=== PATIENT | female | born 1950 | race Caucasian/White ===

== ENCOUNTER 2019-10-08 11:57 | Day surgery (SDC) | payer MEDICARE ==
--- NOTE | 2019-10-05 05:55 | EKG ---
Test Date: 2019-10-04 Test Time: 17:15:57 Dispatcher Ship Pilot: ROYAL MEASUREMENT RESULTS: Intervals: Rate: 64 PA: 130 QRSD: 94 QT: 416 QTc: 429 Wagoner: P: 19 PA: 130 QRS: -38 T: 56 INTERPRETIVE STATEMENTS: Sinus rhythm with occasional premature ventricular complexes Left axis deviation Abnormal ECG No previous ECG available for comparison Electronically Signed On 10-05-19 05:54:48 PHARMACY CUSTOMER CARE SPECIALIST by Tom Lopez
--- OUTSIDE RECORDS SUMMARY | 2019-10-08 12:00 | XMS REPORT | Summary of Care ---
:1950 Author Organization [facility] Address [address] [place] [address] Care Team Providers Name Role Phone Ethan Hernandez Primary Care Provider Reason for Referral MRI/CAT Scan (Routine) Status Reason Specialty Diagnoses / Referred By Referred To Procedures Contact Contact New Request Diagnostic Diagnoses Chronic obstructive pulmonary disease, unspecified COPD type Solitary lung nodule Olga Bose, Radiology Procedures CT THORAX WO CONTRAST DO [address] [place] [phone] (Routine) Status Reason Specialty Diagnoses / Referred By Referred To Procedures Contact Contact New Request Pulmonary Function Diagnoses Chronic obstructive pulmonary disease, unspecified COPD type Olga Bose Technologist Procedures CONSULT/REFERRAL PULMONARY REHAB DO [address] [place] [phone] (Routine) Status Reason Specialty Diagnoses / Referred By Referred To Procedures Contact Contact New Request Pulmonary Function Diagnoses Chronic obstructive pulmonary disease, unspecified COPD type Olga Bose Technologist Procedures SIX MINUTE WALK Preferred Location: [facility] DO [address] [place] [phone] (Routine) Status Reason Specialty Diagnoses / Referred By Referred To Procedures Contact Contact New Request Pulmonary Function Diagnoses Chronic obstructive pulmonary disease, unspecified COPD type Bose, Shiwan, Technologist Procedures DIAGNOSTIC PROCEDURE Preferred Location: [facility] DO [address] [place] [phone] Reason for Visit Reason Comments Follow-up Results CT Scan Cough Encounter Details Date Type Department Care Team Description 09/23/2019 Office Visit [facility] Olga Bose DO Chronic obstructive pulmonary disease, unspecified COPD type (Primary Dx); Pulmonary Clinic [address] [place] [address] Solitary lung nodule [address] [place] [address] , [address] [phone] Allergies Active Allergy Reactions Severity Noted Date Comments Sulfa (Sulfonamide Antibiotics) Other - See comments 10/09/2017 Migraines Bupropion Hcl Anxiety 10/09/2017 documented as of this encounter (statuses as of 09/23/2019) Medications Medication Sig Dispensed Refills Start Date End Date Status albuterol 1.25 0 09/16/2017 Active mg/3 mL nebulizer solutionIndicatio ns: Kidney stones albuterol 90 Inhale 2 Puffs 0 Active mcg/actuation every 6 (six) inhaler hours as needed for Wheezing or Shortness of Breath. fluticasone-umecl INL 1 PUFF PO QD 0 04/06/2019 Active idin-vilanter (TRELEGY ELLIPTA) 100-62.5-25 mcg DsDv codeine-guaifenes Take 5 mL by 0 07/20/2019 09/23/2019 Discontinued in 10-100 mg/5 mL mouth. solution amoxicillin-clavu Take 1 tablet by 0 07/20/2019 09/23/2019 Discontinued lanate 875-125 mg mouth. per tablet documented as of this encounter (statuses as of 09/23/2019) Active Problems Problem Noted Date Obesity (BMI 30-39.9) 10/28/2017 Kidney stone on left side 10/20/2017 Overview: Added automatically from request for surgery [id number] documented as of this encounter (statuses as of 09/23/2019) Social History Tobacco Use Types Packs/Day Years Used Date Former Smoker Cigarettes 2 30 Quit: 2013 Smokeless Tobacco: Never Used Sex Assigned at Date Recorded Not on file Job Start Date Occupation Industry Not on file Not on file Not on file Travel History Travel Start Travel End No recent travel history available. documented as of this encounter Last Filed Vital Signs Vital Sign Reading Time Taken Comments Blood Pressure 150/89 09/23/2019 10:08 AM [employer] Pulse 69 09/23/2019 10:05 AM [employer] Temperature - - Respiratory Rate 18 09/23/2019 10:05 AM [employer] Oxygen Saturation 91% 09/23/2019 10:05 AM [employer] Inhaled Oxygen Concentration - - Weight 104.3 kg (230 lb) 09/23/2019 10:05 AM [employer] TE[employer] Height 167.6 cm (5' 6") 09/23/2019 10:05 AM [employer] TE[employer] Body Mass Index 37.12 09/23/2019 10:05 AM [employer] documented in this encounter Progress Notes Olga Bose, DO - 09/23/2019 10:20 AM CST [facility] Interventional Pulmonology [facility] Chief Complaint: Follow up for COPD History of Present Illness: Nina Alvarado is a 69 year old female here for follow up. Does have cough and phlegm production. Does have some shortness of breath especially with anxiety not as much with walking or going up two flights of stairs. Patient does note improvement of symptoms from Trelegy as well as Albuterol. Other issue: lung nodule, seen on CT scan. Not sure if she had prior CT scans although there is some suggestion nodule has been present in the past. Past Medical History: has no past medical history on file.. Reviewed no pertinent history Past Surgical History: has a past surgical history that includes [address]4445 - [place] CYSTO/URETERO W/LITHOTRIPSY &INDWELL STENT INSRT (10/28/2017) and ureteroscopic stone manipulation (Left, 10/28/2017). Family History: family history includes Lung Cancer in her mother and sister. Social History: reports that she quit smoking about 6 years ago. Her smoking use included cigarettes. She has a 60.00 pack-year smoking history. She has never used smokeless tobacco. Review of Systems: Review of Systems Constitutional: Negative. HENT: Negative. Eyes: Negative. Respiratory: Positive for cough and shortness of breath. Cardiovascular: Negative. Gastrointestinal: Negative. Genitourinary: Negative. Musculoskeletal: Negative. Skin: Negative. Neurological: Negative. Psychiatric/Behavioral: Negative. Endocrine: Endocrine negative Objective: BP (!) 150/89 | Pulse 69 | Resp 18 | Ht 5' 6" (1.676 m) | Wt 230 lb (104.3 kg) | SpO2 91% | BMI 37.12 kg/m Physical Exam Constitutional: She is oriented to person, place, and time. She appears well- developed and well-nourished. HENT: Head: Normocephalic and atraumatic. Eyes: Conjunctivae and EOM are normal. Neck: Normal range of motion. Neck supple. Cardiovascular: Normal rate and regular rhythm. Pulmonary/Chest: Effort normal. She has rhonchi in the right lower field and the left lower field. Abdominal: Soft. Bowel sounds are normal. Musculoskeletal: Normal range of motion. Neurological: She is alert and oriented to person, place, and time. Skin: Skin is warm and dry. Psychiatric: She has a normal mood and affect. Her behavior is normal. Judgment and thought content normal. Labs/Studies: CT thorax 9 mm left lung base pulmonary nodule, 3 cm opacity triangular left cardiophrenic angle, most likely atelectasis Assessment: ICD-10-CM ICD-9-CM 1. Chronic obstructive pulmonary disease, unspecified COPD type J44.9 496 2. Solitary lung nodule R91.1 793.11 Plan: 1. Will obtain PFT and six minute walk 2. Assuming PFTs qualify will refer to pulmonary rehab 3. Continue with Trelegy and Albuterol as well as nebulizers 4. Will get repeat CT scan to ensure stability of lung nodule > if patient can find previous imaging to document stability can defer repeat CT scan 4. Follow up 3 months documented in this encounter Plan of Treatment Date Type Specialty Care Team Description 12/23/2019 Office Visit Pulmonary Disease Olga Bose DO [address] [place] [phone] Name Type Priority Associated Diagnoses Order Schedule DIAGNOSTIC PROCEDURE PULMONARY FUNCTION Routine Chronic obstructive Ordered : Preferred Location: LAB pulmonary disease, 09/23/2019 [facility] unspecified COPD type SIX MINUTE WALK PULMONARY FUNCTION Routine Chronic obstructive Ordered: Preferred Location: LAB pulmonary disease, 09/23/2019 [facility] unspecified COPD type CT THORAX WO IMAGING Routine Chronic obstructive Expected: CONTRAST pulmonary disease, 09/23/2019, unspecified COPD Expires: type 09/23/2020 Solitary lung nodule Health Maintenance Due Date Last Done Comments HEPATITIS C (HCV) SCREEN 1950 DTaP,Tdap,and Td Vaccines (1 - 1963 Tdap) Breast Cancer Screening 1992 (MAMMOGRAM) COLONOSCOPY 2002 Zoster Recombinant Vaccine 2002 (SHINGRIX) (1 of 2) LUNG CANCER SCREEN: Recommended 2007 for age 55-80 with 30 + pack year history Medicare Wellness Visit 2017 Osteoporosis Screening 2017 PNEUMOCOCCAL VACCINES 65+ (1 of 2 2017 - PCV13) INFLUENZA VACCINE (#1) 2020 Postponed from 04/04/2019 (Refused) documented as of this encounter Implants Implanted Type Area Construction Producer Device Shelf Model / Identifier Expiration Serial / Date Lot Stent Ureteral 4.8fr Betsy 26cml [employer] [place] [employer] Ref#[id number] STENT Left: [place] 03/26/2019 [id number] / Implanted: Qty: 1 on 10/28/2017 by Lopez García MD at [facility] [employer] 0 / [id number] documented as of this encounter Results Not on filedocumented in this encounter Visit Diagnoses Diagnosis Chronic obstructive pulmonary disease, unspecified COPD type - Primary Solitary lung nodule Solitary pulmonary nodule documented in this encounter Insurance Payer Benefit Plan / Subscriber ID Effective Phone Address Type Group Dates [place] AARP MEDICARE [id number] 2017-Prese Medicare Adv HEALTHCARE - COMPLETE nt O MANAGED MEDICARE [id number] (Home) [place] [id number] documented as of this encounter
--- OUTSIDE RECORDS SUMMARY | 2019-10-08 12:00 | XMS REPORT | Summary of Care ---
:1950 Author Organization [facility] Address [address] [place] [address] Care Team Providers Name Role Phone Ethan Hernandez Primary Care Provider Reason for Referral MRI/CAT Scan (Routine) Status Reason Specialty Diagnoses / Referred By Referred To Procedures Contact Contact New Request Diagnostic Diagnoses Chronic obstructive pulmonary disease, unspecified COPD type Solitary lung nodule Olga Bose, Radiology Procedures CT THORAX WO CONTRAST DO [address] [place] [phone] (Routine) Status Reason Specialty Diagnoses / Referred By Referred To Procedures Contact Contact New Request Pulmonary Function Diagnoses Chronic obstructive pulmonary disease, unspecified COPD type Olga Bose Technologist Procedures CONSULT/REFERRAL PULMONARY REHAB DO [address] [place] [phone] (Routine) Status Reason Specialty Diagnoses / Referred By Referred To Procedures Contact Contact New Request Pulmonary Function Diagnoses Chronic obstructive pulmonary disease, unspecified COPD type Olga Bose Technologist Procedures SIX MINUTE WALK Preferred Location: [facility] DO [address] [place] [phone] (Routine) Status Reason Specialty Diagnoses / Referred By Referred To Procedures Contact Contact New Request Pulmonary Function Diagnoses Chronic obstructive pulmonary disease, unspecified COPD type Bose, Shiwan, Technologist Procedures DIAGNOSTIC PROCEDURE Preferred Location: [facility] DO [address] [place] [phone] Reason for Visit Reason Comments Follow-up Results CT Scan Cough Encounter Details Date Type Department Care Team Description 09/23/2019 Office Visit [facility] Olga Bose DO Chronic obstructive pulmonary disease, unspecified COPD type (Primary Dx); Pulmonary Clinic [address] [place] [address] Solitary lung nodule [address] [place] [address] , [address] [phone] Allergies Active Allergy Reactions Severity Noted Date [...] Comments Blood Pressure 150/89 09/23/2019 10:08 AM BOOKKEEPING TEACHER Pulse 69 09/23/2019 10:05 AM BOOKKEEPING TEACHER Temperature - - Respiratory Rate 18 09/23/2019 10:05 AM BOOKKEEPING TEACHER Oxygen Saturation 91% 09/23/2019 10:05 AM BOOKKEEPING TEACHER Inhaled Oxygen Concentration - - Weight 104.3 kg (230 lb) 09/23/2019 10:05 AM BOOKKEEPING TEACHER Height 167.6 cm (5' 6") 09/23/2019 10:05 AM BOOKKEEPING TEACHER Body Mass Index 37.12 09/23/2019 10:05 AM BOOKKEEPING TEACHER documented in this encounter Progress Notes Olga Bose, DO - 09/23/2019 10:20 AM CST [facility] Interventional Pulmonology Clinic Chief Complaint: Follow up [...] has a past surgical history that includes [address]47 - [place] CYSTO/URETERO W/LITHOTRIPSY &INDWELL STENT INSRT (10/28/2017) and [...] Office Visit Pulmonary Disease Olga Bose DO [address] [place] [phone] Name Type Priority Associated Diagnoses Order Schedule [...] of this encounter Implants Implanted Type Area Potato Inspector Device Shelf Model / Identifier Expiration Serial / Date Lot Stent Ureteral 4.8fr Betsy 26cml [employer] [place] [employer] Ref#[id number] STENT Left: [place] 03/26/2019 [id number] / Implanted: Qty: 1 on 10/28/2017 by Lopez García MD at [facility] [employer] 0 / [id number] documented as of this encounter Results Not on filedocumented in this encounter Visit Diagnoses Diagnosis Chronic obstructive pulmonary disease, unspecified COPD type - Primary Solitary lung nodule Solitary pulmonary nodule documented in this encounter Insurance Payer Benefit Plan / Subscriber ID Effective Phone Address Type Group Dates [place] AARP MEDICARE [id number] 2017-Prese Medicare Adv HEALTHCARE - COMPLETE nt O MANAGED MEDICARE [id number] (Home) [place] [id number] documented as of this encounter
--- OUTSIDE RECORDS SUMMARY | 2019-10-08 12:00 | XMS REPORT ---
:1950 Author Organization [facility] Address [address] [place] [address] Dr. Ndiaye [address] [place] [address] Care Team Providers Name Role Phone Unavailable Unavailable Unavailable Problems This patient has no known problems. Allergies, Adverse Reactions, Alerts This patient has no known allergies or adverse reactions. Medications This patient has no known medications.
--- OUTSIDE RECORDS SUMMARY | 2019-10-08 12:00 | XMS REPORT | Summary of Care ---
:1950 Author Organization [facility] Address [address] [place] [address] Care Team Providers Name Role Phone Ethan Hernandez Primary Care Provider Reason for Referral MRI/CAT Scan (Routine) Status Reason Specialty Diagnoses / Referred By Referred To Procedures Contact Contact Closed Diagnostic Diagnoses Chronic obstructive pulmonary disease, unspecified COPD type Solitary lung nodule Chronic obstructive pulmonary disease, unspecified COPD type Olga Bose DO Radiology Procedures CT LUNG NODULE CT THORAX WO CONTRAST CHG CT SCAN,THORAX,W/O CONTRAST CT THORAX WO CONTRAST [address] [place] [phone] Reason for Visit MRI/CAT Scan (Routine) Status Reason Specialty Diagnoses / Referred By Referred To Procedures Contact Contact Closed Diagnostic Diagnoses Chronic obstructive pulmonary disease, unspecified COPD type Solitary lung nodule Chronic obstructive pulmonary disease, unspecified COPD type Olga Bose DO Radiology Procedures CT LUNG NODULE CT THORAX WO CONTRAST CHG CT SCAN,THORAX,W/O CONTRAST CT THORAX WO CONTRAST [address] [place] [phone] Encounter Details Date Type Department Care Team Description 10/06/2019 Hospital Encounter [facility] Olga Bose DO Arrived [facility] [address] [place] [phone] Allergies Active Allergy Reactions Severity Noted Date Comments Sulfa (Sulfonamide Antibiotics) Other - See comments 10/09/2017 Migraines Bupropion Hcl Anxiety 10/09/2017 documented as of this encounter (statuses as of 10/07/2019) Medications Medication Sig Dispensed Refills Start Date End Date Status albuterol 1.25 mg/3 0 09/16/2017 Active mL nebulizer solutionIndications: Kidney stones albuterol 90 Inhale 2 Puffs 0 Active mcg/actuation inhaler every 6 (six) hours as needed for Wheezing or Shortness of Breath. fluticasone-umeclidin INL 1 PUFF PO QD 0 04/06/2019 Active -vilanter (TRELEGY ELLIPTA) 100-62.5-25 mcg DsDv documented as of this encounter (statuses as of 10/07/2019) Active Problems Problem Noted Date Obesity (BMI 30-39.9) 10/28/2017 Kidney stone on left side 10/20/2017 Overview: Added automatically from request for surgery [id number] documented as of this encounter (statuses as of 10/07/2019) Social History Tobacco Use Types Packs/Day Years Used Date Former Smoker Cigarettes 2 30 Quit: 2013 Smokeless Tobacco: Never Used Sex Assigned at Date Recorded Not on file Job Start Date Occupation Industry Not on file Not on file Not on file Travel History Travel Start Travel End No recent travel history available. documented as of this encounter Last Filed Vital Signs Not on filedocumented in this encounter Plan of Treatment Date Type Specialty Care Team Description 12/23/2019 Office Visit Pulmonary Disease Olga Bose DO [address] [place] [phone] Health Maintenance Due Date Last Done Comments HEPATITIS C (HCV) SCREEN 1950 DTaP,Tdap,and Td Vaccines (1 - 1963 Tdap) Breast Cancer Screening 1992 (MAMMOGRAM) COLONOSCOPY 2002 Zoster Recombinant Vaccine 2002 (SHINGRIX) (1 of 2) Medicare Wellness Visit 2017 Osteoporosis Screening 2017 PNEUMOCOCCAL VACCINES 65+ (1 of 2 2017 - PCV13) INFLUENZA VACCINE (#1) 2020 Postponed from 04/04/2019 (Refused) LUNG CANCER SCREEN: Recommended 10/05/2020 10/06/2019 for age 55-80 with 30 + pack year history documented as of this encounter Implants Implanted Type Area Textile Machine Mechanic Device Shelf Model / Identifier Expiration Serial / Date Lot Stent Ureteral 4.8fr Betsy 26cml [employer] [place] [employer] Ref#[id number] STENT Left: [place] 03/26/2019 [id number] / Implanted: Qty: 1 on 10/28/2017 by Lopez García MD at [facility] [employer] 0 / [id number] documented as of this encounter Procedures Procedure Name Priority Date/Time Associated Diagnosis Comments CT LOW DOSE LUNG Routine 10/06/2019 1:33 PM Chronic obstructive Results for this NODULE DATA WAREHOUSING ARCHITECT pulmonary disease, procedure are in unspecified COPD the results type section. Solitary lung nodule documented in this encounter Results CT LUNG NODULE (10/06/2019 1:33 PM DATA WAREHOUSING ARCHITECT) Specimen Impressions Performed At Multiple lung nodules including calcified nodules. Lung RADS PACS/VR/DOSE Category 2-S. Recommendation: Continue with annual screening Category 2 : Negative screen - nodules with benign appearance or behavior - continue annual screening in 12 months S modifier : COPD with dilated central pulmonary arteries, suggestive of pulmonary arterial hypertension. Narrative Performed At PROCEDURE: CT CHEST NON CONTRAST ? LUNG CANCER SCREENING. PACS/VR/DOSE CLINICAL INDICATION: Lung nodule, <1cm, mod-high risk COMPARISON: None. TECHNIQUE: Low dose helical CT was acquired from lung apices to bases was obtained and reconstructed at 1 mm, without intravenous contrast. MIP and coronal & sagittal MPR images were generated and reviewed. (DFOV=44.4 cm) FINDINGS: Lower neck/thyroid: Unremarkable. Lungs: Obstructive lung disease noted with numerous panacinar type emphysematous bulla scattered throughout both lungs with the upper lobe predominate. Minimal fibrosis is seen in the right lower lung and left lingula segment. Following lung nodules are visualized: Slightly irregular shaped 8mm nodule in the posterior left lower lung (8:71) with probable faint calcification in it. 2. Irregular shaped 5 mm pleural-based nodule in lateral left lower lung (8:60). 4 mm nodule in left lower lung (8:58) 2 mm nodule in the right lower lung (8:16). 2 mm nodule right lower lung (8:45) 2 mm calcified nodule in anterior right lung) 8:42). Irregular shaped 5 mm nodule in posterior right upper lung (8:33). 2 mm nodule lateral right upper lung (8:16). 3 mm nodule in right middle lobe (8:67) 6 mm nodule anterior right upper lobe (8:47) 2 mm nodule in lateral right lower lung (8:47) Questionable 3 mm nodule versus vessel bifurcation (8:59). Central airway: Unremarkable. Pleura: No pleural effusion, thickening or pneumothorax. Thoracic aorta and great vessels: Bilateral superior vena cava noted. Normal in diameter. Mild atherosclerotic disease affects the visualized aorta. Pulmonary arteries: Dilated central pulmonary arteries. Main pulmonary artery 3.6 cm. Heart and pericardium: No detectable coronary arterial calcification. Unremarkable cardiac morphology and pericardium. Lymph nodes: No enlarged thoracic lymph nodes. Mediastinum: Unremarkable. Thoracic spine and chest wall: No aggressive bone lesions or compression deformity in the thoracic vertebral bodies. Midthoracic dextroscoliosis. Degenerative disc disease with disc osteophyte complex encroaching into the spinal canal at T9-T10 level. Other Lines/Tubes/Devices/Hardware: None Visualized upper abdomen: Unremarkable. Procedure Note [facility], Radiant Results Inft User - 10/06/2019 1:48 PM DATA WAREHOUSING ARCHITECT PROCEDURE: CT CHEST NON CONTRAST ? LUNG CANCER SCREENING. CLINICAL INDICATION: Lung nodule, <1cm, mod-high risk COMPARISON: None. TECHNIQUE: Low dose helical CT was acquired from lung apices to bases was obtained and reconstructed at 1 mm, without intravenous contrast. MIP and coronal & sagittal MPR images were generated and reviewed. (DFOV=44.4 cm) FINDINGS: Lower neck/thyroid: Unremarkable. Lungs: Obstructive lung disease noted with numerous panacinar type emphysematous bulla scattered throughout both lungs with the upper lobe predominate. Minimal fibrosis is seen in the right lower lung and left lingula segment. Following lung nodules are visualized: Slightly irregular shaped 8mm nodule in the posterior left lower lung (8:71) with probable faint calcification in it. 2. Irregular shaped 5 mm pleural-based nodule in lateral left lower lung (8:60). 4 mm nodule in left lower lung (8:58) 2 mm nodule in the right lower lung (8:16). 2 mm nodule right lower lung (8:45) 2 mm calcified nodule in anterior right lung) 8:42). Irregular shaped 5 mm nodule in posterior right upper lung (8:33). 2 mm nodule lateral right upper lung (8:16). 3 mm nodule in right middle lobe (8:67) 6 mm nodule anterior right upper lobe (8:47) 2 mm nodule in lateral right lower lung (8:47) Questionable 3 mm nodule versus vessel bifurcation (8:59). Central airway: Unremarkable. Pleura: No pleural effusion, thickening or pneumothorax. Thoracic aorta and great vessels: Bilateral superior vena cava noted. Normal in diameter. Mild atherosclerotic disease affects the visualized aorta. Pulmonary arteries: Dilated central pulmonary arteries. Main pulmonary artery 3.6 cm. Heart and pericardium: No detectable coronary arterial calcification. Unremarkable cardiac morphology and pericardium. Lymph nodes: No enlarged thoracic lymph nodes. Mediastinum: Unremarkable. Thoracic spine and chest wall: No aggressive bone lesions or compression deformity in the thoracic vertebral bodies. Midthoracic dextroscoliosis. Degenerative disc disease with disc osteophyte complex encroaching into the spinal canal at T9-T10 level. Other Lines/Tubes/Devices/Hardware: None Visualized upper abdomen: Unremarkable. IMPRESSION Multiple lung nodules including calcified nodules. Lung RADS Category 2-S. Recommendation: Continue with annual screening Category 2 : Negative screen - nodules with benign appearance or behavior - continue annual screening in 12 months S modifier : COPD with dilated central pulmonary arteries, suggestive of pulmonary arterial hypertension. Performing Organization Address City/State/Zipcode Phone Number PACS/VR/DOSE documented in this encounter Visit Diagnoses Diagnosis Chronic obstructive pulmonary disease, unspecified COPD type Solitary lung nodule Solitary pulmonary nodule documented in this encounter Insurance Payer Benefit Plan / Subscriber ID Effective Phone Address Type Group Dates [place] [id number] [facility] HE[facility] - MEDICARE HMO MANAGED MEDICARE ADVANTAGE documented as of this encounter
[2019-10-08] MEDS ORDERED: Ringers Lactate 1,000 ML IV ONE (12:32)
[2019-10-08] MEDS ORDERED: LIDOCAINE 1% W/EPI 1:100,000 MDV 20 ML VIAL ONE ×2 (13:26→13:34)
[2019-10-08] MEDS ORDERED: LIDOCAINE 2% MPF 5 ML VIAL ONE (13:35)
[2019-10-08] MEDS ORDERED: propofoL 200 MG/20 ML VIAL IV ONE (13:35)
[2019-10-08] MEDS ORDERED: FENTANYL CITR 100 MCG/2 ML ONE (13:35)
[2019-10-08] MEDS ORDERED: MIDAZOLAM HCL 2 MG/2 ML INJ ONE (13:36)
[2019-10-08] MEDS ORDERED: ONDANSETRON 4 MG/2 ML VIAL ONE (13:36)
[2019-10-08 16:24] VITALS: BP 152/67; TEMP 99.2; O2SAT 96
--- NOTE | 2019-10-08 17:44 | P.BOP ---
Preoperative diagnosis: BCC nose Postoperative diagnosis: same Primary procedure: WLE nose 1.2 cm with FS, layered intermediate closure Protective Signal Operator: NONE,NONE Estimated blood loss: <5ml Specimen: nose BCC, suture 12 oclock, margins negative on FS Anesthesia: General Complications: None Drain(s): Nasogastric Fluids & blood products: see anesthesia record Transferred to: Recovery Room Condition: Good
--- NOTE | 2019-10-09 02:06 | OP ---
Date of Procedure: 10/08/2019 Surgeon: Barbra Mendes MD Preoperative Diagnosis: Basal cell carcinoma left nasal ala. Postoperative Diagnosis: Basal cell carcinoma left nasal ala. Procedure: Excision of skin cancer of the nose with closure by a layered intermediate repair. Indication For Procedure: Nina Alvarado presented with a biopsy confirmed basal cell carcinoma. At the site of the biopsy, she had persistent crusting and a small area suspicious for gross residual di sease. The risks, benefits, and alternatives to procedure were discussed with the patient who agreed to proceed. Description Of Procedure: The patient was brought to the operating room. She was placed under gener al anesthesia via LMA. The area of the left nose, cheek, and upper lip are injected with 1% lidocain e with epinephrine. The area of her biopsy was closely inspected and excision was made of the site i ncluding the base of the nasal ala extending slightly into the alar crease on to the medial cheek and upper portion of the lip. The skin was incised using the needlepoint electrocautery. Full-thicknes s skin was removed and the specimen was marked with a suture at 12 o'clock, corresponding with the grimm periormost aspect of the lesion. The specimen was sent to Pathology for frozen section analysis to c onfirm negative margins. These margins were confirmed as negative and plan for closure was made. Th e defect was approximately 1 x 1.2 cm. The surrounding skin of the cheek was carefully undermined us ing the Bovie. The skin was then advanced over the defect and held in place using a 4-0 Vicryl sutur e. The skin was then closed using a 5-0 nylon with interrupted sutures. Triple antibiotic ointment was applied to the incision and the patient was returned to care of Anesthesia for awakening, extubat ion in the operating room, which proceeded without difficulty. The patient will be discharged home today and follow up with Dr. Mendes in about 10 days for removal of her sutures. SHIRLEY/CRUZITO Voice ID: [id number] Report ID: [id number]
== END 2019-10-08 16:10 | disposition home or self-care (01) ==
LOC: OR 11:57
PROVIDERS: ATTEND Otolaryngology
PROC: 0HB1XZZ Excision of Face Skin, External Approach (ICD-10-PCS; principal; 2019-10-08 13:30)
DX: C44.311 Basal cell carcinoma of skin of nose (principal); J44.9 Chronic obstructive pulmonary disease, unspecified; Z88.2 Allergy status to sulfonamides; Z88.8 Allergy status to other drugs, medicaments and biological substances; E66.01 Morbid (severe) obesity due to excess calories; Z68.37 Body mass index [BMI] 37.0-37.9, adult; Z80.9 Family history of malignant neoplasm, unspecified
CPT/HCPCS: 93005; 88331; 88332; 88305; 12051; 11642; J2704; J2250; J3010; J7120; J2405

== ENCOUNTER 2023-06-03 10:15 | Day surgery (SDC) | payer MEDICARE ==
[2023-05-19 11:24] LABS: Absolute Lymphocytes (CBC) 1.3 K/uL (0.7-4.9); Hematocrit 45.4 % (36.0-45.0); MCV 90.2 fL (80-100); MPV 8.6 fL (7.6-11.3); Platelets 180 thou/uL (152-406); RBC Red Blood Cell Count 5.03 M/uL (3.86-4.86)
[2023-05-19 11:39] LABS: Potassium 3.8 mEq/L (3.5-5.1)
[2023-05-19 11:40] LABS: Protime INR 1.28
--- NOTE | 2023-05-19 13:23 | RAD REPORT ---
EXAM DESCRIPTION: RAD - Chest Pa And Lat (2 Views) - 05/19/2023 11:37 am CLINICAL HISTORY: Pre op pending ESWL. Hypertension COMPARISON: No comparisons TECHNIQUE: PA and lateral views of the chest were obtained. FINDINGS: Patchy left basilar airspace opacities, possibly pertaining to the left lingula. Heart siz e is normal and central vasculature is within normal limits. No pleural effusion or pneumothorax seen . No acute bony finding noted. IMPRESSION: Patchy left basilar airspace opacities, may reflect atelectasis or residual/ early pneum onia. .
[2023-06-03] MEDS ORDERED: Ringers Lactate 1,000 ML IV ONE (10:32)
[2023-06-03] MEDS ORDERED: CEFAZOLIN SODIUM 2 GM/VIAL ONE (14:31)
--- NOTE | 2023-06-03 15:15 | RAD REPORT ---
EXAM DESCRIPTION: RAD - Abdomen 1 View (KUB) - 06/03/2023 2:37 pm CLINICAL HISTORY: PREOP. Hypertension COMPARISON: No comparisons TECHNIQUE: Single AP view of the abdomen. FINDINGS: Nonobstructive bowel gas pattern. No air-fluid levels, free air, or pneumatosis. Left flan k radiopaque calcifications largest measure 1.4 cm. Few pelvic phleboliths. No significant bony abnormality. IMPRESSION: Left flank calcifications suggestive of renal calculi.
[2023-06-03] MEDS ORDERED: FENTANYL CITR 100 MCG/2 ML ONE (15:37)
[2023-06-03] MEDS ORDERED: propofoL 200 MG/20 ML VIAL IV ONE (15:37)
[2023-06-03] MEDS ORDERED: MIDAZOLAM HCL 2 MG/2 ML INJ ONE (15:38)
[2023-06-03] MEDS ORDERED: LIDOCAINE 2% MPF 5 ML VIAL ONE (15:40)
[2023-06-03] MEDS ORDERED: ONDANSETRON 4 MG/2 ML VIAL ONE (15:40)
[2023-06-03] MEDS ORDERED: dexAMETHasone 4 MG/ML VIAL ONE (16:03)
[2023-06-03] MEDS ORDERED: CODEINE 30MG/APAP 300MG TAB PO PRN (17:06)
[2023-06-03 18:01] VITALS: BP 107/89; TEMP 97.2; O2SAT 93
[2023-06-03] MEDS ORDERED: CODEINE 30MG/APAP 300MG TAB ONE (18:08)
--- NOTE | 2023-06-03 21:10 | OP ---
Surgeon: RODRI BREWER Preoperative Diagnoses: 1.Gross hematuria. 2.Chronic anticoagulation with Eliquis relative to history of atrial fibrillation. 3.Status post unremarkable cystoscopy, 04/02/2023. 4.Status post CT urography, 02/13/2023, revealing a 1.1 cm midpole left renal calculus without evide nce of renal mass or filling defect. Postoperative Diagnoses: 1.Gross hematuria. 2.Chronic anticoagulation with Eliquis relative to history of atrial fibrillation. 3.Status post unremarkable cystoscopy, 04/02/2023. 4.Status post CT urography, 02/13/2023, revealing a 1.1 cm midpole left renal calculus without evide nce of renal mass or filling defect. Principal Procedure: Left extracorporeal shock wave lithotripsy/ESWL. Indication For Procedure: Ms. Alvarado presented [facility] with gross hematuria in the set ting of a history of smoking. She underwent CT urography in February that was unremarkable except for th e presence of a 1.1 cm left interpolar renal calculus. She underwent cystoscopy on 04/02/2023, which revealed a markedly trabeculated detrusor with wide-mouth right lateral wall diverticulum, but no si gns of urothelial malignancy. She was thus counseled on the potential that the stone burden in the s etting of the Eliquis was contributing to her gross hematuria and recommended for management of the s tone. KUB was obtained preoperatively and did verify the visibility of the stone, which was measured at around 10 to 14 mm. Procedure In Detail: The patient was consented in the preoperative holding area before being transfe rred to the operative suite where general anesthesia was induced. She was given Ancef 2 g IV antimic robial prophylaxis and pneumo boots were provided for DVT prophylaxis. She was placed supine on the procedure table with a water bath beneath her flank. Shockwave lithotripsy targeting was then perfor med in the anteroposterior as well as the dorsal ventral and left-right positions to center on the ce ntral portion of the stone burden, which was somewhat oblong and in at least 2 pieces. Shockwave lit hotripsy was then begun, slowly increasing the power, delivered to the stone over the course of about 500 shocks and with 2 minutes pause between 250 and 300 shocks given. After about 1200 shocks had b een delivered, the stone burden had broken up significantly, and the pieces of the stone had distribu shirin themselves within the upper pole and lower pole calices of the kidney. So, each of those fragmen ts were then independently targeted over the course of another 1200 shocks for a total of around 2500 shocks delivered before we reassessed and found mostly dust remnants within the mid and lower pole c alices as well as the upper pole calyx with density remaining in each of those locations. As a resul t, we targeted the midpole densities again and shocked for the remaining 500 shocks in order to ensur e complete fragmentation of the stone burden. A total of 3000 shocks were delivered, and the shock w ave lithotripsy was concluded. She was then awakened from general anesthesia, transferred to a [facility], and then transferred to the recovery room in good condition. Complications: None. Discharge Disposition: Follow up will be required to ensure resolution of the gross hematuria follow ing treatment of the stones. She will strain her urine for any stone fragments and bring them with h er to the office for chemical analysis. Subsequent episodes of gross hematuria will require definiti ve surgical re-evaluation. If she is a recurrent stone former, metabolic profile assessment will be required in 1 to 2 months. KUB should be obtained prior to followup in about 2 to 3 months after the metabolic profile assessment has been completed if necessary. NINOSKA/CRUZITO Voice ID: [id number] Report ID: [id number]
== END 2023-06-03 18:20 | disposition home or self-care (01) ==
LOC: OR 10:15
PROVIDERS: ATTEND Urology
PROC: 0TF4XZZ Fragmentation in Left Kidney Pelvis, External Approach (ICD-10-PCS; principal; 2023-06-03 11:45)
DX: N20.0 Calculus of kidney (principal); R31.0 Gross hematuria; I48.11 Longstanding persistent atrial fibrillation; N39.8 Other specified disorders of urinary system; J44.9 Chronic obstructive pulmonary disease, unspecified; Z79.01 Long term (current) use of anticoagulants; Z87.891 Personal history of nicotine dependence; Z88.2 Allergy status to sulfonamides; Z88.8 Allergy status to other drugs, medicaments and biological substances; I10 Essential (primary) hypertension; E66.9 Obesity, unspecified; Z68.35 Body mass index [BMI] 35.0-35.9, adult; G47.33 Obstructive sleep apnea (adult) (pediatric)
CPT/HCPCS: 87088; 85025; 87086; 80048; 36415; 85610; 85730; 74018; 71046; 50590; J2704; J1100; J2001; J2250; J3010; J2405; J7120

== ENCOUNTER 2023-12-07 20:32 | Inpatient (IN) | payer MEDICARE ==
--- OUTSIDE RECORDS SUMMARY | 2023-12-07 20:37 | XMS REPORT | Continuity of Care Document ---
Author Name Unknown Address [address] [facility] [address] [place] [address] [facility] Address [address] [facility] [address] [place] [address] Care Team Providers Care Associate Professor Of Anthropology Name Role Phone EMILY HERNANDEZ Primary Care Physician Unavailab EMILY Pierce Attending Clinician Unavailable Aixa Sánchez Attending Clinician [phone] Dave Lemon Attending Clinician UnavailObi Herrera Attending Clinician Unavailable Christina Capone Attending Clinician Demetra Woodall Attending Clinician [phone] Lyle Schaefer Attending Clinician Unavailable Gonzalo_Ean Attending Clinician Unavailable GAYLORD_S Attending Clinician Unavailable Efrain Hogeu DO Attending Clinician EFRAIN HOGUE Attending Clinician Unavailable EFRAIN HOGUE Attending Clinician Unavailable Doctor Unassigned, [place] Attending Clinician U navailable Dave Lemon Admitting Clinician UnavailObi Herrera Admitting Clinician Unavailable Physician, No Primary or Family Admitting Clinic higinio Unavailable Lyle Schaefer Admitting Clinician Unavailable Gonzalo_Ean Admitting Clinician Unavailable GAYLORD_S Admitting Clinician Unavailable EFRAIN HOGUE Admitting Clinician Unavailable Payers Payer Name Policy Type Policy Number Effective Date Expirati on Date Source [employer] (MEDICARE REPLACEMENT HMO) [id number] 2020 00:00:00 Problems Condition Name Condition Details Condition Category Status Onset Date Resolution Date Last Treatment Date Treating Clinician Comments Source Obesity (BMI 30-39.9) Obesity (BMI 30-39.9) Disease Active 3- 00:00: 00 [facility] Nephrolith iasis Left nephrolith iasis Problem [facility] [id number] Chronic anticoagul ation Problem [facility] [id number] Gross hematuria Problem [facility] [id number] Voiding dysfunctio n Problem [facility] [id number] Recurrent nephrolith iasis Problem [facility] [id number] Lower urinary tract symptoms (LUTS) Problem [facility] [id number] OAB (overactiv e bladder) Problem [facility] Allergies, Adverse Reactions, Alerts Allergy Name Allergy Type Status Severity Reaction(s) Onset Date Inactive Date Treating Clinician Comments Source Sulfa (Sulfona mide Antibiot ics) DA Active [place] MIGRAINES 2022-08-19 00:00: 00 [facility] bupropio n DA Active [place] ANXIETY 2022-08 219 00:00: 00 [facility] bupropio n DA Active MO ANXIETY 8-11 00:00: 00 [facility] Sulfa (Sulfona mide Antibiot ics) DA Active MO MIGRAINES 3-15 00:00: 00 [facility] Sulfa (Sulfona mide Antibiot ics) DA Active MO MIGRAINES 3-14 00:00: 00 [facility] Sulfa (Sulfona mide Antibiot ics) Propensi ty to adverse reaction s Active Other - See comments 3- 00:00: 00 [facility] Bupropio n Hcl Propensi ty to adverse reaction s Active Anxiety 3-08 00:00: 00 [facility] SULFA (SULFONA MIDE ANTIBIOT ICS) Drug Class Active Other-Cmnt 10-09 00:00: 00 [facility] BUPROPIO N HCL DRUG INGREDI Active Anxiety 10-09 00:00: 00 [facility] [address] Drug allergy Active Unknown [facility] Substanc e with sulfonam diana structur e and antibact erial mechanis m of action (substan ce) Substanc e with sulfonam diana structur e and antibact erial mechanis m of action (substan ce) Active Unknown [facility] Social History Social Habit Start Date Stop Date Quantity Comments Source History of Tobacco Use [facility] Sex Assigned At [facility] Cigarettes smoked current (pack per day) - Reported 2019-09-23 00:00:00 2019-09-23 00:00:00 [facility] Tobacco use and exposure 2019-09-23 00:00:00 2019-09-23 00:00:00 Never used [facility] Cigarette pack-years 2019-09-23 00:00:00 2019-09-23 00:00:00 [facility] Smoking Status Start Date Stop Date Source Former Smoker 2023-09-10 00:00:00 2023-09-10 00:00:00 [facility] Medications Ordered Medication Name Filled Medication Name Start Date Stop Date Current Medication? Ordering Clinician Indication Dosage Frequency Signature (SIG) Comments Components Source Solifenacin Succinate 5 MG Solifenacin Succinate 5 MG 2- 00:00: 00 No 1{table t} QD Solifenaci n Succinate 5 MG Solifenacin Succinate 5 MG Solifenacin Succinate 5 MG 2- 00:00: 00 No 1{table t} QD Solifenaci n Succinate 5 MG Solifenacin Succinate 5 MG Solifenacin Succinate 5 MG 2- 00:00: 00 No 1{table t} QD Solifenaci n Succinate 5 MG doxycycline monohydrate 100 mg tablet 904 00:00: 00 Yes 100mg Take 1 tablet by mouth 2 (two) times daily. [facility] predniSONE 10 mg tablet 04-07 00:00: 00 04-13 04:59 :00 No 40mg Take 4 tablets by mouth daily for 5 days. [facility] albuterol 90 mcg/actuati on inhaler 2018-08 22:12: 26 Yes 2{puff} Inhale 2 Puffs every 6 (six) hours as needed for Wheezing or Shortness of Breath. [facility] codeine-gua ifenesin 10-100 mg/5 mL solution 2018-08 00:00: 00 09-23 00:00 :00 No 5mL Take 5 mL by mouth. [facility] amoxicillin -clavulanat e 875-125 mg per tablet 2018-08 00:00: 00 09-23 00:00 :00 No 1{tbl} Take 1 tablet by mouth. [facility] fluticasone -umeclidin- vilanter (TRELEGY ELLIPTA) 100-62.5-25 mcg DsDv 04-06 00:00: 00 Yes INL 1 PUFF PO QD [facility] albuterol 1.25 mg/3 mL nebulizer solution 09-16 00:00: 00 Yes [id number] [facility] Magnesium 400 MG Magnesium 400 MG No Magnesium 400 MG Losartan Potassium 50 MG Losartan Potassium 50 MG No 1{table t} QD Losartan Potassium 50 MG Carvedilol 3.125 MG Carvedilol 3.125 MG No 1{table t_with_ food} BID Carvedilol 3.125 MG Vitamin C Vitamin C No Vitamin C predniSONE 10 MG predniSONE 10 MG No 1{table t} QD predniSONE 10 MG Zinc 50 MG Zinc 50 MG No 1{ table t} QD Zinc 50 MG Flecainide Acetate 50 MG Flecainide Acetate 50 MG No Flecainide Acetate 50 MG Breztri Aerosphere 160-9-4.8 MCG/ACT Breztri Aerosphere 160-9-4.8 MCG/ACT No 2{puffs } BID Breztri Aerosphere 160-9-4.8 MCG/ACT Vitamin D3 50 MCG (1999 UT) Vitamin D3 50 MCG (1999) No 1{table t} QD Vitamin D3 50 MCG (1999) Levalbutero l Tartrate 45 MCG/ACT Levalbutero l Tartrate 45 MCG/ACT No 1{puff_ as_need ed} QID Levalbuter ol Tartrate 45 MCG/ACT Eliquis 5 MG Eliquis 5 MG No 1{table t} BID Eliquis 5 MG Calcium 600 MG Calcium 600 MG No 1{table t_with_ meals} BID Calcium 600 MG Losartan Potassium 50 MG Losartan Potassium 50 MG No 1{table t} QD Losartan Potassium 50 MG Eliquis 5 MG Eliquis 5 MG No 1{table t} BID Eliquis 5 MG Zinc 50 MG Zinc 50 MG No 1{ table t} QD Zinc 50 MG Potassium Gluconate 595 MG Potassium Gluconate 595 MG No 1{capsu le_with _food} QD Potassium Gluconate 595 MG Breztri Aerosphere 160-9-4.8 MCG/ACT Breztri Aerosphere 160-9-4.8 MCG/ACT No 2{puffs } BID Breztri Aerosphere 160-9-4.8 MCG/ACT Magnesium 400 MG Magnesium 400 MG No Magnesium 400 MG Vitamin D3 50 MCG (1999) Vitamin D3 50 MCG (1999) No 1{table t} QD Vitamin D3 50 MCG (1999) predniSONE 10 MG predniSONE 10 MG No 1{table t} QD predniSONE 10 MG Calcium 600 MG Calcium 600 MG No 1{table t_with_ meals} BID Calcium 600 MG Flecainide Acetate 50 MG Flecainide Acetate 50 MG No Flecainide Acetate 50 MG Levalbutero l Tartrate 45 MCG/ACT Levalbutero l Tartrate 45 MCG/ACT No 1{puff_ as_need ed} QID Levalbuter ol Tartrate 45 MCG/ACT Carvedilol 3.125 MG Carvedilol 3.125 MG No 1{table t_with_ food} BID Carvedilol 3.125 MG Losartan Potassium 50 MG Losartan Potassium 50 MG No 1{table t} QD Losartan Potassium 50 MG Eliquis 5 MG Eliquis 5 MG No 1{table t} BID Eliquis 5 MG Zinc 50 MG Zinc 50 MG No 1{ table t} QD Zinc 50 MG Potassium Gluconate 595 MG Potassium Gluconate 595 MG No 1{capsu le_with _food} QD Potassium Gluconate 595 MG Breztri Aerosphere 160-9-4.8 MCG/ACT Breztri Aerosphere 160-9-4.8 MCG/ACT No 2{puffs } BID Breztri Aerosphere 160-9-4.8 MCG/ACT Magnesium 400 MG Magnesium 400 MG No Magnesium 400 MG Vitamin D3 50 MCG (1999) Vitamin D3 50 MCG (1999) No 1{table t} QD Vitamin D3 50 MCG (1999) predniSONE 10 MG predniSONE 10 MG No 1{table t} QD predniSONE 10 MG Calcium 600 MG Calcium 600 MG No 1{table t_with_ meals} BID Calcium 600 MG Flecainide Acetate 50 MG Flecainide Acetate 50 MG No Flecainide Acetate 50 MG Levalbutero l Tartrate 45 MCG/ACT Levalbutero l Tartrate 45 MCG/ACT No 1{puff_ as_need ed} QID Levalbuter ol Tartrate 45 MCG/ACT Carvedilol 3.125 MG Carvedilol 3.125 MG No 1{table t_with_ food} BID Carvedilol 3.125 MG Magnesium 400 MG Magnesium 400 MG No Magnesium 400 MG Losartan Potassium 50 MG Losartan Potassium 50 MG No 1{table t} QD Losartan Potassium 50 MG Carvedilol 3.125 MG Carvedilol 3.125 MG No 1{table t_with_ food} BID Carvedilol 3.125 MG Vitamin C Vitamin C No Vitamin C predniSONE 10 MG predniSONE 10 MG No 1{table t} QD predniSONE 10 MG Zinc 50 MG Zinc 50 MG No 1{ table t} QD Zinc 50 MG Flecainide Acetate 50 MG Flecainide Acetate 50 MG No Flecainide Acetate 50 MG Breztri Aerosphere 160-9-4.8 MCG/ACT Breztri Aerosphere 160-9-4.8 MCG/ACT No 2{puffs } BID Breztri Aerosphere 160-9-4.8 MCG/ACT Vitamin D3 50 MCG (1999 UT) Vitamin D3 50 MCG (1999 UT) No 1{table t} QD Vitamin D3 50 MCG (1999) Levalbutero l Tartrate 45 MCG/ACT Levalbutero l Tartrate 45 MCG/ACT No 1{puff_ as_need ed} QID Levalbuter ol Tartrate 45 MCG/ACT Eliquis 5 MG Eliquis 5 MG No 1{table t} BID Eliquis 5 MG Calcium 600 MG Calcium 600 MG No 1{table t_with_ meals} BID Calcium 600 MG Magnesium 400 MG Magnesium 400 MG No Magnesium 400 MG Losartan Potassium 50 MG Losartan Potassium 50 MG No 1{table t} QD Losartan Potassium 50 MG Carvedilol 3.125 MG Carvedilol 3.125 MG No 1{table t_with_ food} BID Carvedilol 3.125 MG Vitamin C Vitamin C No Vitamin C predniSONE 10 MG predniSONE 10 MG No 1{table t} QD predniSONE 10 MG Zinc 50 MG Zinc 50 MG No 1{ table t} QD Zinc 50 MG Flecainide Acetate 50 MG Flecainide Acetate 50 MG No Flecainide Acetate 50 MG Breztri Aerosphere 160-9-4.8 MCG/ACT Breztri Aerosphere 160-9-4.8 MCG/ACT No 2{puffs } BID Breztri Aerosphere 160-9-4.8 MCG/ACT Vitamin D3 50 MCG (1999) Vitamin D3 50 MCG (1999) No 1{table t} QD Vitamin D3 50 MCG (1999) Levalbutero l Tartrate 45 MCG/ACT Levalbutero l Tartrate 45 MCG/ACT No 1{puff_ as_need ed} QID Levalbuter ol Tartrate 45 MCG/ACT Eliquis 5 MG Eliquis 5 MG No 1{table t} BID Eliquis 5 MG Calcium 600 MG Calcium 600 MG No 1{table t_with_ meals} BID Calcium 600 MG Vital Signs Vital Name Observation Time Observation Value Comments S ource respiratory rate 2023-09-10 14:15:00 18 /min [facility] blood pressure systolic 2023-09-10 14:15:00 118 mm[Hg] [facility] blood pressure diastolic 2023-09-10 14:15:00 66 mm[Hg] [facility] height 2023-09-10 14:15:00 67 [in_i] Commo n [facility] weight 2023-09-10 14:15:00 225 [lb_av] Comm on [facility] temperature 2023-09-10 14:15:00 97.9 [degF] Com mon [facility] bmi 2023-09-10 14:15:00 35.24 kg/m2 Comm on [facility] oximetry 2023-09-10 14:15:00 99 % Commo n [facility] height 2023-06-11 14:15:00 67 [in_i] Commo n [facility] weight 2023-06-11 14:15:00 227.4 [lb_av] Co mmon [facility] temperature 2023-06-11 14:15:00 98.6 [degF] Com [facility] bmi 2023-06-11 14:15:00 35.61 kg/m2 Comm on [facility] oximetry 2023-06-11 14:15:00 99 % Commo n [facility] respiratory rate 2023-06-11 14:15:00 18 /min [facility] blood pressure systolic 2023-06-11 14:15:00 140 mm[Hg] [facility] blood pressure diastolic 2023-06-11 14:15:00 69 mm[Hg] [facility] Systolic blood pressure 2019-09-23 16:08:00 150 mm[Hg] [facility] Diastolic blood pressure 2019-09-23 16:08:00 89 mm[Hg] [facility] Heart rate 2019-09-23 16:05:00 69 /min [facility] 2019-09-23 16:05:00 18 /min [facility] Body height 2019-09-23 16:05:00 167.6 cm [facility] Body weight 2019-09-23 16:05:00 104.327 kg [facility] BMI 2019-09-23 16:05:00 37.12 kg/m2 [facility] Oxygen saturation in Arterial blood by Pulse oximetry 2019-09-23 16:05:00 91 /min [facility] Procedures Procedure Date / Time Performed Performing Clinicia n Source PVR 2023-06-11 00:00:00 [facility] S pirit [facility] [id number] 2022-10-16 00:00:00 PEPGR [facility] CT LOW DOSE LUNG NODULE 2019-10-06 19:33:40 Efrain Hogue [facility] EXTERNAL PROVIDER - ADC CARDIOLOGY 2019-09-23 06:01:00 Doctor Unassigned, [place] [facility] Encounters Start Date/Time End Date/Time Encounter Type Admission Type Attending Clinicians Care Facility Care Department Encounter ID Source 2023-06-11 13:45:00 Outpatient EMILY HERNANDEZ STLMLC STLMLC [id number] [facility] 2023-09-17 00:00:00 2023-09-17 00:00:00 (TEL) STLMLC STLMLC [id number] [facility] 2023-09-10 00:00:00 2023-09-10 00:00:00 OFFICE VISIT ESTAB PT LEVEL 4 STLMLC STLMLC [id number] [facility] 2023-07-25 17:00:00 2023-07-25 17:30:00 D2Me Revisit: Gap Closure & Clinical Check-in Aixa Sánchez 2.16.840. [id number] 2.16.840.1. [id number] [facility] 2023-07-22 04:49:00 2023-07-23 10:47:00 Inpatient AUDRA Lemon Dave HCAWU INTE.02 [id number] [facility] 2023-07-14 16:57:00 2023-07-16 15:22:00 Inpatient Obi Faith HCAWU INTE.02 [id number] [facility] 2023-07-14 00:00:00 2023-07-14 00:00:00 (TEL) STLMLC STLMLC [id number] [facility] 2023-06-11 00:00:00 2023-06-11 00:00:00 OFFICE VISIT ESTAB PT LEVEL 3 STLMLC STLMLC [id number] [facility] 2023-03-20 16:30:00 2023-03-20 17:30:00 CAV Christina Capone 2.16.840. [id number] 2.16.840.1. [id number] [facility] 2023-03-18 13:00:00 2023-03-18 13:00:00 Inpatient Dave Her HCAWU SURG [id number] [facility] 2023-03-18 08:00:00 2023-03-18 08:00:00 Outpatient Dave Her HCACL LABO [id number] [facility] 2022-12-20 20:30:00 2022-12-20 21:00:00 Care Scar Woodall 2.16.840. [id number] 2.16.840.1. [id number] [facility] 2022-10-15 15:40:00 2022-10-16 18:08:00 Inpatient Lyle Cárdenas HCAWU TELE [id number] [facility] 2022-07-23 22:30:00 2022-07-23 23:00:00 CAV Revisit: Gap Closure & Clinical Check-in Aixa Sánchez 2.16.840. [id number] 2.16.840.1. [id number] [facility] 2022-07-22 00:00:00 2022-07-22 00:00:00 Outpatient Gonzalo_V DMG [facility] [id number] [facility] 2022-07-22 00:00:00 2022-07-22 00:00:00 Outpatient Williams_V DMG [facility] [id number] [facility] 2022-04-09 14:30:00 2022-04-09 15:30:00 CAV Aixa Sánchez 2.16.840. [id number] 2.16.840.1. [id number] [facility] 2022-03-25 00:00:00 2022-03-25 00:00:00 Outpatient Williams_V DMG DM 0822 [facility] 2022-02-15 03:53:00 2022-02-15 03:53:00 Outpatient GAYLORD_S DMG DMG [id number] [facility] 2021-09-11 17:00:00 2021-09-11 18:00:00 CAV Christina Capone 2.16.840. [id number] 2.16.840.1. [id number] [facility] 2021-09-07 05:27:00 2021-09-07 05:27:00 Outpatient GAYLORD_S DMG DM [id number] [facility] 2021-06-05 12:00:00 2021-06-05 12:00:00 Outpatient GAYLORD_S DMG DMG [id number] [facility] 2021-01-29 10:48:00 2021-01-29 10:48:00 Outpatient GAYLORD_S DMG DMG [id number] [facility] 2020-05-15 01:36:00 2020-05-15 01:36:00 Outpatient Young_J MMG G [id number] [facility] 2020-04-05 00:00:00 2020-04-05 00:00:00 [facility] 1.2.840.114 [id number] 4.2.7.2.686 [id number] [facility] 2019-12-17 13:00:00 2019-12-17 13:00:00 Outpatient R EFRAIN HOGUE [facility] [id number] [facility] 2019-12-17 07:54:46 2019-12-17 08:14:46 Telemedici ne Visit Efrain Hogue [facility] 1.2.840.114 350.1.13.10 4.2.7.2.686 [id number] [facility] 2019-12-10 00:00:00 2019-12-10 00:00:00 Telephone Lidya [facility] 1.2.840.114 350.1.13.10 4.2.7.2.686 [id number] [facility] 2019-10-06 12:48:47 2019-10-06 23:59:00 Outpatient R EFRAIN HOGUE [facility] [id number] [facility] 2019-10-06 12:48:00 2019-10-06 23:59:00 Hospital Encounter fErain Hogue [facility] 1.2.840.114 350.1.13.10 4.2.7.2.686 [id number] [facility] 2019-09-23 09:55:14 2019-09-23 10:48:49 Office Visit Efrain Hogue [facility] 1.2.840.114 350.1.13.10 4.2.7.2.686 [id number] [facility] 2019-09-23 00:00:00 2019-09-23 00:00:00 Orders Only Doctor Unassigned, [place] [facility] 1.2.840.114 350.1.13.10 4.2.7.2.686 [id number] [facility] Results Test Description Test Time Test Comments Results Result Co mments Source CBC W/AUTO [id number] 05:07:00* Test Item Value Reference Range Interpretation Comme nts WHITE BLOOD CELL (test code = WBC) 5.2 K/MM3 3.8-9.8 N RED BLOOD CELL (test code = RBC) 4.23 M/MM3 3.58-4.97 N HEMOGLOBIN (test code = HGB) 12.8 G/DL 11.2-14.9 N HEMATOCRIT (test code = HCT) 41.1 % 33.2-43.5 N MEAN CELL VOLUME (test code = MCV) 97 fL 80.7-99.1 N MEAN CELL HGB (test code = MCH) 30.3 pg 27.0-34.1 N MEAN CELL HGB CONCETRATION (test code = MCHC) 31.1 % 32.2-35.7 L RED CELL DISTRIBUTION WIDTH (test code = RDW) 13.2 % 12.1-15.2 N PLATELET COUNT (test code = PLT) 114 K/MM3 129-368 L MEAN PLATELET VOLUME (test c ode = MPV) 12.4 fl 7.4-10.4 H NEUTROPHIL % (test code = NT%) 79.8 % 43-75 H IMMATURE GRANULOCYTE % (test code = IG%) 0.6 % 0.0-2.0 N LYMPHOCYTE % (test code = LY%) 9.5 % 14-44 L MONOCYTE % (test code = MO%) 6.5 % 4-13 N EOSINOPHIL % (test code = EO%) 2.1 % 0-6 N BASOPHIL % (test code = BA%) 1.5 % 0-2 N NUCLEATED RBC % (test code = NRBC%) 0.0 % 0-1.0 N NEUTROPHIL # (test code = NT#) 4.18 K/mm3 2.0-7.6 N IMMATURE GRANULOCYTE # (test code = IG#) 0.03 x10 3/uL 0-0.03 N LYMPHOCYTE # (test code = LY#) 0.50 K/mm3 1.0-3.8 L MONOCYTE # (test code = MO#) 0.34 K/mm3 0.1-0.8 N EOSINOPHIL # (test code = EO#) 0.11 K/mm3 0.0-0.2 N BASOPHIL # (test code = BA#) 0.08 K/mm3 0.0-0.2 N NUCLEATED RBC # (test code = NRBC#) 0.00 K/mm3 0.0-0.1 N - XR CHEST [id number] 11:42:00 [facility] 1950 Sex: F Patient Name: DERRICK LOOMIS Unit No: [id number] EXAMS: CPT CODE: [id number] XR CHEST 1V [id number] EXAM: Portable chest one view. Location code:h114 HISTORY: A flutter COMPARISON: 07/14/2023 COMMENT: . The lungs and pleural spaces are clear. Lungs are normally expanded. The aorta, pulmonary vasculature and mediastinum are within normal limits. The cardiac silhouette is enlarged.. Visualized skeletal structures are unremarkable. IMPRESSION: No active disease in the chest. Cardiomegaly at 1142 Reported and signed by: Jayme Dwyer M.D. CC: Obi Cardoza MD; Dave Lemon Technologist: DAVIN ORTIZ RT Transcrpt Date/Tm/Trnsp: 07/22/2023 (1142) [email or web address] Orig Print D/T: S: 07/22/2023 (1145) [facility] NAME: DERRICK LOOMIS [id number] PHYS: [place] [address] : 1950 AGE: 72 SEX: F : Z.[id number] A PHONE #: [phone] EXAM DATE: 07/22/2023 STATUS: ADM IN FAX #: [phone] RADIOLOGY NO: PAGE 1 Signed ReportPROTHROMBIN [id number] 09:03:00* Test Item Value Reference Range Interpretation Comme nts PROTHROMBIN TIME PATIENT (test code = PTP) 22.2 SECONDS 10.1-12.6 H INTERNATIONAL NORMAL RATIO (test code = INR) 2.0 0.86-1.14 H The INR is to be used only for monitoring oral anticoagulanttherap y. INDICATION INR VALUE -------1. Prophylaxis, deep venous thrombosis, including high risk surgery. 2.0 - 3.0 2. Prophylaxis, deep venous thrombosis, hip surgery, treatment for deep venous thrombosis or pulmonary prevention of systemic embolism in patients with valvular heart disease, atrial fibrillation, tissue heart valve, or acute myocardial infarction. 2.0 - 3.0 3. Mechanical prosthesis heart valves, recurrent systemic embolism. 3.0 - 4.5 PTT [id number] 09:03:00* Test Item Value Reference Range Interpretation Comme nts PTT ACTIVATED (test code = APTT) 39.7 SECONDS 27.2-37.9 H BASIC METABOLIC [id number] 07:24:00* Test Item Value Reference Range Interpretation Comme nts SODIUM (test code = NA) 142 MMOL/L 137-145 N POTASSIUM (test code = K) 4.3 MMOL/L 3.5-5.1 N CHLORIDE (test code = CL) 107 MMOL/L 98-107 N CARBON DIOXIDE (test code = CO2) 23 MMOL/L 22-30 N GLUCOSE (test code = GLU) 118 MG/DL 74-106 H BLOOD UREA NITROGEN (test code = BUN) 25 MG/DL 7-17 H GLOMERULAR FILTRATION RATE (test code = GFR) > 60 The Glomerular Filtration Rate is a calculated parameterbased on serum Creatinine, patient age and sex. GFR valuesless than 60 mL/min/1.73 square meters are indicative ofChronic Kidney Disease. Values less than 15 mL/min/1.73square meters indicate Kidney failure. The calculation forGFR is based on the CKD-EPI (2020) calculation. This formulais race indifferent and is the recommended formula for GFRby the National Kidney Foundation for Adults.The GFR will not calculate if the sex is unknown or if thepatient's age is <18 years. CREATININE (test code = CREAT) 0.90 MG/DL 0.52-1.04 N CALCIUM (test code = CA) 9.5 MG/DL 8.4-10.2 N [id number] 07:24:00* Test Item Value Reference Range Interpretation Comme nts MAGNESIUM (test code = MAG) 2.2 MG/DL 1.6-2.3 N CBC W/AUTO [id number] 07:05:00* Test Item Value Reference Range Interpretation Comme nts WHITE BLOOD CELL (test code = WBC) 9.5 K/MM3 3.8-9.8 N RED BLOOD CELL (test code = RBC) 4.84 M/MM3 3.58-4.97 N HEMOGLOBIN (test code = HGB) 14.8 G/DL 11.2-14.9 N HEMATOCRIT (test code = HCT) 44.7 % 33.2-43.5 H MEAN CELL VOLUME (test code = MCV) 92 fL 80.7-99.1 N MEAN CELL HGB (test code = MCH) 30.6 pg 27.0-34.1 N MEAN CELL HGB CONCETRATION (test code = MCHC) 33.1 % 32.2-35.7 N RED CELL DISTRIBUTION WIDTH (test code = RDW) 12.9 % 12.1-15.2 N PLATELET COUNT (test code = PLT) 205 K/MM3 129-368 N MEAN PLATELET VOLUME (test c ode = MPV) 11.1 fl 7.4-10.4 H NEUTROPHIL % (test code = NT%) 70.7 % 43-75 N IMMATURE GRANULOCYTE % (test code = IG%) 0.4 % 0.0-2.0 N LYMPHOCYTE % (test code = LY%) 19.5 % 14-44 N MONOCYTE % (test code = MO%) 7.9 % 4-13 N EOSINOPHIL % (test code = EO%) 1.1 % 0-6 N BASOPHIL % (test code = BA%) 0.4 % 0-2 N NUCLEATED RBC % (test code = NRBC%) 0.0 % 0-1.0 N NEUTROPHIL # (test code = NT#) 6.72 K/mm3 2.0-7.6 N IMMATURE GRANULOCYTE # (test code = IG#) 0.04 x10 3/uL 0-0.03 H LYMPHOCYTE # (test code = LY#) 1.85 K/mm3 1.0-3.8 N MONOCYTE # (test code = MO#) 0.75 K/mm3 0.1-0.8 N EOSINOPHIL # (test code = EO#) 0.10 K/mm3 0.0-0.2 N BASOPHIL # (test code = BA#) 0.04 K/mm3 0.0-0.2 N NUCLEATED RBC # (test code = NRBC#) 0.00 K/mm3 0.0-0.1 N CBC W/AUTO [id number] 06:21:00* Test Item Value Reference Range Interpretation Comme nts WHITE BLOOD CELL (test code = WBC) 9.1 K/MM3 3.8-9.8 N RED BLOOD CELL (test code = RBC) 4.98 M/MM3 3.58-4.97 H HEMOGLOBIN (test code = HGB) 15.1 G/DL 11.2-14.9 H HEMATOCRIT (test code = HCT) 47.3 % 33.2-43.5 H MEAN CELL VOLUME (test code = MCV) 95 fL 80.7-99.1 N MEAN CELL HGB (test code = MCH) 30.3 pg 27.0-34.1 N MEAN CELL HGB CONCETRATION (test code = MCHC) 31.9 % 32.2-35.7 L RED CELL DISTRIBUTION WIDTH (test code = RDW) 12.9 % 12.1-15.2 N PLATELET COUNT (test code = PLT) 188 K/MM3 129-368 N MEAN PLATELET VOLUME (test c ode = MPV) 12.0 fl 7.4-10.4 H NEUTROPHIL % (test code = NT%) 59.2 % 43-75 N IMMATURE GRANULOCYTE % (test code = IG%) 0.6 % 0.0-2.0 N LYMPHOCYTE % (test code = LY%) 27.7 % 14-44 N MONOCYTE % (test code = MO%) 10.5 % 4-13 N EOSINOPHIL % (test code = EO%) 1.4 % 0-6 N BASOPHIL % (test code = BA%) 0.6 % 0-2 N NUCLEATED RBC % (test code = NRBC%) 0.0 % 0-1.0 N NEUTROPHIL # (test code = NT#) 5.39 K/mm3 2.0-7.6 N IMMATURE GRANULOCYTE # (test code = IG#) 0.05 x10 3/uL 0-0.03 H LYMPHOCYTE # (test code = LY#) 2.52 K/mm3 1.0-3.8 N MONOCYTE # (test code = MO#) 0.95 K/mm3 0.1-0.8 H EOSINOPHIL # (test code = EO#) 0.13 K/mm3 0.0-0.2 N BASOPHIL # (test code = BA#) 0.05 K/mm3 0.0-0.2 N NUCLEATED RBC # (test code = NRBC#) 0.00 K/mm3 0.0-0.1 N BASIC METABOLIC [id number] 03:17:00* Test Item Value Reference Range Interpretation Comme nts SODIUM (test code = NA) 142 MMOL/L 137-145 N POTASSIUM (test code = K) 4.1 MMOL/L 3.5-5.1 N CHLORIDE (test code = CL) 105 MMOL/L 98-107 N CARBON DIOXIDE (test code = CO2) 30 MMOL/L 22-30 ANION GAP (test code = GAP) 11 MMOL/L 14-24 L GLUCOSE (test code = GLU) 110 MG/DL 74-106 H BLOOD UREA NITROGEN (test code = BUN) 22 MG/DL 7-17 H GLOMERULAR FILTRATION RATE (test code = GFR) > 60 The Glomerular Filtration Rate is a calculated parameterbased on serum Creatinine, patient age and sex. GFR valuesless than 60 mL/min/1.73 square meters are indicative ofChronic Kidney Disease. Values less than 15 mL/min/1.73square meters indicate Kidney failure. The calculation forGFR is based on the CKD-EPI (202) calculation. This formulais race indifferent and is the recommended formula for GFRby the National Kidney Foundation for Adults.The GFR will not calculate if the sex is unknown or if thepatient's age is <18 years. CREATININE (test code = CREAT) 0.80 MG/DL 0.52-1.04 N CALCIUM (test code = CA) 8.9 MG/DL 8.4-10.2 N CBC W/AUTO [id number] 03:02:00* Test Item Value Reference Range Interpretation Comme nts WHITE BLOOD CELL (test code = WBC) 11.0 K/MM3 3.8-9.8 H RED BLOOD CELL (test code = RBC) 4.92 M/MM3 3.58-4.97 N HEMOGLOBIN (test code = HGB) 14.8 G/DL 11.2-14.9 N HEMATOCRIT (test code = HCT) 46.8 % 33.2-43.5 H MEAN CELL VOLUME (test code = MCV) 95 fL 80.7-99.1 N MEAN CELL HGB (test code = MCH) 30.1 pg 27.0-34.1 N MEAN CELL HGB CONCETRATION (test code = MCHC) 31.6 % 32.2-35.7 L RED CELL DISTRIBUTION WIDTH (test code = RDW) 13.0 % 12.1-15.2 N PLATELET COUNT (test code = PLT) 187 K/MM3 129-368 N MEAN PLATELET VOLUME (test c ode = MPV) 11.1 fl 7.4-10.4 H NEUTROPHIL % (test code = NT%) 68.1 % 43-75 N IMMATURE GRANULOCYTE % (test code = IG%) 0.5 % 0.0-2.0 N LYMPHOCYTE % (test code = LY%) 21.5 % 14-44 N MONOCYTE % (test code = MO%) 8.6 % 4-13 N EOSINOPHIL % (test code = EO%) 0.8 % 0-6 N BASOPHIL % (test code = BA%) 0.5 % 0-2 N NUCLEATED RBC % (test code = NRBC%) 0.0 % 0-1.0 N NEUTROPHIL # (test code = NT#) 7.52 K/mm3 2.0-7.6 N IMMATURE GRANULOCYTE # (test code = IG#) 0.06 x10 3/uL 0-0.03 H LYMPHOCYTE # (test code = LY#) 2.37 K/mm3 1.0-3.8 N MONOCYTE # (test code = MO#) 0.95 K/mm3 0.1-0.8 H EOSINOPHIL # (test code = EO#) 0.09 K/mm3 0.0-0.2 N BASOPHIL # (test code = BA#) 0.05 K/mm3 0.0-0.2 N NUCLEATED RBC # (test code = NRBC#) 0.00 K/mm3 0.0-0.1 N BASIC METABOLIC [id number] 16:12:00* Test Item Value Reference Range Interpretation Comme nts SODIUM (test code = NA) 137 MMOL/L 137-145 N POTASSIUM (test code = K) 4.8 MMOL/L 3.5-5.1 N CHLORIDE (test code = CL) 106 MMOL/L 98-107 N CARBON DIOXIDE (test code = CO2) 26 MMOL/L 22-30 N ANION GAP (test code = GAP) 10 MMOL/L 14-24 L GLUCOSE (test code = GLU) 132 MG/DL 74-106 H BLOOD UREA NITROGEN (test code = BUN) 19 MG/DL 7-17 H GLOMERULAR FILTRATION RATE (test code = GFR) > 60 The Glomerular Filtration Rate is a calculated parameterbased on serum Creatinine, patient age and sex. GFR valuesless than 60 mL/min/1.73 square meters are indicative ofChronic Kidney Disease. Values less than 15 mL/min/1.73square meters indicate Kidney failure. The calculation forGFR is based on the CKD-EPI (2020) calculation. This formulais race indifferent and is the recommended formula for GFRby the National Kidney Foundation for Adults.The GFR will not calculate if the sex is unknown or if thepatient's age is <18 years. CREATININE (test code = CREAT) 0.80 MG/DL 0.52-1.04 N CALCIUM (test code = CA) 9.2 MG/DL 8.4-10.2 N HEPATIC FUNCTION [id number] 16:12:00* Test Item Value Reference Range Interpretation Comme nts TOTAL PROTEIN (test code = PROT) 7.6 G/DL 6.3-8.2 N Ortho Clinical D iagnostic has made us aware of newinformation regarding the potential interference ofEltrombopag (a bone marrow stimulant used to treatthrombocytonmenia and aplastic anemia) with specific assayson the Fifteen Reasonss 5600 of which Total Protein is one of thoseassays performed in our lab.Interference testing performed at Ortho determined thatEltrombopag does interfere with Vitros Total Protein asfollowsEltrombopag Interference for Vitros Product Total Protein: Eltrombopag Max Observed Avg. BiasConcentration Concentration Concentration 2.5 mg/dl 6.0 g/dl +0.41 +0.34 3.5 mg/dl 6.0 g/dl +0.50 +0.45 5 mg/dl 6.0 g/dl +0.73 +0.65 2.5 mg/dl 8.0 g/dl +0.44 +0.41 3.5 mg/dl 8.0 g/dl +0.55 +0.52 5 mg/dl 8.0 g/dl +0.86 +0.77 ALBUMIN (test code = ALB) 4.2 G/DL 3.5-5.0 N BILIRUBIN TOTAL (test code = BILT) 0.7 MG/DL 0.2-1.3 N Eltrombopag Inte rference for Vitros Product TBil, BuBc: Assay Eltrombopag Analyte/ Max Observed Avg. Bias Concentration Concentration Concentration TBil 7mg/dl TBil/ 1.2mg/dl +0.23mg.dl +0.20mg/dlBuBc 3.5mg/dl Bu/0.8mg/dl +0.25mg/dl +0.24mg/dlBuBc 7 mg/dl Bu/14.2mg/dl +0.38mg/dl +0.25mg/dlBuBc 5mg/dl Bc/0mg/dl +0.25mg/dl +0.15mg/dlBuBc 3.5mg/dl Bc/2.8mg/dl +0.25mg/dl +0.23mg/dl BILIRUBIN DIRECT (test code = BILD) 0.0 MG/DL 0.0-0.3 N Eltrombopag Inte rference for Vitros Product TBil, BuBc: Assay Eltrombopag Analyte/ Max Observed Avg. Bias Concentration Concentration Concentration TBil 7mg/dl TBil/ 1.2mg/dl +0.23mg.dl +0.20mg/dlBuBc 3.5mg/dl Bu/0.8mg/dl +0.25mg/dl +0.24mg/dlBuBc 7 mg/dl Bu/14.2mg/dl +0.38mg/dl +0.25mg/dlBuBc 5mg/dl Bc/0mg/dl +0.25mg/dl +0.15mg/dlBuBc 3.5mg/dl Bc/2.8mg/dl +0.25mg/dl +0.23mg/dl SGOT/AST (test code = AST) 46 UNITS/L 14-36 H SGPT/ALT (test code = ALT) 48 UNITS/L 0-34 H ALKALINE PHOSPHATASE (test code = ALKP) 83 UNITS/L 38-126 N [id number] 16:12:00* Test Item Value Reference Range Interpretation Comme nts LIPASE (test code = LIP) 52 UNITS/L 23-300 N [id number] 16:12:00* Test Item Value Reference Range Interpretation Comme nts MAGNESIUM (test code = MAG) 2.1 MG/DL 1.6-2.3 N NT PRO-BRAIN NATRIURETIC [id number] 16:12:00* Test Item Value Reference Range Interpretation Comme nts NT PRO-BRAIN NATRIURETIC PEPTI (test code = PROBNP) 1140.0 pg/mL INTERPRETATION O F RESULTS Results of this test should be used in accordance with the appropriate clinical guidelines and in conjunction with clinical presentation and other diagnostic tests. Clinical guidelines recommend using natriuretic peptides in both Emergency Department (ED) and outpatient settings for diagnosis or exclusion of heart failure (HF). The performance of the VITROS NT-proBNP II test was evaluated separately in each of these settings using published age-independent and age-dependent cutoffs. EMERGENCY DEPARTMENT SETTINGS/INPATIENT: For patients presenting to the ED settings with acute or worsening dyspnea and clinical suspicion of HF, the VITROS NT-proBNP II test results should be interpreted as indicated in the table below. NT-pro BNP II Test Age Group Interpretation of Results Results (pg/mL) <300 All Negative: Heart Failure Unlikely -->=300 to <450 22-<50 [place]: Result >=300 to <900 50-<75 Indeterminate >=300 to <1800 >=75 - Consider other causes of NT-proBNP elevation ---------------->=450 22-<50 >=900 50-<75 Positive: Heart Failure likely >=1800 >=75 OUTPAT IENT SETTINGS: In the outpatient settings, the optimal use of natriuretic peptides is to exclude HF. Therefore, a lower rule-out cutoff which increases sensitivity and negative predictive value is needed, as patients can present with limited, less acute HF symptoms. For ambulatory patients presenting to outpatient facilities with clinical suspicion of HF not previously diagnosed and at least one sign, symptom or risk factor for HF, the VITROSNT-proBNP II test results should be interpreted as indicatedin the table below. NT-pro BNP II Test Age Group Interpretation of Results Results (pg/mL) <125 All Negative: Heart Failure Unlikely ---------------->=125 All Consider Heart Failure as well as other causes* of NT-proBNP elevation. [id number] 16:12:00* Test Item Value Reference Range Interpretation Comme [facility] TROPONIN-I (test code = TROPI) < 0.012 NG/ML 0.012-0.033 L PROTHROMBIN [id number] 15:49:00* Test Item Value Reference Range Interpretation Comme [facility] PROTHROMBIN TIME PATIENT (test code = PTP) 14.7 SECONDS 10.1-12.6 H INTERNATIONAL NORMAL RATIO (test code = INR) 1.3 0.86-1.14 H The INR is to be used only for monitoring oral anticoagulanttherap y. INDICATION INR VALUE -------1. Prophylaxis, deep venous thrombosis, including high risk surgery. 2.0 - 3.0 2. Prophylaxis, deep venous thrombosis, hip surgery, treatment for deep venous thrombosis or pulmonary prevention of systemic embolism in patients with valvular heart disease, atrial fibrillation, tissue heart valve, or acute myocardial infarction. 2.0 - 3.0 3. Mechanical prosthesis heart valves, recurrent systemic embolism. 3.0 - 4.5 PTT [id number] 15:49:00* Test Item Value Reference Range Interpretation [facility] P[facility] ACTIVATED (test code = APTT) 33.2 SECONDS 27.2-37.9 N - XR CHEST [id number] 15:38:00 [facility] 1950 Sex: F Patient Name: DERRICK LOOMIS Unit No: [id number] EXAMS: CPT CODE: [id number] XR CHEST 1V 87939 EXAMINATION: - XR CHEST 1V. LOCATION: B2. HISTORY: Chest Pain. COMPARISON: Radiograph dated 03/14/2023. TECHNIQUE: Single AP view of the chest was obtained. FINDINGS: The heart is normal in size. Linear bibasilar opacities are noted. No acute osseous abnormality is identified. IMPRESSION: Mild bibasilar atelectasis . at 1538 Reported and signed by: Shell Botello MD CC: [facility] Roland Technologist: Celio Leon RT Transcrpt Date/Tm/Trnsp: 07/14/2023 (1538) [id number] Orig Print D/T: S: 07/14/2023 (0894) [facility] NAME: DERRICK LOOMIS [id number] [address] PHYS: John Snowden [employer] [place] [address] : 1950 AGE: 72 SEX: F [facility] #: [phone] EXAM DATE: 07/14/2023 STATUS: REG ER FAX #: [phone] RADIOLOGY NO: PAGE 1 Signed ReportC W/O [id number] 15:36:00* Test Item Value Reference Range Interpretation Comme nts WHITE BLOOD CELL (test code = WBC) 12.7 K/MM3 3.8-9.8 H RED BLOOD CELL (test code = RBC) 5.26 M/MM3 3.58-4.97 H HEMOGLOBIN (test code = HGB) 16.0 G/DL 11.2-14.9 H HEMATOCRIT (test code = HCT) 49.0 % 33.2-43.5 H MEAN CELL VOLUME (test code = MCV) 93 fL 80.7-99.1 N MEAN CELL HGB (test code = MCH) 30.4 pg 27.0-34.1 N MEAN CELL HGB CONCETRATION (test code = MCHC) 32.7 % 32.2-35.7 N RED CELL DISTRIBUTION WIDTH (test code = RDW) 13.0 % 12.1-15.2 N PLATELET COUNT (test code = PLT) 231 K/MM3 129-368 N NEUTROPHIL # (test code = NT#) 10.76 K/mm3 2.0-7.6 H IMMATURE GRANULOCYTE # (test code = IG#) 0.08 x10 3/uL 0-0.03 H LYMPHOCYTE # (test code = LY#) 1.12 K/mm3 1.0-3.8 N MONOCYTE # (test code = MO#) 0.61 K/mm3 0.1-0.8 N EOSINOPHIL # (test code = EO#) 0.04 K/mm3 0.0-0.2 N BASOPHIL # (test code = BA#) 0.06 K/mm3 0.0-0.2 N NUCLEATED RBC # (test code = NRBC#) 0.00 K/mm3 0.0-0.1 N BASIC METABOLIC [id number] 14:13:00* Test Item Value Reference Range Interpretation Comme nts SODIUM (test code = NA) 144 mEq/L 134-147 N POTASSIUM (test code = K) 4.6 mEq/L 3.4-5.0 N CHLORIDE (test code = CL) 108 mEq/L 100-108 N CARBON DIOXIDE (test code = CO2) 32 mEq/l 21-33 N ANION GAP (test code = GAP) 9 0-20 N GLUCOSE (test code = GLU) 101 mg/dL 70-110 N BLOOD UREA NITROGEN (test code = BUN) 13 mg/dL 7-18 N GLOMERULAR FILTRATION RATE (test code = GFR) 79.2 70-80 N The Glomerular Filtration Rate is a calculated parameterbased on serum Creatinine, patient age and sex. GFR valuesless than 60 mL/min/1.73 square meters are indicative ofChronic Kidney Disease. Values less than 15 mL/min/1.73square meters indicate Kidney failure. The calculation forGFR is based on the CKD-EPI (2020) calculation. This formulais race indifferent and is the recommended formula for GFRby the National Kidney Foundation for Adults.The GFR will not calculate if the sex is unknown or if thepatient's age is <18 years. CREATININE (test code = CREAT) 0.8 mg/dL 0.6-1.3 N CALCIUM (test code = CA) 8.8 mg/dL 8.0-10.5 N PROTHROMBIN [id number] 14:07:00* Test Item Value Reference Range Interpretation Comme nts PROTHROMBIN TIME PATIENT (test code = PTP) 14.5 SECONDS 9.3-12.9 H INTERNATIONAL NORMAL RATIO (test code = INR) 1.3 0.8-1.2 H TARGET INR BY INDICATION Indication INR1. Prophylaxis of venous thrombosis 2.0 - 3.0 (orthopedic surgery), Prophylaxis of venous thrombosis (other than high-risk surgery), Treatment of Deep Vein Thrombosis/Pulmonary Embolism, Prevention of systemic embolism - Tissue heart valves, Acute Myocardial Infarction (to prevent systemic embolism), Valvular heart disease, Atrial Fibrillation, Bileaflet mechanical valve in aortic position.2. Mechanical prosthetic valves (high risk), 2.5 - 3.5 Presence of Lupus Anticoagulant or Antiphospholipid Antibodies, Prevention of systemic embolism - Acute Myocardial Infarction (to prevent recurrent infarct). CBC W/AUTO [id number] 13:57:00* Test Item Value Reference Range Interpretation Comme nts WHITE BLOOD CELL (test code = WBC) 13.4 x10 3/uL 4.5-11.0 H RED BLOOD CELL (test code = RBC) 5.15 x10 6/uL 3.54-5.02 H HEMOGLOBIN (test code = HGB) 15.4 g/dL 11.0-15.0 H HEMATOCRIT (test code = HCT) 49.0 % 33.0-45.0 H MEAN CELL VOLUME (test code = MCV) 95.1 fL 81.0-99.0 N MEAN CELL HGB (test code = MCH) 29.9 pg 27.0-33.0 N MEAN CELL HGB CONCETRATION (test code = MCHC) 31.4 g/dL 33.0-37.0 L RED CELL DISTRIBUTION WIDTH CV (test code = RDW) 12.7 % 11.5-14.5 N RED CELL DISTRIBUTION WIDTH SD (test code = RDW-SD) 44.3 fL 37.0-54.0 N PLATELET COUNT (test code = PLT) 228 x10 3/uL 150-400 N MEAN PLATELET VOLUME (test code = MPV) 11.3 fL 7.0-9.0 H NEUTROPHIL % (test code = NT%) 82.6 % 56.0-77.0 H IMMATURE GRANULOCYTE % (test code = IG%) 0.7 % 0.0-2.0 N LYMPHOCYTE % (test code = LY%) 10.1 % 14.0-32.0 L MONOCYTE % (test code = MO%) 6.0 % 4.8-9.0 N EOSINOPHIL % (test code = EO%) 0.2 % 0.3-3.7 L BASOPHIL % (test code = BA%) 0.4 % 0.0-2.0 N NUCLEATED RBC % (test code = NRBC%) 0.0 % 0-0 N NEUTROPHIL # (test code = NT#) 11.07 x10 3/uL 2.0-7.6 H IMMATURE GRANULOCYTE # (test code = IG#) 0.09 x10 3/uL 0.00-0.03 H LYMPHOCYTE # (test code = LY#) 1.35 x10 3/uL 1.0-3.8 N MONOCYTE # (test code = MO#) 0.80 x10 3/uL 0.1-0.8 N EOSINOPHIL # (test code = EO#) 0.03 x10 3/uL 0.0-0.2 N BASOPHIL # (test code = BA#) 0.06 x10 3/uL 0.0-0.2 N NUCLEATED RBC # (test code = NRBC#) 0.00 x10 3/uL 0.0-0.1 N MANUAL DIFF REQUIRED (test code = MDIFF) NO - XR CHEST 2 [id number] 00:00:00 [facility] : 1950 Sex: F FAX: Emily Bradley III [phone] [place]: St: PRE FAX: Dave Monroe MD [phone] ----- Name: DERRICK LOOMIS : 1950 Age/S: 72/F [address] [place] [address] Unit #: [id number] Loc: [place] [address] Phys: Dave Lemon MD Acct: [id number] Dis Date: Status: PRE SDC PHONE #: [phone] Exam Date: 03/14/2023 1311 FAX #: [phone] Reason: PREOP EXAMS: CPT CODE: [id number] XR CHEST 2 V 14095 PROCEDURE INFORMATION: Exam: XR Chest Exam date and time: 03/14/2023 1:10 PM Age: 72 years old Clinical indication: Pre-operative exam; Cardiovascular screening and respiratory screening exam; Additional info: Preop TECHNIQUE: Imaging protocol: Radiologic exam of the chest. Views: 2 views. PA and Lateral COMPARISON: CR XR CHEST 1V 10/15/2022 5:11 PM FINDINGS: Lungs: There is emphysematous change in the upper lobes with minimal bibasilar subsegmental atelectasis. Pleural spaces: Unremarkable. No pleural effusion. No pneumothorax. Heart/Mediastinum: The heart size is normal. The pulmonary vasculature is normal. The mediastinal contour is normal. The trachea is midline. Bones/joints: No acute abnormality seen. IMPRESSION: Pulmonary emphysema with bibasilar subsegmental atelectasis. at 9931 Reported and signed by: Iron Cuevas M.D. CC: Emily Hernandez III, MD; Dave Lemon MD Technologist: RT Carola(R) Trnscrd Date/Time/By: 03/14/2023 (2544) : By: SayO Orig Print D/T: S: 03/14/2023 (6837) PAGE 1 Signed [id number] 06:54:00* Test Item Value Reference Range Interpretation Comme nts PHOSPHOROUS (test code = PHOS) 3.8 MG/DL 2.5-4.5 N THYROID STIMULATING [id number] 06:54:00* Test Item Value Reference Range Interpretation Comme nts THYROID STIMULATING HORMONE (test code = TSH) 2.970 MIU/L 0.465-4.68 N Please be aware that bias results for TSH may occur forpatient who are taking Biotin supplements. - XR CHEST [id number] 17:30:00 [facility] : 1950 Sex: F Patient Name: DERRICK LOOMIS Unit No: [id number] EXAMS: CPT CODE: [id number] XR CHEST 1V 55620 EXAM: CHEST ONE VIEW INDICATION: Chest pain, shortness of breath LOCATION: B2 COMPARISON: None available TECHNIQUE: AP view of the chest FINDINGS: The heart size is enlarged. There are diffuse congestive changes bilaterally. No pneumothorax or pleural effusion is identified. The osseous structures are normal. IMPRESSION: Cardiomegaly with diffuse congestive changes bilaterally. at 1730 Reported and signed by: Ava Ferraro MD CC: Adithya Ruiz DO Technologist: Kaitlin Yuan RT(R) Transcrpt Date/Tm/Trnsp: 10/15/2022 (1730) 16 Orig PrintD/T: S: 10/15/2022 (6252) [facility] NAME: DERRICK LOOMIS [address] [address] PHYS: Adithya Vila DO [address] [address] : 1950 AGE: 72 SEX: F LOC: [facility] PHONE #: [phone] EXAM DATE: 10/15/2022 STATUS: ADM IN FAX #: [phone] RADIOLOGY NO: PAGE 1 Signed Report COMPREHENSIVE METABOLIC [id number] 17:09:00* Test Item Value Reference Range Interpretation Comme nts SODIUM (test code = NA) 142 MMOL/L 137-145 N POTASSIUM (test code = K) 4.3 MMOL/L 3.5-5.1 N CHLORIDE (test code = CL) 109 MMOL/L 98-107 H CARBON DIOXIDE (test code = CO2) 28 MMOL/L 22-30 N GLUCOSE (test code = GLU) 92 MG/DL 74-106 N BLOOD UREA NITROGEN (test code = BUN) 20 MG/DL 7-17 H GLOMERULAR FILTRATION RATE (test code = GFR) > 60 The Glomerular Filtration Rate is a calculated parameterbased on serum Creatinine, patient age and sex. GFR valuesless than 60 mL/min/1.73 square meters are indicative ofChronic Kidney Disease. Values less than 15 mL/min/1.73square meters indicate Kidney failure. The calculation forGFR is based on the CKD-EPI (2020) calculation. This formulais race indifferent and is the recommended formula for GFRby the National Kidney Foundation for Adults.The GFR will not calculate if the sex is unknown or if thepatient's age is <18 years. CREATININE (test code = CREAT) 0.90 MG/DL 0.52-1.04 N TOTAL PROTEIN (test code = PROT) 7.4 G/DL 6.3-8.2 N Dialoggy Clinical D Formisimo has made us aware of newinformation regarding the potential interference ofEltrombopag (a bone marrow stimulant used to treatthrombocytonmenia and aplastic anemia) with specific assayson the Vitros 5600 of which Total Protein is one of thoseassays performed in our lab.Interference testing performed at Ortho determined thatEltrombopag does interfere with Vitros Total Protein asfollowsEltrombopag Interference for Vitros Product Total Protein: Eltrombopag Max Observed Avg. BiasConcentration Concentration Concentration 2.5 mg/dl 6.0 g/dl +0.41 +0.34 3.5 mg/dl 6.0 g/dl +0.50 +0.45 5 mg/dl 6.0 g/dl +0.73 +0.65 2.5 mg/dl 8.0 g/dl +0.44 +0.41 3.5 mg/dl 8.0 g/dl +0.55 +0.52 5 mg/dl 8.0 g/dl +0.86 +0.77 ALBUMIN (test code = ALB) 4.1 G/DL 3.5-5.0 N CALCIUM (test code = CA) 9.3 MG/DL 8.4-10.2 N BILIRUBIN TOTAL (test code = BILT) 0.8 MG/DL 0.2-1.3 N Eltrombopag Inte rference for Vitros Product TBil, BuBc: Assay Eltrombopag Analyte/ Max Observed Avg. Bias Concentration Concentration Concentration TBil 7mg/dl TBil/ 1.2mg/dl +0.23mg.dl +0.20mg/dlBuBc 3.5mg/dl Bu/0.8mg/dl +0.25mg/dl +0.24mg/dlBuBc 7 mg/dl Bu/14.2mg/dl +0.38mg/dl +0.25mg/dlBuBc 5mg/dl Bc/0mg/dl +0.25mg/dl +0.15mg/dlBuBc 3.5mg/dl Bc/2.8mg/dl +0.25mg/dl +0.23mg/dl SGOT/AST (test code = AST) 28 UNITS/L 14-36 N SGPT/ALT (test code = ALT) 32 UNITS/L 0-34 N ALKALINE PHOSPHATASE (test code = ALKP) 87 UNITS/L 38-126 N [id number] 17:09:00* Test Item Value Reference Range Interpretation Comme nts MAGNESIUM (test code = MAG) 2.1 MG/DL 1.6-2.3 N [id number] 17:09:00* Test Item Value Reference Range Interpretation Comme nts TROPONIN-I (test code = TROPI) 0.013 NG/ML 0.012-0.033 N UA [id number] 16:51:00* Test Item Value Reference Range Interpretation Comme nts UA RBC (test code = RBCU) 5-10 RBC/HPF 0-3 A UA WBC (test code = XWBCU) 0-3 WBC/HPF 0-5 UA EPITHELIAL CELLS (test co de = EPIU) FEW EPI/HPF FEW UA BACTERIA (test code = XBACU) RARE NONE SOURCE OF URINE: STRAIGHT CATHETERURINALYSIS [id number] 16:51:00* Test Item Value Reference Range Interpretation Comme nts UA COLOR (test code = COLU) YELLOW YELLOW UA APPEARANCE (test code = APPU) CLEAR CLEAR UA GLUCOSE DIPSTICK (test code = DGLUU) NORMAL MG/DL NORMAL UA BILIRUBIN DIPSTICK (test code = BILU) NEGATIVE MG/DL NEGATIVE UA KETONE DIPSTICK (test code = KETU) NEGATIVE MG/DL NEGATIVE UA SPECIFIC GRAVITY (test code = SGU) 1.015 1.003-1.030 N UA BLOOD DIPSTICK (test code = TATIANA) 25 Saw/mm3 NEGATIVE A UA PH DIPSTICK (test code = AGNES) 6.0 5.0-9.0 N UA PROTEIN DIPSTICK (test code = PROU) NEGATIVE MG/DL NEGATIVE UA UROBILINIOGEN DIPSTICK (test code = URO) NORMAL MG/DL NORMAL UA NITRITE DIPSTICK (test code = TAI) NEGATIVE NEGATIVE UA LEUKOCYTE ESTERASE DIPSTICK (test code = LEUU) NEGATIVE /mm3 NEGATIVE UA CULTURE NEEDED? (test code = UACULT) NO, WBC>10 & EPI>25 Criteria Culture Chk SOURCE OF URINE: STRAIGHT CATHETERCBC W/AUTO [id number] 16:28:00* Test Item Value Reference Range Interpretation Comme nts WHITE BLOOD CELL (test code = WBC) 11.6 K/MM3 3.8-9.8 H RED BLOOD CELL (test code = RBC) 5.25 M/MM3 3.58-4.97 H HEMOGLOBIN (test code = HGB) 15.8 G/DL 11.2-14.9 H HEMATOCRIT (test code = HCT) 47.6 % 33.2-43.5 H MEAN CELL VOLUME (test code = MCV) 91 fL 80.7-99.1 N MEAN CELL HGB (test code = MCH) 30.1 pg 27.0-34.1 N MEAN CELL HGB CONCETRATION (test code = MCHC) 33.2 % 32.2-35.7 N RED CELL DISTRIBUTION WIDTH (test code = RDW) 13.1 % 12.1-15.2 N PLATELET COUNT (test code = PLT) 255 K/MM3 129-368 N MEAN PLATELET VOLUME (test c ode = MPV) 10.8 fl 7.4-10.4 H NEUTROPHIL % (test code = NT%) 70.6 % 43-75 N IMMATURE GRANULOCYTE % (test code = IG%) 0.6 % 0.0-2.0 N LYMPHOCYTE % (test code = LY%) 20.8 % 14-44 N MONOCYTE % (test code = MO%) 6.6 % 4-13 N EOSINOPHIL % (test code = EO%) 1.1 % 0-6 N BASOPHIL % (test code = BA%) 0.3 % 0-2 N NUCLEATED RBC % (test code = NRBC%) 0.0 % 0-1.0 N NEUTROPHIL # (test code = NT#) 8.15 K/mm3 2.0-7.6 H IMMATURE GRANULOCYTE # (test code = IG#) 0.07 x10 3/uL 0-0.03 H LYMPHOCYTE # (test code = LY#) 2.41 K/mm3 1.0-3.8 N MONOCYTE # (test code = MO#) 0.76 K/mm3 0.1-0.8 N EOSINOPHIL # (test code = EO#) 0.13 K/mm3 0.0-0.2 N BASOPHIL # (test code = BA#) 0.04 K/mm3 0.0-0.2 N NUCLEATED RBC # (test code = NRBC#) 0.00 K/mm3 0.0-[address] LUNG [id number] 19:47:10Multiple lung nodules including calcified nodules. Lung RADSCategory 2-S. Recommendation: Continue with annual screening Category 2 : Negative screen - nodules with benign appearance or behavior -cont inue annual screening in 12 months ?S modifier : COPD with dilated central pulmonary arteries, suggestive ofpulmonary arterial hypertension. PROCEDURE: CT CHEST NON CONTRAST ? LUNG CANCER SCREENING. CLINICAL INDICATION: Lung nodule, <1cm, mod-high risk COMPARISON: None. TECHNIQUE: Low dose helical CT was acquired from lung apices to bases wasobtained and reconstructed at 1 mm, without intravenous contrast. MIP andcoronal & sagittal MPR images were generated and reviewed. (DFOV = 44.4cm) FINDINGS: Lower neck/thyroid: Unremarkable. Lungs: Obstructive lung disease noted with numerous panacinar typeemphysematous bulla scattered throughout both lungs with the upper lobepredominate. Minimal fibrosis is seen in the right lower lung and leftlingula segment. Following lung nodules are visualized: Slightly irregular shaped 8mm nodule in the posterior left lower lung(8:71) with probable faint calcification in it.2. Irregular shaped 5 mm pleural-based nodule in lateral left lower lung(8:60).4 mm nodule in left lower lung (8:58)2 mm nodule in the right lower lung (8:16).2 mm nodule right lower lung (8:45)2 mm calcified nodule in anterior right lung) 8:42).Irregular shaped 5 mm nodule inposterior right upper lung (8:33).2 mm nodule lateral right upper lung (8:16).3 mm nodule in right middle lobe (8:67)6 mm nodule anterior right upper lobe (8:47)2 mm nodule in lateral right lower lung (8:47)Questionable 3 mm nodule versus vessel bifurcation (8:59). Central airway: Unremarkable. Pleura: No pleural effusion, thickening or pneumothorax. Thoracic aorta and great vessels: Bilateral superior vena cava noted.Normal in diameter. Mild atherosclerotic disease affects the visualizedaorta.Pulmonary arteries: Dilated central pulmonary arteries. Main pulmonaryartery 3.6 cm. Heart and pericardium: No detectable coronary arterial calcification.Unremarkable cardiac morphology and pericardium. Lymph nodes: No enlarged thoracic lymph nodes. Mediastinum: Unremarkable. Thoracic spine and chest wall: No aggressive bone lesions or compressiondeformity in the thoracic vertebral bodies. Midthoracic dextroscoliosis.Degenerative disc disease with disc osteophyte complex encroaching into thespinal canal at T9-T10 level. Other Lines/Tubes/Devices/Hardware: None Visualized upper abdomen: Unremar kable. [facility], Radiant Results Inft User - 10/06/2019 1:48 PM CSTPROCEDURE: CT CHEST NON CONTRAST ? LUNG CANCER SCREENING.CLINICAL INDICATION: Lung nodule, <1cm, mod-high risk COMPARISON: None.TECHNIQUE: Low dose helical CT was acquired from lung apices to bases wasob tained and reconstructed at 1 mm, without intravenous contrast. MIP andcoronal & sagittal MPR images were generated and reviewed. (DFOV = 44.4cm)FINDINGS:Lower neck/thyroid: Unremarkable.Lungs: Obstructive lung disease noted with numerous panacinar typeemphysematous bulla scattered throughout both lungs with the upper lobepredominate. Minimal fibrosis is seen in the right lower lung and leftli ngula segment.Following lung nodules are visualized:Slightly irregular shaped 8mm nodule in the posterior left lower lung(8:71) with probable faint calcification in it.2. Irregular shaped 5 mm pleural-based nodule in lateral left lower lung(8:60).4 mm nodule in left lower lung (8:58)2 mm nodule in the right lower lung (8:16).2 mm nodule right lower lung (8:45)2 mm calcified nodule in anterior right lung) 8:42).Irregular shaped 5 mm nodule in posterior right upper lung (8:33).2 mm nodule lateralright upper lung (8:16).3 mm nodule in right middle lobe (8:67)6 mm nodule anterior right upper lobe (8:47)2 mm nodule in lateral right lower lung (8:47)Questionable 3 mm nodule versus vessel bifurcation (8:59).Central airway: Unremarkable.Pleura: No pleural effusion, thickening or pneumothorax.Thoracic aorta and great vessels: Bilateral superior vena cava noted.Normal in diameter. Mild atherosclerotic disease affects the visualizedaorta.Pulmonary arteries: Dilated central pulmonary arteries. Main pulmonaryartery 3.6 cm.Heart and pericardium: No detectable coronary arterial calcification.Unremarkable cardiac morphology and pericardium.Lymph nodes: No enlarged thoracic lymph nodes.Mediastinum: Unremarkable.Thoracic spine and chest wall: No aggressive bone lesions or compressiondeformity inthe thoracic vertebral bodies. Midthoracic dextroscoliosis.Degenerative disc disease with disc osteophyte complex encroaching into thespinal canal at T9-T10 level.Other Lines/Tubes/Devices/Hardware: NoneVisualized upper abdomen: Unremarkable. IMPRESSIONMultiple lung nodules including calcified nodules. Lung RADSCategory 2-S. Recommendation: Continue with annual screeningCategory 2 : Negative screen - nodules with benign appearance or behavior -continue annual screening in 12 months S modifier : COPD with dilated central pulmonary arteries, suggestive ofpulmonary arterial hypertension.[facility] ([facility])Abdomen 1 View (KUB) Notes Date/Time Note Provider Source 2023-09-03 10:50:00 [id number] [id number]/PWhBeh 6Mx3bUOvkhxkyMV2zH8M215AYPn7004-75-70Z97:50:53405 1-[address] [address] PATIENT NAME: DERRICK LOOMIS ADMIT DATE: 07/14/23ACCOUNT NO: [id number] ROOM NO: Z.344 AGE: 73 REPORT TYPE: DISCHARGE SUMMARY REPORT SEX: F ADMITTING PHYSICIAN:Obi Rubio MD ATTENDING PHYSICIAN:Obi Rubio MD ADMISSION DATE: 07/14/2023 16:57:00DISCHARGE DATE: 07/16/2023 15:22:00 DISCHARGE DIAGNOSES:1. Atrial fibrillation with rapid ventricular response.2. Hypertension.3. Dyslipidemia.4. Coronary artery disease.5. History of kidney stones.6. Chronic obstructive pulmonary disease. INPATIENT CONSULTATIONS: Cardiology, Dave Lemon MD. INPATIENT PROCEDURES: None. DISCHARGE DISPOSITION: Home. DISCHARGE CONDITION: Stable. DISCHARGE VITAL SIGNS: Temperature 98.0, pulse of 90, respiratory rate of 18-20, blood pressure is 133/70, O2 sat 98% on room. LABORATORY DATA: Upon discharge, WBC 5.2, hemoglobin 12.8, hematocrit 41.1, platelets of 114. Sodium 139, potassium 4.7, chloride 108, bicarbonate 21, BUN of 16, creatinine 0.70, glucose of 120. DISCHARGE MEDICATIONS: Please review the medication reconciliation, which has been completed. Total time spent on this discharge is greater than 30 minutes. Dictated By: Obi Rubio MD Date Dictated: 09/03/2023 10:50:44Date Transcribed: 09/03/2023 21:55:39SA/Imtiaz #: [id number] ID: [id number] by Obi Rubio MD On 09/04/2023 12:18:48 PM PATIENT NAME: DERRICK LOOMIS at 1218 PATIENT NAME: DERRICK LOOMIS geuprjc8112-28-61J31:55:00Z.[id number] ilable for patient xpxoQYVZMDRFPTGWOE2529-57-92X94:19:31 [facility] 2023-07-24 13:02:00 [id number] 2b7bjHwauoYkiqZvAAztWnNvb4Nek 5eHR1nAeDgq27HqxNl6A9GDnhq05704-64-24W49:02:74371 1-0055 [place] [address] PATIENT NAME: DERRICK LOOMIS ADMIT DATE: 07/14/23ACCOUNT NO: [id number] ROOM NO: Z.344 AGE: 72 REPORT TYPE: 360 - QUERY RESPONSE DOCUMENT SEX: F ADMITTING PHYSICIAN:Obi Rubio MD ATTENDING PHYSICIAN:Obi Rubio MD Provider Query QUERY TEXT: Condition General 360MD Query related questions should be directed to: [phone] Please clarify cause of abnormal EKG after study (due to STEMI, unspecified, other more appropriate diagnosis) The patient's Clinical Indicators include:Acute chest pain, A Fib with RVR. see admit order"Upon arrival, patient had EKG done. EKG showed a STEMI. Patient was brouth back immediately to main ED. see ED recordAF and abnormal EKG. see cardiology PN 07/16 Options provided:-- Respond - Create new note now-- Dismiss - Not applicable / Not valid-- Dismiss - Clinically unable to determine / Unknown-- Assign to another provider QUERY RESPONSE: Provider was clinically unable to determine a response for this query Query created by: Susan Mcclendon on 07/21/2023 11:56 AM at 1302 PATIENT NAME: DERRICK LOOMIS noteZ.[id number] for patient vlcnKIEASLBLXESGAO4859-48-25N42:03:56 [facility] 2023-07-24 13:01:00 [id number] li1BllY0fiqpJ4XXgwSVddVoQ/n0P nmW18iGNPbtN3Lt5YQKkACbZwPa8913-36-14M59:01:61151 1-0073 [place] [address] PATIENT NAME: DERRICK LOOMIS ADMIT DATE: 07/14/23ACCOUNT NO: [id number] ROOM NO: Z.344 AGE: 72 REPORT TYPE: HISTORY AND PHYSICAL SEX: F ADMITTING PHYSICIAN:Obi Rubio MD ATTENDING PHYSICIAN:Obi Rubio MD ADMISSION DATE: 07/14/2023 16:57:00 CHIEF COMPLAINT: Chest pain and shortness of breath. HISTORY OF PRESENT ILLNESS: This is a 72-year-old female who presents to the hospital with complaints of shortness of breath as well as chest pain. The patient was found to be in AFib with RVR. She was on Eliquis on a daily basis. She started complaining of chest pain about 4 days ago. She was seen by her motor bus driver and then was referred to the hospital to be seen by satellite installer, Dr. Lemon. Apparently, the patient had a scheduled ablation procedure in the coming days. However, prior to that, the patient was noted to be in AFib with RVR. The patient was seen by her primary motor bus driver,Dr. Charles earlier. During my evaluation, the patient remains in AFib with RVR. She was given digoxin. She otherwise remains comfortable. She is chest pain free. ALLERGIES:1. SULFA.3. WELLBUTRIN. PAST MEDICAL HISTORY: Significant for:1. Coronary artery disease with history of a non-ST elevation myocardial infarction.2. Hypertension.3. Hyperlipidemia. PAST SURGICAL HISTORY:1. Hysterectomy.2. Right ankle surgery.3. [place] tooth removal.4. Skin cancer removal of the nose.5. Kidney stone removal. SOCIAL HISTORY: She denies any current tobacco use. Former tobacco use. Denies any alcohol or drug use. OUTPATIENT MEDICATIONS: Reviewed, please review the medication reconciliation. REVIEW OF SYSTEMS: She denies any chest pain, no chest discomfort, no nausea, no vomiting. PATIENT NAME: DERIRCK LOOMIS LABORATORY DATA: Upon admission, sodium is 142, potassium 4.1, chloride 106, bicarbonate 30, BUN of 22, creatinine 0.80, glucose of 110. WBC is 11.0, hemoglobin 14.8, hematocrit 48.8, platelets of 187 with an MCV of 96. PHYSICAL EXAMINATION:VITAL SIGNS: Upon evaluation, temperature is 98.6, pulse of 120, blood /54, O2 saturation 98% on room.GENERAL: In no apparent distress, appears comfortable.NEUROLOGIC: She is alert, awake, and oriented x3.NECK: Supple. No JVD or carotid bruits.CARDIOVASCULAR: Irregularly irregular, S1, and A2YBJEA: Diminished breath sounds with rhonchiABDOMEN: Soft, nontender, nondistended, positive bowel sounds.EXTREMITIES: No clubbing, no cyanosis, no edema. Positive peripheral pulses.SKIN: Intact ADMISSION DIAGNOSES:1. Atrial fibrillation with rapid ventricular response.2. Hypertension.3. Dyslipidemia.4. Coronary artery disease.5. History of kidney stones.6. Chronic obstructive pulmonary disease. PLAN: The patient remains stable at this time. She will continue with the current recommendations as outlined per Cardiology. The patient is to see Dr. Lemon for possible ablation procedure. She had undergone a AIXA cardioversion in October 2022. The patient will continue with her current anticoagulation. I have reconciled all of her medicines. First troponin is noted to be negative. We will continueto monitor her labs. Her metoprolol dose was increased to 50 mg b.i.d. Total time spent on this admission is in excess of 70 minutes. Dictated By: Obi Rubio MD Date Dictated: 07/24/2023 13:01:34Date Transcribed: 07/24/2023 14:42:44SA/Stephanie #: [id number] ID: [id number] by Obi Rubio MD On 07/24/2023 04:25:32 PM at 0425 PATIENT NAME: DERRICK LOOMIS and physical bfvggmtzxkc2397-37-96R59:42:00Z.[id number] VAvailable for patient wqzeCJLGSMXFYBTDOT6471-84-20M66:26:09 [facility] 2023-07-23 08:55:00 [id number] bL3YsIfG5Dq1F5l+B41lH/pL4Z/gu DYmRrk4U0XHkdvOO5FD3KVQff6K6169-88-22Q63:55:24497 0-0021 [place] [id number] PATIENT NAME: DERRICK LOOMIS ADMIT DATE: 07/22/23ACCOUNT NO: [id number] ROOM NO: Z.361 AGE: 72 REPORT TYPE: ELECTROCARDIOGRAM SEX: F ADMITTING PHYSICIAN:Dave Lemon MD ATTENDING PHYSICIAN:Dave Lemon MD Order:[id number] Reason : S/P RFA Test Date/Time Stamp:FriJul 23 2023 08:55:56Blood Pressure : / mmHGVent. Rate : 069 BPM Atrial Rate : 069 BPM P-R Int : 174 ms QRS Dur : 102 ms QT Int : 418 ms P-R-T Axes : 062 000 076 degrees QTc Int : 447 ms Normal sinus rhythmNormal ECGWhen compared with ECG of 22-JUL-2023 06:40,Sinus rhythm has replaced Atrial flutterIncomplete right bundle branch block is no longer presentConfirmed by DEV CHARLES ([id number]) on 07/23/2023 5:14:52 PM Referred By: Dave Lemon Confirmed by:DEV CHARLES at 1714 PATIENT NAME: DERRICK LOOMIS .[id number] AVAvailable for patient sbvxICXQYTCUHWXTEW5309-28-11T44:15:09 [facility] 2023-07-23 06:53:00 [id number]/Nl/X dCqEpeHS+KFXE7IZa+hWsjT+5/hYu gR33s76fcrNaLlNubhmf5rAlYth2171-09-21T53:53:00 [facility]Card[facility] Progress NoteREPORT#:[id number] REPORT STATUS: SignedREPORT INITIALIZATION DATE:07/23/23 TIME: 652 PATIENT: DERRICK LOOMIS UNIT #: [id number]#: [id number] [facility]GE: 72 SEX: F ATTEND: Dave Lemon MDADM AUTHOR: Dave Lemon MDREPT SERVICE DT/TIME: 07/23/23 0653* ALL edits or amendments must be made on the electronic/computer document * SubjectiveChief complaint:Atrial flutterPatient reports:No: chest pain, palpitations, shortness of breath. Objective GeneralVS/I O:Vital Signs: Date Time Temp Pulse Resp B/P B/P Pulse O2 O2 Flow FiO2 Mean Ox Delivery Rate 07/23 0348 97.5 07/23 0302 69 13 100 07/23 0300 62 13 100 07/23 0230 67 14 97 07/23 0200 68 14 97 07/23 0130 68 14 99 07/23 0100 68 14 99 07/23 0030 67 15 99 07/23 0013 97.7 07/23 0000 70 14 96 07/22 2330 72 15 95 07/22 2300 72 14 96 07/22 2230 74 16 97 07/22 2200 77 16 97 07/22 2130 77 18 97 07/22 2115 82 22 116/54 78 98 07/22 2100 84 35 07/22 2030 Nasal 3 cannula 07/22 2030 75 17 98 07/22 2022 97 Nasal 3 32 cannula 07/22 2000 76 21 97 07/22 1930 79 25 98 07/22 1917 97.9 07/22 1900 80 25 92 07/22 1836 76 26 98 07/22 1815 75 19 94/52 70 97 07/22 1807 76 21 97 07/22 1806 74 18 95 07/22 1330 Nasal 3 cannula PATIENT WEIGHT: Weight (lb): Weight (oz): Weight (kg): Medications:Active Meds + DC'd Last 24 HrsAscorbic Acid (ASCORBIC ACID, VIT C) 1,000 MG DAILY PO Calcium Carbonate (CALTRATE 600) 600 MG DAILY PO (CAN) Calcium Carbonate (OSCAL 500MG) 500 MG DAILY PO Losartan Potassium (COZAAR) 50 MG DAILY PO Apixaban (Eliquis) 5 MG BID PO Magnesium Oxide (MAG-OX 400) 400 MG BID PO Metoprolol Tartrate (LOPRESSOR) 50 MG Q12HR PO Atropine Sulfate (ATROPINE SULFATE) 1 MG .STK-MED ONE Z (DC) Calcium Chloride (CALCIUM CHLORIDE) 1 GM .STK-MED ONE Z (DC) Dexamethasone Sodium Phosphate (DECADRON 4MG IJ) 4 MG .STK-MED ONE Z (DC) Glycopyrrolate (ROBINUL IJ) 0.6 MG .STK-MED ONE Z (DC) Lidocaine HCl (XYLOCAINE 1%) 5 ML .STK-MED ONE Z (DC) Neostigmine Methylsulfate (NEOSTIGMINE 1:2000) 5 MG .STK-MED ONE Z (DC) Ondansetron HCl (ZOFRAN) 4 MG .STK-MED ONE Z (DC) Phenylephrine HCl (GONZALEZ-SYNEPHRINE 1PC IJ.) 10 MG .STK-MED ONE Z (DC) Rocuronium [place] (ZEMURON) 50 MG .STK-MED ONE Z (DC) Sterile Water (WATER) 10 ML .STK-MED ONE Z (DC) Cyclobenzaprine HCl (FLEXERIL) 10 MG TID PO Prednisone (DELTASONE) 10 MG DAILY PRN PO Albuterol Sulfate (ALBUTEROL SULFATE) 1.25 MG RTQ4H PRN PRN NEB Albuterol Sulfate (VENTOLIN HFA) 1 PUFF RTQ4H PRN PRN INH (CAN) Levalbuterol (XOPENEX HFA) 1 PUFF RTQ4H PRN PRN INH (CAN) Sodium Chloride (SODIUM CHLORIDE 0.9%) 1,000 ML ONCE ONE IV (DC) Heparin Sodium/Sodium Chloride (HEPARIN 1000 UNITS/NS 500ML) 1,000 ML .STK-MED ONE IV (DC) Sevoflurane (ULTANE) 0 .STK-MED ONE .ROUTE (DC) Heparin Sodium (HEPARIN SODIUM) 0 .STK-MED ONE .ROUTE (DC) Midazolam HCl (VERSED (C-IV)) 0 .STK-MED ONE .ROUTE (DC) Etomidate (AMIDATE) 0 .STK-MED ONE .ROUTE (DC) Fentanyl Citrate (SUBLIMAZE (C-II)) 0 .STK-MED ONE .ROUTE (DC) Ephedrine Sulfate (ePHEDrine sulfate) 0 .STK-MED ONE .ROUTE (DC) Propofol (DIPRIVAN) 0 .STK-MED ONE .ROUTE (DC) Physical ExamGeneral appearance: alert, awake, orientedHead/Eyes: atraumatic, normocephalicENT: moist mucosal membranesNeck: no JVDCardiovascular: CV assessment: regular rate and rhythmRespiratory: clear to auscultation, no distressLower extremity: LE assessment: no edemaMusculoskeletal: full range of motionNeuro/TEST DESIGN ENGINEER: alert, oriented X 3, CN II-XII intactSkin: dry, intactWound/incision: Location:Bilateral groin Site condition: dressing clean dryPsychiatry: normal affect, normal judgment/insight, normal mood ResultsFindings/Data:Laboratory Tests 07/23 415 Chemistry Sodium (137 - 145 MMOL/L) 139 Potassium (3.5 - 5.1 MMOL/L) 4.7 Chloride (98 - 107 MMOL/L) 108 H Carbon Dioxide (22 - 30 MMOL/L) 21 L Anion Gap (14 - 24 MMOL/L) 15 BUN (7 - 17 MG/DL) 16 Creatinine (0.52 - 1.04 MG/DL) 0.70 Glomerular Filtr Rate > 60 Glucose (74 - 106 MG/DL) 120 H Calcium (8.4 - 10.2 MG/DL) 8.8 Laboratory Tests 07/23 415 Hematology WBC (3.8 - 9.8 K/MM3) 5.2 RBC (3.58 - 4.97 M/MM3) 4.23 Hgb (11.2 - 14.9 G/DL) 12.8 Hct (33.2 - 43.5 %) 41.1 MCV (80.7 - 99.1 fL) 97 MCH (27.0 - 34.1 pg) 30.3 MCHC (32.2 - 35.7 %) 31.1 L RDW (12.1 - 15.2 %) 13.2 Plt Count (129 - 368 K/MM3) 114 L MPV (7.4 - 10.4 fl) 12.4 H Neut % (Auto) (43 - 75 %) 79.8 H Lymph % (Auto) (14 - 44 %) 9.5 L Caroline % (Auto) (4 - 13 %) 6.5 Eos % (Auto) (0 - 6 %) 2.1 Baso % (Auto) (0 - 2 %) 1.5 Neut # (Auto) (2.0 - 7.6 K/mm3) 4.18 Lymph # (Auto) (1.0 - 3.8 K/mm3) 0.50 L Caroline # (Auto) (0.1 - 0.8 K/mm3) 0.34 Eos # (Auto) (0.0 - 0.2 K/mm3) 0.11 Baso # (Auto) (0.0 - 0.2 K/mm3) 0.08 Immature Gran % (0.0 - 2.0 %) 0.6 Nucleated RBC % (0 - 1.0 %) 0.0 Nucleated RBCs # (Man) (0.0 - 0.1 K/mm3) 0.00 Radiology data:Recent Impressions:RADIOLOGY - XR CHEST 1V 07/22 1115 Report Impression - Status: SIGNED Entered: 07/22/2023 1145 IMPRESSION: No active disease in the chest. CardiomegalyImpression By: Kike Dwyer M.D. Diagnosis, Assessment PlanHospital course to date:IMP: Atrial flutter s/p RFA PLAN: d/c home f/u 2 weeks. at 0520 RPT #:[id number] OF REPORTPRProgress zwiq5785-31-69O14:53:00Z.[id number] able for patient clyoVDBETCGTZRZSBU8587-69-20S45:20:20 [facility] 2023-07-23 06:06:00 [id number] plDrBWWu+AyeDF4Uo/MGzxAgpvCL5 Zj41ZOdNMrAyisM6MeXws5Y9Gss8174-13-36K79:06:30046 0-[address] [address] PATIENT NAME: DERRICK LOOMIS ADMIT DATE: 07/22/23ACCOUNT NO: [id number] ROOM NO: Z361 AGE: 72 REPORT TYPE: CARDIAC CATHETERIZATION REPORT SEX: F ADMITTING PHYSICIAN:Dave Lemon MD ATTENDING PHYSICIAN:Dave Lemon MD PROCEDURE DATE: 07/22/2023 PROCEDURES:1. Comprehensive electrophysiology study with atrial ablation.2. Intracardiac echocardiography.3. Cardioversion. PREPROCEDURE DIAGNOSES:1. Typical atrial flutter.2. History of paroxysmal atrial fibrillation. POSTPROCEDURE DIAGNOSES:1. Typical atrial flutter2. History of paroxysmal atrial fibrillation.3. Left atrial tachycardia. MEDICAL PARASITOLOGIST:. Dave Lemon MD BAKERY ASSOCIATE: None. ANESTHESIA: General endotracheal anesthesia. PROCEDURE IN DETAILS: After informed consent was obtained explaining to the patient risks, benefits and alternatives, the patient was brought to the cardiaccatheterization lab in the fasting postabsorptive state. Following induction ofgeneral anesthesia, local anesthesia was applied over both femoral veins with 1%lidocaine. Access to the veins was obtained using modified Seldinger technique with a micropuncture kit and ultrasound guidance. A Perclose sutures placed in a preclose fashion in the right femoral vein. A Vizigo sheath was advanced overthe wire into the inferior vena cava. The dilator and wire were removed. The sheath was aspirated and flushed and connected to heparinized saline infusion. A 6-Surinamese, locking 8-Surinamese, and 25 cm 9-Surinamese sheaths were placed in left femoral vein. All sheaths were aspirated and flushed and connected to heparinized saline infusion. An intracardiac echocardiography catheter was advanced via the 9-Surinamese sheath and placed in the right atrium. Intracardiac echocardiography was performed to visualize the cavotricuspid isthmus. A 5-Surinamese Cournand catheter was advanced via the 6-Surinamese sheath and placed in the right ventricle. A decapolar catheter was advanced via the locking 8-Frenchsheath and placed in the coronary sinus. Given history of typical atrial flutter and confirmation of left atrial tachycardia, a cardioversion was performed with 360 joule biphasic synchronized shock. PATIENT NAME: DERRICK LOOMIS A STSF ThermoCool ablation catheter was then prepped and advanced via the Vizigosheath into the right atrium. It was then placed on the cavotricuspid isthmus. Multiple RF applications were made across the cavotricuspid isthmus. Bidirectional cavotricuspid isthmus block was verified with differential pacing. At the end of the procedure, all catheters were removed. The sheaths were aspirated and flushed. The left femoral venous access sheaths were removed and hemostasis achieved with Vascade devices. The Perclose suture was utilized to close the right femoral venous access site after removal of the Vizigo sheath. The patient tolerated the procedure well with no complications. CONCLUSION: Successful cavotricuspid isthmus ablation. ESTIMATED BLOOD LOSS: 10 mL BAKERY ASSOCIATE: No complications. Dictated By: Dave Lemon MD Date Dictated: 07/23/2023 06:06:43Date Transcribed: 07/23/2023 06:23:14GSP/YACJob #: [id number] ID: [id number] CC:Dev Charles MD (F)Authenticated by Dave Lemon MD On 07/28/2023 02:00:59 PM at 0200 PATIENT NAME: DERRICK LOOMIS tfcl0216-42-81G26:23:00Z.[id number] ble for patient ovwtQNRNBPZTYBPEZF1467-58-78Y61:01:50 [facility] 06:40:00 [id number] Q+rCPr2TH273/YOroz5F36zsHbtyg 7Rq4/QXSf82hacDBbn/AJ2ZC6BQ5099-67-55B80:40:08284 9-0015 [place] [address] PATIENT NAME: DERRICK LOOMIS ADMIT DATE: 07/22/23ACCOUNT NO: [id number] ROOM NO: Z.361 AGE: 72 REPORT TYPE: ELECTROCARDIOGRAM SEX: F ADMITTING PHYSICIAN:Dave Lemon MD ATTENDING PHYSICIAN:Dave Lemon MD Order:[id number] Reason : AFLUTTER Test Date/Time Stamp:FriJul 22 2023 06:40:43Blood Pressure : / mmHGVent. Rate : 071 BPM Atrial Rate : 086 BPM P-R Int : 000 ms QRS Dur : 114 ms QT Int : 382 ms P-R-T Axes : 000 044 060 degrees QTc Int : 415 ms Atrial flutterIncomplete right bundle branch blockAbnormal ECGWhen compared with ECG of 14-JUL-2023 14:34,Reconfirmed by DEV CHARLES ([id number]) on 07/22/2023 5:59:34 PM Referred By: Self Referred Confirmed by:DEV CHARLES at 1754 PATIENT NAME: DERRICK LOOMIS .[id number] AVAvailable for patient flesLLEFEAEUEAMVNG5645-94-48O41:59:57 [facility] 2023-07-16 05:59:00 [id number] ZqyXMOCePf2e6rd0D0n9oL7EVbhxN dTzkFmwFWiHcK2kRd5eBb5JxRK61686-19-18V11:59:00 [facility] Progress NoteREPORT#:[id number] REPORT STATUS: SignedREPORT INITIALIZATION DATE:07/16/23 TIME: 05 PATIENT: DERRICK LOOMIS UNIT #: [id number]#: [id number] [facility] [birth year] AGE: 72 SEX: F ATTEND: Obi Rubio MDADM AUTHOR: Dave Lemon MDREPT SERVICE DT/TIME: 07/16/23 0559* ALL edits or amendments must be made on the electronic/computer document * SubjectiveChief complaint:having chest tightness ongoing for several daysHPI: This is cardiology consultaton for a 72-year-old female with a PMH of Afib on eliquis HTN, COPD, heart valuve regurgitation s/p Atrial Flutter AIXA, cardioversion 10/16/2022 by Micaela lemon who presents to the emergency room for evaluation of having chest tightness ongoing for several days, states today she went to go see her outpatient motor bus driver, Dr. Charles, who diagnosed her with atrial fibrillation with RVR were found to have an abnormal EKG so she was senthere to the emergency room to be evaluated. Patient reports:No: chest pain, palpitations, shortness of breath. Objective GeneralVS/I O:Vital Signs: Date Time Temp Pulse Resp B/P B/P Pulse O2 O2 Flow FiO2 Mean Ox Delivery Rate 07/16 0424 97.9 07/16 0044 82 16 112/66 81 92 Room air 07/16 0006 97.8 70 16 112/66 81 92 Room air 07/15 2202 98.5 82 20 116/58 77 93 Room air 07/15 2021 125 20 118/68 84 92 Room air 07/15 1637 97.8 73 22 138/85 102 91 Room air 07/15 1358 129 17 127/76 93 91 Room air 07/15 0800 64 15 117/67 83 90 Room air PATIENT WEIGHT: Weight (lb): Weight (oz): Weight (kg): 102.273 Physical ExamGeneral appearance: alert, awake, orientedHead/Eyes: atraumatic, normocephalicNeck: no JVD, no lymphadenopathy, no masses or swellingCardiovascular: CV assessment: irregular rhythm, irregularly irregularRespiratory: decreased breath soundsAbdomen: soft, non-tender, normal bowel sounds, obeseLower extremity: LE assessment: no edemaMusculoskeletal: full range of motionNeuro/TEST DESIGN ENGINEER: alert, oriented X 3, CN II-XII intactSkin: dry, intactPsychiatry: normal affect, normal judgment/insight, normal mood Diagnosis, Assessment Plan Free Text DxA P NotesFree Text DxA P Notes:* Atrial fibrillation with RVR rate at 124 on Eliquis * Hypertension* Heart valve regurgitation* COPD (chronic obstructive pulmonary disease)a 72-year-old female with a PMH of Afib on eliquis HTN, COPD, heart valuve regurgitation s/p Atrial Flutter AIXA, cardioversion 10/16/2022 by Micaela lemon who presents to the emergency room for evaluation of having chest tightness ongoing for several days,she was on digoxin and metoprolol.she had AIXA and cardioversion correction for A flutter 0n case discussed with JACK Copeland discussed with : Amy PlanIncrease metoprolol to 50 mg Po BId at 0625 [facility] #:[id number] OF REPORTPRProgress wbzx8561-13-34X75:59:00Z.[id number] able for patient yohsUONSBOMUWZNTDO2320-26-05Q72:25:55 [facility] 2023-07-15 21:35:00 [id number] h37+vIxxgDOyNWnds5ury2RX1Vcw0 HyEzqH72CGRu8WF5BdzpBeoG/E96357-24-50T16:35:30975 [id number] [address] PATIENT NAME: DERRICK LOOMIS ADMIT DATE: 07/14/23ACCOUNT NO: [id number] ROOM NO: Z344 AGE: 72 REPORT TYPE: CONSULTATION REPORT SEX: F ADMITTING PHYSICIAN:Obi Rubio MD ATTENDING PHYSICIAN:Obi Rubio MD CONSULTATION DATE: 07/15/2023 REFERRING PHYSICIAN: Dr. Copeland. REASON FOR CONSULTATION: I was asked to evaluate this patient for atrial flutter. HISTORY OF PRESENT ILLNESS: This is a 72-year-old female with a history of prior atrial flutter, status post cardioversion on 10/16/2022. She presented tot Emergency Room with complaints of chest tightness. She was found to be in atrial flutter with rapid ventricular response. Currently, she is feeling better, but continues to have tachycardia. PAST MEDICAL HISTORY:1. Atrial flutter, status post cardioversion on 10/16/2022, now recurrent.2. COPD PAST SURGICAL HISTORY: Hysterectomy, right ankle surgery, wisdom teeth, skin cancer, kidney stone. FAMILY HISTORY: No family history of heart disease. SOCIAL HISTORY: A 2-3 drinks per month. Former smoker. ALLERGIES: SULFA, BUPROPION. HOME MEDICATIONS: ProAir, Xopenex, apixaban 5 mg twice daily, carvedilol 3.125 mg twice daily, losartan 50 mg daily, calcium carbonate, potassium gluconate, zinc, fluticasone, magnesium oxide, prednisone, ascorbic acid, cholecalciferol. REVIEW OF SYSTEMS:CONSTITUTIONAL: No complaints of fever or chills.ENMT: No complaints of headache.EYES: No complaints of blurred vision.RESPIRATORY: No shortness of breath.CARDIOVASCULAR: Palpitations.GASTROINTESTINAL: No complaints of nausea or vomiting.GENITOURINARY: No complaints of urinary frequency or dysuria.MUSCULOSKELETAL: No complaints of joint pain.SKIN: No complaints of skin rash.NEUROLOGIC: No complaints of focal weakness. PATIENT NAME: DERRICK LOOMIS PHYSICAL EXAMINATION:GENERAL: Well-nourished female in no acute distress.VITAL SIGNS: Temperature 97.8, blood pressure 118/68, pulse 125, respiratory rate 20, O2 sats 92%.ENMT: Atraumatic, normocephalic.RESPIRATORY: Normal effort. Clear to auscultation bilaterally.CARDIOVASCULAR: Tachycardic, S1 and S2. No S3 or S4.NECK: JVP is normal. There are no carotid bruits.EXTREMITIES: No edema.NEUROLOGIC: Cranial nerves II-XII are intact. No focal motor deficits noted. DIAGNOSTIC DATA: Telemetry shows atrial flutter. LABORATORY DATA: White blood cell count 11, hemoglobin 14.8, platelets 187. Sodium 142, potassium 4.1, chloride 105, CO2 30, BUN 22, creatinine 0.8, rkqexff286, calcium 8.9. INR 1.3. IMPRESSION: Atrial flutter with variable conduction. RECOMMENDATIONS:1. Increase metoprolol.2. We will discuss further treatment options with repeat cardioversion versus atrial flutter ablation. Dictated By: Dave Lemon MD Date Dictated: 07/15/2023 21:35:33Date Transcribed: 07/15/2023 21:55:36Loyda/Imtiaz #: [id number] ID: [id number] by Dave Lemon MD On 07/18/2023 09:37:32 AM at 0937 PATIENT NAME: DERRICK LOOMIS :55:00Z.[place] [id number] for patient kclkCMSPZMXNVJFPSW7304-89-27R73:38:01 [facility] 2023-07-15 15:23:00 [id number] RrV1cR5slxAcR2jXWfz/YA/8fzclC ljSvr9+G3eS/7k4T9DQm68Uw/s88792-42-83L12:23:00 [facility])Cardiology ConsultationREPORT#:[id number] REPORT STATUS: SignedREPORT INITIALIZATION DATE:07/15/23 TIME: 1522 PATIENT: DERRICK LOOMIS UNIT #: [id number]#: [id number] ROOM[facility]BED: [facility]-7DOB: [birth year] AGE: 72 SEX: F ATTEND: Obi Rubio MDADM AUTHOR: Ernesto Benitez NPREPT SERVICE DT/TIME: 07/15/231522* ALL edits or amendments must be made on the electronic/computer document * Ernesto Benitez 07/15/23 1523:History of Present Illness HPIReason for consult:A Fibillation Chief complaint:having chest tightness ongoing for several daysHPI: This is cardiology consultaton for a 72-year-old female with a PMH of Afib on eliquis HTN, COPD, heart valuve regurgitation s/p Atrial Flutter AIXA, cardioversion 10/16/2022 by Micaela lemon who presents to the emergency room for evaluation of having chest tightness ongoing for several days, states today she went to go see her outpatient motor bus driver, Dr. Charles, who diagnosed her with atrial fibrillation with RVR were found to have an abnormal EKG so she was senthere to the emergency room to be evaluated. History - Adult longitudinalAdditional medical history:COPD, unknown arrhythmia, and regurgitation of unknown valveAdditional surgical history:hysterectomy, right ankle surgey, wisdom teeth removal, skin cancer removal on nose (not melenoma), kidney stone removalFamily history:Denies: Diabetes, Heart disease, Hypertension. Additional family history:daughter - strokeAlcohol use: Alcohol use (2-3x/mo)Drug use: Denies recreational drugsSmoking status for patients 13 years old or older: Former SmokerOther social history: Retired, Good social support, [place] Hospitalergies:Coded Allergies:Sulfa (Sulfonamide Antibiotics) (Intermediate, MIGRAINES 10/16/22)bupropion (From WELLBUTRIN) (Intermediate, ANXIETY 03/14/23) Objective GeneralVS/I O:Vital Signs: Date Time Temp Pulse Resp B/P B/P Pulse O2 O2 Flow FiO2 Mean Ox Delivery Rate 07/15 0151 105 16 121/67 85 94 Room air 07/15 0011 90 16 133/70 91 89 Room air 07/14 2200 96 16 114/70 843 90 Room air 07/14 1952 123 18 104/72 82 91 Room air 07/14 1943 126 18 95/70 78 94 Room air 07/14 1915 124 17 108/68 81 89 Room air 07/14 1545 98 24 hour I O ending at 0700: 07/15 0700 07/14 1900 Intake Total Output Total Balance Patient 225 lb Weight Weight Stated/Reported Measurement Method PATIENT WEIGHT: Weight (lb): Weight (oz): Weight (kg): 102.273 Medications:Active Meds + DC'd Last 24 HrsApixaban (Eliquis) 5 MG BID PO Ascorbic Acid (ASCORBIC ACID, VIT C) 1,000 MG DAILY PO Calcium Carbonate (OSCAL 500MG) 500 MG DAILY PO Cholecalciferol (VITAMIN D) 2,000 UNIT DAILY PO (CKD) Losartan Potassium (COZAAR) 50 MG DAILY PO Albuterol Sulfate (ALBUTEROL SULFATE) 2.5 MG RTQ4H PRN PRN NEB Metoprolol Tartrate (LOPRESSOR) 25 MG Q12HR PO Digoxin (LANOXIN) 0.5 MG NOW ONE IV (DC) Physical ExamGeneral appearance: obese, alert, awake, orientedNeck: no JVD, no lymphadenopathy, no masses or swellingCardiovascular: CV assessment: irregular rhythm, irregularly irregularRespiratory: decreased breath soundsAbdomen: soft, non-tender, normal bowel sounds, obese ResultsFindings/Data:Laboratory Tests 07/15 234 Chemistry Sodium (137 - 145 MMOL/L) 142 Potassium (3.5 - 5.1 MMOL/L) 4.1 Chloride (98 - 107 MMOL/L) 105 Carbon Dioxide (22 - 30 MMOL/L) 30 Anion Gap (14 - 24 MMOL/L) 11 L BUN (7 - 17 MG/DL) 22 H Creatinine (0.52 - 1.04 MG/DL) 0.80 Glomerular Filtr Rate > 60 Glucose (74 - 106 MG/DL) 110 H Calcium (8.4 - 10.2 MG/DL) 8.9 Laboratory Tests 07/15 234 Hematology WBC (3.8 - 9.8 K/MM3) 11.0 H RBC (3.58 - 4.97 M/MM3) 4.92 Hgb (11.2 - 14.9 G/DL) 14.8 Hct (33.2 - 43.5 %) 46.8 H MCV (80.7 - 99.1 fL) 95 MCH (27.0 - 34.1 pg) 30.1 MCHC (32.2 - 35.7 %) 31.6 L RDW (12.1 - 15.2 %) 13.0 Plt Count (129 - 368 K/MM3) 187 MPV (7.4 - 10.4 fl) 11.1 H Neut % (Auto) (43 - 75 %) 68.1 Lymph % (Auto) (14 - 44 %) 21.5 Caroline % (Auto) (4 - 13 %) 8.6 Eos % (Auto) (0 - 6 %) 0.8 Baso % (Auto) (0 - 2 %) 0.5 Neut # (Auto) (2.0 - 7.6 K/mm3) 7.52 Lymph # (Auto) (1.0 - 3.8 K/mm3) 2.37 Caroline # (Auto) (0.1 - 0.8 K/mm3) 0.95 H Eos # (Auto) (0.0 - 0.2 K/mm3) 0.09 Baso # (Auto) (0.0 - 0.2 K/mm3) 0.05 Immature Gran % (0.0 - 2.0 %) 0.5 Nucleated RBC % (0 - 1.0 %) 0.0 Nucleated RBCs # (Man) (0.0 - 0.1 K/mm3) 0.00 Results: labs reviewed, EKG personally reviewed, rhythm personally rev'd, current med profile rev'dInterpretationI independently reviewed the [ ] and my interpretation is [ ] Diagnosis, Assessment PlanConsultants: cardiology Free Text DxA P NotesFree Text DxA P Notes:* Atrial fibrillation with RVR rate at 124 on Eliquis * Hypertension* Heart valve regurgitation* COPD (chronic obstructive pulmonary disease)a 72-year-old female with a PMH of Afib on eliquis HTN, COPD, heart valuve regurgitation s/p Atrial Flutter AIXA, cardioversion 10/16/2022 by Micaela lemon who presents to the emergency room for evaluation of having chest tightness ongoing for several days,she was on digoxin and metoprolol.she had AIXA and cardioversion correction for A flutter 0n case discussed with JACK Copeland discussed with Jack Lemon PlanIncrease metoprolol to 50 mg Po BId Duarte Copeland 07/15/23 1722:AttestationsAttestation needed: supervising physician Physician AttestationAgree w/findings plan:Agree with the findings and plan as documented by Ernesto benitez;* my personal evaluation is[ ]Patient is 72-year-old female with a history of A-fib on anticoagulation who nowpresents with atrial flutter with RVR Atrial flutter with RVR: Patient already on anticoagulation Patient will undergo atrial flutter ablation by Dr. Lemon tomorrow Hold Kathleen morales, continue metoprolol for now 15 minutes physician distinct time10 minutes MEDICAL SERVICE TECHNICIAN distinct time5 minutes collaborative time spent discussing the following diagnoses: Atrial flutter at 1645 at 1728 RPT #:[id number] OF REPORTULCpjufuzjaclm6224-80-31O72:23:00Z.PDOC2 [id number] for patient uedsXHEUCZAMEHZMMP5022-72-47Q75:45:47 [facility] 2023-07-14 23:59:00 [id number] KvZzur7mLq/0XZjngxwPmlizQQzdj V8XN0lFZb7gcq94imd8+GYXimVT5393-61-30M63:59:00 [facility] ([facility])DT PROGRESS NOTEREPORT#:[id number] REPORT STATUS: SignedREPORT INITIALIZATION DATE:07/14/23 TIME: 2358 PATIENT: DERRICK LOOMIS UNIT #: [id number]#: [id number] [address] [birth year] AGE: 72 SEX: F ATTEND: Obi Rubio MDADM AUTHOR: Obi Rubio MDREPT SERVICE DT/TIME: 07/14/23 9589* ALL edits or amendments must be made on the electronic/computer document * Progress NoteProgress NoteMedicine Patient seen and examined bedside. Her labs have been reviewed is her medications. I have placed all the consults. Medications adjusted. Complete H P to be dictated Obi Rubio MD at 2353 RPT #:[id number] OF REPORTPRProgress cczc0895-79-74H25:59:00Z.[id number] able for patient buzcMEWZPYCXKFVIZQ6943-93-82I51:59:38 [facility] 2023-07-14 15:07:00 [id number]/IO4zN ZLJFgxJdaDQOjykd+7rDpiqKA2cy1 /0epi4bZUyrnZi20rp6RmneG+Gf4080-01-36Y99:07:00 [facility] ([facility])EMERGENCY PROVIDER REPORTREPORT#:[id number] REPORT STATUS: SignedDATE:07/14/23 TIME: 1507 PATIENT: DERRICK LOOMIS UNIT #: [id number]#: [id number] [address] 72 SEX: F PCP PHYS: No Primary or Family PhysicianSERVICE AUTHOR: Wendy Noonan DO LOCATION: [facility] * ALL edits or amendments must be made on the electronic/computer document * HPI-Chest Pain 40 and Over GeneralConfirmed Patient YesPatient Type Existing patientInitial Greet Date/Time 07/14/23 1434 PresentationChief Complaint Chest painHx Obtained From PatientSudden in Onset? NoOnset Occurred Days ago (4)Symptom Duration Since onset, Waxes and wanesProgression since Onset IntermittentLocation SubsternalQuality AchingRadiationNo: Does not radiate. )( Migration/Movement None Free Text HPI NotesFree Text HPI NotesThidarin is a 72 years old female with a past medical history significant for atrialfibrillation with RVR, who is on Eliquis on daily basis, who presents to the emergency department the chief complaint of chest pain off and on over the past 4 days. Patient stated that she went to see her regular motor bus driver today. She was told by her regular motor bus driver that she needs to go to emergency department to be seen by electrical sales promotion representative, Dr. Brand. Upon arrival patient had EKG done. EKG showed a STEMI. Patient was brought back immediatelyto the main ED. Patient denies any dizziness at this time. No cough. No fever. No other complaints. Risk-Chest Pain 40 and Over Risk Stratification)( Coronary Artery Disease Risk factors reviewed)( Thoracic Aortic Dissection Risk factors reviewed)( Pulmonary Embolism Risk factors reviewed)( AMI-Aspirin Aspirin Last 24 Hrs None)( HEART for MACE )( HEART for MACE Response Value History Mod index of suspicion [address]-depression 2 Age Age 65 or over 2 Risk Factors for CAD 3+ CAD risk factors 2 Total 7 Review of Systems ROS StatementsAll systems rev neg except as marked.Complete sys rev neg except as marked. Basic Review of SystemsBasic ROS EYES: No redness, ENT: No sore throat, : No dysuria/frequency, HEM: No bleeding/bruising Past Medical History - AdultStated Complaint [facility] Allergies:Sulfa (Sulfonamide Antibiotics) (Intermediate, MIGRAINES 10/16/22)bupropion (From WELLBUTRIN) (Intermediate, ANXIETY 03/14/23) Home MedicationsActive ScriptsAPIXABAN (ELIQUIS) 5 MG PO BID 30 Days #60 TABS Prov: 10/16/22 Reported MedicationsLOSARTAN (COZAAR) 50 MG PO DAILY ALBUTEROL (PROAIR HFA 90 MCG/ACT 8.5 GM) 1 PUFF INH RTQ4H PRN PRN DYSPNEA/WHEEZING CARVEDILOL (COREG) 3.125 MG PO BID FLUTICASONE FUROATE/VILANTEROL 100/25 MCG/ACT (BREO ELLIPTA 100/25 MCG/ACT) 1 PUFF INH BID LEVALBUTEROL (XOPENEX HFA 45 MCG/ACT 15 GM) 1 PUFF INH RTQ4H PRN PRN COPD predniSONE 10 MG PO DAILY PRN COPD- CONGESTION POTASSIUM GLUCONATE (POTASSIUM) 99 MG PO DAILY ZINC GLUCONATE 50 MG PO DAILY MAGNESIUM OXIDE (MAG-OXIDE) 500 MG PO BID CHOLECALCIFEROL (VITAMIN D3) (VITAMIN D3) 2,000 UNITS PO DAILY ASCORBIC ACID (VITAMIN C) 1,000 MG PO DAILY CALCIUM CARBONATE (CALTRATE 600 MG) 600 MG PO DAILY Physical Exam Vital SignsVital SignsFirst Documented: Result Date Time Pulse Ox 93 07/14 1440 B/P 110/71 07/14 1440 B/P Mean 84 07/14 1440 O2 Delivery Room air 07/14 1440 Temp 36.4 07/14 1440 Pulse 125 07/14 1440 Resp 18 07/14 1440 Last Documented: Result Date Time Pulse Ox 98 07/14 1545 B/P 110/71 07/14 1440 B/P Mean 84 07/14 1440 O2 Delivery Room air 07/14 1440 Temp 36.4 07/14 1440 Pulse 125 07/14 1440 Resp 18 07/14 1440 Review of Vital Signs Reviewed Basic Physical ExamBasic PE HEAD: Atraumatic/NC, EYES: PERRL, conj clear, ENT: Membranes moist, NECK: Supple, EXT: No gross abnormality, SKIN: No rashes, warm/dry, NEURO: alert oriented, NEURO: gross movement NL, PSYCH: NL thought content Focused PEGeneral/Const General/Const Awake, Alert, Well appearing, Well developed, Well hydrated, Well nourished, Cooperative, Not toxic appearing Distress/Hydration Distress mild. Resp/Chest Respiratory/Chest Atraumatic, Breath sounds NL, Breath sounds = bilat, No respiratory distress, No rales, No rhonchi, No wheezing, No retractions, No stridor, No chest tenderness, No chest wall deformity, No crepitusCardiovascular Cardiovascular Heart sounds NL Heart Rate/Rhythm Tachycardia, Irreg irregular rhythm. Abdomen/GI Tenderness/Guarding/Rebound Negative: Tender RUQ, Tender LUQ, Tender RLQ, Tender LLQ, Tender epigastric, Tender periumbilical, Tender suprapubic, Tender diffuse, Tender flank R, Tender flank L, Gregg's sign positive, McBurney's point tender, Guarding voluntary, Guarding involuntary, Rebound localized, Rebound diffuse, Rigid to palpation. Interpretation Diagnostics Lab Results InterpretationConsiderations Independ review imaging, Reviewed prior recordsResultsLaboratory Tests 07/14/23 1525:[Embedded Image Not Available]Laboratory Tests: 07/14 1525 Chemistry Sodium (137 - 145 MMOL/L) 137 Potassium (3.5 - 5.1 MMOL/L) 4.8 Chloride (98 - 107 MMOL/L) 106 Carbon Dioxide (22 - 30 MMOL/L) 26 Anion Gap (14 - 24 MMOL/L) 10 L BUN (7 - 17 MG/DL) 19 H Creatinine (0.52 - 1.04 MG/DL) 0.80 Glomerular Filtr Rate > 60 Glucose (74 - 106 MG/DL) 132 H Calcium (8.4 - 10.2 MG/DL) 9.2 Magnesium (1.6 - 2.3 MG/DL) 2.1 Total Bilirubin (0.2 - 1.3 MG/DL) 0.7 Direct Bilirubin (0.0 - 0.3 MG/DL) 0.0 AST (14 - 36 UNITS/L) 46 H ALT (0 - 34 UNITS/L) 48 H Total Alk Phosphatase (38 - 126 UNITS/L) 83 Troponin I (0.012 - 0.033 NG/ML) < 0.012 L NT-Pro-B Natriuret Pep (pg/mL) 1140.0 Total Protein (6.3 - 8.2 G/DL) 7.6 Albumin (3.5 - 5.0 G/DL) 4.2 Lipase (23 - 300 UNITS/L) 52 Coagulation INR (0.86 - 1.14) 1.3 H APTT (27.2 - 37.9 SECONDS) 33.2 PT Patient/Control Mix (10.1 - 12.6 SECONDS) 14.7 H Hematology WBC (3.8 - 9.8 K/MM3) 12.7 H RBC (3.58 - 4.97 M/MM3) 5.26 H Hgb (11.2 - 14.9 G/DL) 16.0 H Hct (33.2 - 43.5 %) 49.0 H MCV (80.7 - 99.1 fL) 93 MCH (27.0 - 34.1 pg) 30.4 MCHC (32.2 - 35.7 %) 32.7 RDW (12.1 - 15.2 %) 13.0 Plt Count (129 - 368 K/MM3) 231 Neut # (Auto) (2.0 - 7.6 K/mm3) 10.76 H Lymph # (Auto) (1.0 - 3.8 K/mm3) 1.12 Caroline # (Auto) (0.1 - 0.8 K/mm3) 0.61 Eos # (Auto) (0.0 - 0.2 K/mm3) 0.04 Baso # (Auto) (0.0 - 0.2 K/mm3) 0.06 Nucleated RBCs # (Man) (0.0 - 0.1 K/mm3) 0.00 Recent Impressions:RADIOLOGY - XR CHEST 1V 07/14 1515 Report Impression - Status: SIGNED Entered: 07/14/2023 1542 IMPRESSION:Mild bibasilar atelectasis.Impression By: Sarah Botello MD ECG #1 Interpretation ECG Interpretation NoteThe ECG interpretation was done contemporaneously by me. This is an adequate tracing. EKG was done at 2:34 PM. Questionable A-fib with RVR. Rate of 125. ST-T depression noted in the inferolateral leads. No old EKG for comparison at this time Re-Evaluation [facility] ED CourseMedication(s) OrderedMedication(s) Ordered:Cardiovascular Drugs Sig/Marisela Start time Last Medication Dose Route Stop Time Status Admin Metoprolol Tartrate 5 MG X1ED STA 07/14 1455 DC / IV 07/14 1456 1511 Central Nervous System Agents Sig/Marisela Start time Last Medication Dose Route Stop Time Status Admin Aspirin 324 MG X1ED STA 07/14 1435 DC 12 PO 07/14 1436 1512 Differential Diagnosis)( Differential Diagnosis Chest pain, CAD, ACS, cardiac arrhythmia, electrolyte abnormality, dehydration Free Text MDM NotesFree Text [facility] NotesPatient remained stable throughout course of treatment. Her EKG did not show STEMI. However I texted the EKG to the STEMI motor bus driver on-call, Dr. Copeland. He also agrees that this is not a STEMI. Labs were essentially unremarkable Patient is on Eliquis. The decision was made to admit the patient. Dr. Copeland actually presented to the emergency department evaluated patient. Case discussed with admitting physician. Will admit to his service. Patient Discharge Departure Vital Signs/ConditionVital SignsFirst Documented: Result Date Time Pulse Ox 93 07/14 1440 B/P 110/71 12/ 1440 B/P Mean 84 / 1440 O2 Delivery Room air 07/14 1440 Temp 36.4 12/ 1440 Pulse 125 / 1440 Resp 18 07/14 1440 Last Documented: Result Date Time Pulse Ox 98 / 1545 B/P 110/71 / 1440 B/P Mean 84 / 1440 O2 Delivery Room air 07/14 1440 Temp 36.4 07/14 1440 Pulse 125 07/14 1440 Resp 18 07/14 1440 All vital signs available at the time of this entry have been reviewed. Condition Stable, Improved Clinical ImpressionClinical ImpressionPrimary Impression: Chest painSecondary Impressions: Atrial fibrillation Disposition DecisionHospitalize Hosp Physician Name Obi Rubio MD [facility] Physician Hospitalist Request Time 164 Request Date 07/14/23 )( Accepts Hospitalization Yes )( Accepted Time 164 )( Accepted Date 07/14/23 Call Information will see patient, agrees with eval, agrees with plan Discharge/Care Plan Admit NoteI have spoken with the patient and/or caregivers. I have explained the patient'scondition, diagnoses and treatment plan based on the information available to meat this time. I have answered the patient's and/or caregiver's questions and addressed any concerns. The patient and/or caregivers have as good an understanding of the patient's diagnosis, condition and treatment plan as can beexpected at this point. The patient has been stabilized within the capability ofthe emergency department. The patient will be transported for further care and management or will be moved to an observation or inpatient service. I have communicated with the staff or medical practitioner taking over this patient's care. at 1705RPT #:[id number] OF REPORTEDEmergency department dbxzny8612-20-71E81:07:00Z.YFTE11272110-8887CUTzm ilable for patient dgzgIJSQWYVQBGEDRU7616-36-35D68:06:11 [facility] 14:35:00 [id number] uv4efH6ZeMV8kD6+YHkQIqll94gYc WB7w4GJVxUVcSdopGBDimkkxKkq2284-06-25R24:35:00 [facility] ([facility])EMERGENCY PROVIDER REPORTREPORT#:[id number] REPORT STATUS: SignedDATE:07/14/23 TIME: 1435 PATIENT: DERRICK LOOMIS UNIT #: [id number]#: [id number] ROOM/BED:AGE: 72 SEX: F PCP PHYS:SERVICE DT: AUTHOR: John Watkins LOCATION: [facility] * ALL edits or amendments must be made on the electronic/computer document * Provider in Triage - Adult Provider in TriageInitial Greet Date/Time 07/14/23 1434 Greet NoteI have greeted and performed a focused rapid initial assessment of this patient.A comprehensive ED assessment and evaluation of the patient, analysis of all test results, and completion of the medical decision-making process will be conducted by additional ED providers. MSE Not CompleteThe medical screening exam is not complete. Further evaluation and/or treatment is required. The patient will be re-directed to the emergency department. Free Text PIT NotesFree Text PIT NotesI have greeted and performed a focused rapid initial assessment of this patient.A comprehensive ED assessment and evaluation of the patient, analysis of all test results, and completion of the medical decision-making process will be conducted by additional ED providers. HPI: This is a 72-year-old female who presents to the emergency room for evaluation of having chest tightness ongoing for several days, states today she went to go see her motor bus driver were found to have an abnormal EKG so she was sent here to the emergency room to be evaluated. Patient currently is having chest tightness, palpitation and some shortness of breath. Patient is awake, alert, oriented x3, nontoxic-appearing and in no acute distress RR: Atraumatic, no acute respiratory distressCV: Normal cap refill, no central cyanosisSkin: Atraumatic, no obvious laceration, wound or rash Initial labs, radiographs, meds ordered upon initial assessment. PMH-Provider in TriageStated Complaint [facility]:Sulfa (Sulfonamide Antibiotics) (Intermediate, MIGRAINES 10/16/22)bupropion (From WELLBUTRIN) (Intermediate, ANXIETY 03/14/23) Home MedicationsActive ScriptsAPIXABAN (ELIQUIS) 5 MG PO BID 30 Days #60 TABS Prov: 10/16/22 Reported MedicationsLOSARTAN (COZAAR) 50 MG PO DAILY ALBUTEROL (PROAIR HFA 90 MCG/ACT 8.5 GM) 1 PUFF INH RTQ4H PRN PRN DYSPNEA/WHEEZING CARVEDILOL (COREG) 3.125 MG PO BID FLUTICASONE FUROATE/VILANTEROL 100/25 MCG/ACT (BREO ELLIPTA 100/25 MCG/ACT) 1 PUFF INH BID LEVALBUTEROL (XOPENEX HFA 45 MCG/ACT 15 GM) 1 PUFF INH RTQ4H PRN PRN COPD predniSONE 10 MG PO DAILY PRN COPD- CONGESTION POTASSIUM GLUCONATE (POTASSIUM) 99 MG PO DAILY ZINC GLUCONATE 50 MG PO DAILY MAGNESIUM OXIDE (MAG-OXIDE) 500 MG PO BID CHOLECALCIFEROL (VITAMIN D3) (VITAMIN D3) 2,000 UNITS PO DAILY ASCORBIC ACID (VITAMIN C) 1,000 MG PO DAILY CALCIUM CARBONATE (CALTRATE 600 MG) 600 MG PO DAILY Additional Medical HistoryCOPD, unknown arrhythmia, and regurgitation of unknown valveAdditional Surgical Historyhysterectomy, right ankle surgey, wisdom teeth removal, skin cancer removal on nose (not melenoma), kidney stone removalAlcohol Use Alcohol use (2-3x/mo)Drug Use Denies recreational drugsOther Social History Retired, Good social support, Lives in [place] at [address]RPT #:[id number] OF REPORTEDEmergency department dwhxqu8907-61-52O38:35:00Z.MDZB21856609-1855HJYgr ilable for patient oglfHSGVJNLEZBVQWI7748-61-97J45:45:56 [facility] 2023-07-14 14:34:00 [id number] iOEp8VXycK6nxwPvTJOMKl7L24sJU xIKPRydA3LDYOCUnWZQZ7HQKvQi5702-27-51U09:34:[address] [address] PATIENT NAME: DERRICK LOOMIS ADMIT DATE: 07/14/23ACCOUNT NO: [id number] ROOM NO: Z.344 AGE: 72 REPORT TYPE: ELECTROCARDIOGRAM SEX: F ADMITTING PHYSICIAN:Obi Rubio MD ATTENDING PHYSICIAN:Obi Rubio MD Order:[id number] Reason : Test Date/Time Stamp:FriJul 14 2023 14:34:31Blood Pressure : / mmHGVent. Rate : 125 BPM Atrial Rate : 125 BPM P-R Int : 190 ms QRS Dur : 108 ms QT Int : 276 ms P-R-T Axes : 089 -86 085 degrees QTc Int : 398 ms Atrial flutter with 2 to 1 blockIncomplete right bundle branch blockLeft anterior fascicular blockAbnormal ECGWhen compared with ECG of 14-MAR-2023 12:41,premature supraventricular complexes are no longer presentVent. rate has increased BY 57 BPMLeft anterior fascicular block is now presentConfirmed by DEV CHARLES ([id number]) on 07/16/2023 4:52:36 PM Referred By: Obi Rubio Confirmed by:DEV CHARLES at 1652 PATIENT NAME: DERRICK LOOMIS .[id number] AVAvailable for patient owhjBQZLLGSGQSSEHP3894-13-02Q60:53:04 [facility] 2023-03-14 12:41:00 [id number] +ZoH3XE3ImF1C5O3XwO5XXfgRkDwU 6+W72/LOvz8a6VrxfvUEXmZMc5j9984-92-32U95:41:[address] [address] PATIENT NAME: DERRICK LOOMIS ADMIT DATE: ACCOUNT NO: [id number] ROOM NO: AGE: 72 REPORT TYPE: eELECTROCARDIOGRAM REPORT SEX: F ADMITTING PHYSICIAN: ATTENDING PHYSICIAN:Dave Lemon MD Order:[id number] Reason : PREOP Test Date/Time Stamp:FriMar 14 2023 12:41:52Blood Pressure : / mmHGVent. Rate : 068 BPM Atrial Rate : 068 BPM P-R Int : 138 ms QRS Dur : 102 ms QT Int : 424 ms P-R-T Axes : 072 003 086 degrees QTc Int : 450 ms Sinus rhythm with premature supraventricular complexesIncomplete right bundle branch blockNormal ECGWhen compared with ECG of 16-OCT-2022 09:33,No changesConfirmed by MD OSORIO GERARD ([id number]) on 03/14/2023 1:42:10 PM Referred By: Dave Lemon Confirmed by:EDUARDO OSORIO MD at 1342 PATIENT NAME: DERRICK LOOMIS .[id number] AVAvailable for patient fxpnJOKYNUMMOQGYNH4028-77-21P33:42:43 [facility] 2022-10-21 11:02:00 [id number]+ Qkt3qqlvQ8owNv9uqxANkrWITyL/b 8zD2Hen1gLDHUw3DpBzaGVMAgYn9298-43-67D46:02:07653 0-[address] [address] PATIENT NAME: DERRICK LOOMIS ADMIT DATE: 10/15/22ACCOUNT NO: [id number] ROOM NO: Z.430 AGE: 72 REPORT TYPE: eTRANSESOPHAGEAL ECHO SEX: F ADMITTING PHYSICIAN:Lyle Schaefer MD ATTENDING PHYSICIAN:Lyle Schaefer MD *[facility]*[address] [place] [id number] Transesophageal Echocardiogram Patient: Esteban Loomisudy Date: 10/16/2022 BP: Location: GET: [id number] : 1950 Age: 72 Height: 67 in / 170.2 cmAccession#: [id number] Gender: F Weight: 130.7 lb / 59.4 kgBMI/BSA: 20.5 kg/m 2 / 1.67 m 2 *Ordering Physician: * Dave Lemon MD *Interpreting Physician: * Dave Lemon MD*Metal [employer] Press Operator: Mariya Banegas Indications: ATRIAL FLUTTER. Study data: Consent: The risks, benefits, and alternatives to theprocedure were explained to the patient and informed consent wasobtained. Procedure: Initial setup: The patient was brought to thelaboratory in the fasting state.Intravenous access was obtained. SurfaceECG leads and pulse oximetric signals were monitored. Sedation. Moderatesedation was administered by cardiology staff. Transesophagealechocardiography was performed. Topical anesthesia was obtained usingviscous lidocaine. A transesophageal probe was inserted by the attendingcardiologist without difficulty. Images were obtained using a [employer] cardiacultrasound machine. 2D, spectral Doppler, and color Doppler. Location: Catheterization laboratory. Patient status: Inpatient. Patient roomnumber: 430. Study status: Routine. Study completion: The patienttolerated the procedure well. There were no complications. PATIENT NAME: DERRICK LOOMIS [phone] [address] PATIENT NAME: DERRICK LOOMIS ADMIT DATE: 10/15/22ACCOUNT NO: [id number] ROOM NO: [facility] AGE: 72 REPORT TYPE: eTRANSESOPHAGEAL ECHO SEX: F ADMITTING PHYSICIAN:Lyle Schaefer MD ATTENDING PHYSICIAN:Lyle Schaefer MD Findings Left ventricle: The cavity size is normal. Systolic function is normal.Right ventricle: The cavity size is normal. Systolic function isnormal.Left atrium: The atrium is normal in size. The appendage is of normalsize. Emptying velocity is normal. There is no evidence of a thrombusin the atrial cavity or appendage. No spontaneous echo contrast isobserved.Atrial septum: No defect or patent foramen ovale is identified.Doppler shows no ocnir-wj-mxud atrial level shunt. Echo contrast studyshows no qzcab-cn-orck atrial level shunt.Aortic valve: The valve is structurally normal. The valve istrileaflet. Cusp separation is normal. There is no evidence ofstenosis. There is mild regurgitation.Mitral valve: The valve is structurally normal. There is mildregurgitation.Tricuspid valve: The valve is structurally normal. There ismild-moderate regurgitation.Pulmonic valve: Not well visualized. There is no regurgitation.Pericardium: There is no pericardial effusion. Measurements Tricuspid valve Value Ref TR peak v 2.98 m/sec <=2.8 Peak RV-RA grad, S 36 mm Hg ----- Conclusions Summary: 1. Left ventricle: The cavity size is normal. Systolic function is normal.2. Left atrium: There is no evidence of a thrombus in the atrial cavity or appendage. No spontaneous echo contrast is observed.3. Atrial septum: No defect or patent foramen ovale is identified. Doppler shows no zjesa-yl-yfbp atrial level shunt. Echo contrast study shows no mycfa-rj-hrew atrial level shunt.4. Tricuspid valve: There is mild-moderate regurgitation. PATIENT NAME: DERRICK LOOMIS [phone] [place] [address] PATIENT NAME: DERRICK LOOMIS ADMIT DATE: 10/15/22ACCOUNT NO: [id number] ROOM NO: [facility] AGE: 72 REPORT TYPE: eTRANSESOPHAGEAL ECHO SEX: F ADMITTING PHYSICIAN:Lyle Schaefer MD ATTENDING PHYSICIAN:Lyle Schaefer MD Prepared and electronically signed by Dave Lemon MD10/21/2022 11:02 at 1102 PATIENT NAME: DERRICK LOOMIS bpltzmi6514-47-40Y42:02:00Z.[id number] ilable for patient xjsfFFVBUYMRMZBAVO7124-06-43V56:03:09 [facility] 2022-10-16 16:15:00 [id number] gokZt3IHtYYhK2NKgMu0iMikgRaC4 3hQxPC5V3buPZx9EEbtMr2deOfE6355-95-08O35:15:00 [facility] ([facility])Hospitalist Discharge SummaryREPORT#:[id number] REPORT STATUS: SignedDATE:10/16/22 TIME: 1615 PATIENT: DERRICK LOOMIS UNIT #: [id number]#: [id number] ROOM/BED: [facility]-ADOB: [birth year] AGE: 72 SEX: F ATTEND: Lyle Schaefer [facility] AUTHOR: Castillo Chao MD R3 * ALL edits or amendments must be made on the electronic/computer document * Castillo Chao 10/16/22 1615:General InformationProblem List/A P: 1. Atrial flutter A P ECG with probable atrial flutter with 2:1 atrial ventricular conduction Resolved status post cardioversion 2. Volume overload A P Mild, likely secondary to tachycardia 3. Leukocytosis A P Most likely due to dehydration given elevated WBC, Hgb, and Hct 4. Hypertension 5. Heart valve regurgitation A P unknown which valve 6. COPD (chronic obstructive pulmonary disease) Date of admission:Date of admission: 10/15/22Discharge date: 10/16/22Admission diagnosis:Atrial flutterDischarge diagnosis:Same as above problem listHospital course:72-year-old woman with hypertension, valvular heart disease, COPD who presented with 4 days of shortness of breath and palpitations. Symptoms were worse with exertion and improved with rest. She reported fatigue. Her blood pressure typically was normal at home but had been elevated since the onset of symptoms. She had been compliant with her blood pressure medications. She reported that 1 week prior to presentation she had her wisdom teeth extracted. The only new medication was 5 days ago prior to presentation she took post-op steroids prescribed by her dentist. She presented to her outpatient motor bus driver, Dr. Charles, and she was noted to be in atrial flutter. ECG on admission showed atrial flutter with 2:1 atrial ventricular conduction. CXR showed mild volume overload likely secondary to tachycardia. Patient underwent transesophageal echocardiogram which revealed no intracardiac thrombus. She underwent cardioversion without complication which resulted in return to sinus rhythm. Patient tolerated the procedure well. Patient was monitored and had complete resolution of symptoms. SGT6LS2-IZLf score is 3 (female and age). Patient prescribed metoprolol tartrate 50 mg every 12 hours and Eliquis 5 mg BID. Patient was discharged home in improved and stable condition. Consultants: cardiologyPt. condition on discharge: improved, stableAllergies:Allergies:Sulfa (Sulfonamide Antibiotics) (Coded, Intermediate, MIGRAINES, 10/16/22) Med Rec Med RecDischarge meds:Continue taking these medications:LOSARTAN (COZAAR) 50 MG TAB 50 MILLIGRAM ORAL DAILY. ALBUTEROL (PROAIR HFA 90 MCG/ACT 8.5 GM) 90 MCG INHALER 1 PUFF INHALATION RT - EVERY 4 HOURS NEEDED. as needed for DYSPNEA/WHEEZING Start taking the following new medications:METOPROLOL TARTRATE (LOPRESSOR) 50 MG TAB 50 MILLIGRAM ORAL EVERY 12 HOURS. Days = 30 Qty = 60 No Refills APIXABAN (ELIQUIS) 5 MG TAB 5 MILLIGRAM ORAL TWICE DAILY. Days = 30 Qty = 60 No Refills ObjectiveVS/I OLast Documented: Result Date Time Pulse Ox 92 10/16 1541 B/P 116/72 10/16 1541 B/P Mean 87.0 10/16 1541 Pulse 68 10/16 1541 Resp 17 10/16 1541 Temp 36.8 10/16 1103 O2 Delivery Room air 10/16 0441 24 hour I O ending at 0700: 10/16 0700 10/15 1900 Intake Total Output Total Balance Patient 59.545 kg Weight Weight Stated/Reported Measurement Method General appearance: alert, awake, orientedHead/Eyes: atraumatic, clear cornea, EOMIENT: moist mucosal membranes, normal ear left, normal ear right, normal noseNeck: full range of motion, non-tenderCardiovascular: normal capillary refill, normal heart sounds, regular rate rhythm, no murmurRespiratory: aerating well, clear to auscultation, symmetric expansion, no distressAbdomen: non-tender, soft, no distentionExtremities: moves all, no edemaMusculoskeletal: normal inspection, painless range of motionNeuro/TEST DESIGN ENGINEER: alert, oriented X 3, CNII-XII intact, no motor deficitsSkin: dry, normal color, no rashPsychiatry: normal affect, normal judgment/insight, normal mood ResultsFindings/Data:Laboratory Tests: 10/16 10/15 0457 1634 Chemistry Phosphorus (2.5 - 4.5 MG/DL) 3.8 TSH (0.465 - 4.68 MIU/L) 2.970 Urines Urine Color (YELLOW) YELLOW Urine Appearance (CLEAR) CLEAR Urine pH (5.0 - 9.0) 6.0 Ur Specific Ten Sleep (1.003 - 1.030) 1.015 Urine Protein (NEGATIVE MG/DL) NEGATIVE Urine Glucose (UA) (NORMAL MG/DL) NORMAL Urine Ketones (NEGATIVE MG/DL) NEGATIVE Urine Blood (NEGATIVE Saw/mm3) 25 H Urine Nitrite (NEGATIVE) NEGATIVE Urine Bilirubin (NEGATIVE MG/DL) NEGATIVE Urine Urobilinogen (NORMAL MG/DL) NORMAL Ur Leukocyte Esterase (NEGATIVE /mm3) NEGATIVE Urine RBC (0 - 3 RBC/HPF) 5-10 H Urine WBC (0 - 5 WBC/HPF) 0-3 Ur Epithelial Cells (FEW EPI/HPF) FEW Urine Bacteria (NONE) RARE Urine Culture Screen (Culture Chk Criteria) NO, WBC>10 EPI>25 Radiology data:Recent Impressions:RADIOLOGY - XR CHEST 1V 10/15 1720 Report Impression - Status: SIGNED Entered: 10/15/2022 174 IMPRESSION:Cardiomegaly with diffuse congestive changes bilaterally. Impression By: Nuzhat Ferraro MD Scores VLZ5JW0-AMLl EdzdnNCF7HG7-LGFm Score KSD2FE8-YYHq Score Response Value CHF: No 0 HTN: Yes 1 age greater than 75 years: No 0 age between 65 and 74 yrs: Yes 1 hx stroke, TIA, or TE: No 0 vascular disease: No 0 diabetes mellitus: No 0 female: Yes 1 Total 3 Discharge Instructions PCPPCP follow-up:PCP: No Primary or Family PhysicianDischarge to: Home/Self CareAdditional Discharge Routines: PCP Follow-Up, Mechanical Engineering Officer Follow-UpDiet: Resume Home Diet/Feeds, CardiacActivity: Resume Normal Activity, As ToleratedPrescriptions: e-prescribeDischarge management: less than 30 mins, face to face encounterTime spent: Time spent on patient care (minutes): 18 >50% spent on counseling/coordination of care: yes Follow-up AppointmentsPCP follow-up: PCP: No Primary or Family Physician PCP follow up timeframe: In 1-2 weeks Special instructions:Please call and schedule follow-up appt with your PCP.Consulting provider 1: Provider 1: Dev Charles MD Cardiology Specialty: CardiologyInterventional Consult follow up timeframe: In 1-2 weeks Special instructions:Please call for a follow-up appointment Quality: Discharge Advanced Care Plan 65 or OlderDiscussed with: patient (full code) Current MedicationsCurrent medication review:I attest that the foregoing medication list in the medical record is true, accurate, and complete to the best of my knowledge. AttestationsAttestation needed: supervising physician Lyle Schaefer 10/17/22 1356:Attestations Teaching Physician AttestationF/U visit w/ resident:I saw the patient with the resident and . . . agree with the resident's findings and plan. at 1630 at 1356 RPT #:[id number] OF REPORTDSDischarge bskcgji8160-38-47C64:15:00Z.JGCL36610606-5570ELAy ailable for patient guhvJIYRYTZZHVDYLA7453-89-54M09:30:38 [facility] 2022-10-16 10:20:00 [id number] h9WzqjmA8PV5ZsjUKIvo21rUZmCtG RCFe8aEAsg/F/DjihAwYesWtCAi8043-76-25W14:20:88635 5[address] [place] [address] PATIENT NAME: DERRICK LOOMIS ADMIT DATE: 10/15/22ACCOUNT NO: [id number] ROOM NO: [facility] AGE: 72 REPORT TYPE: CARDIAC CATHETERIZATION REPORT SEX: F ADMITTING PHYSICIAN:Lyle Schaefer MD ATTENDING PHYSICIAN:Lyle Schaefer MD PROCEDURE DATE: 10/16/2022 PREPROCEDURE DIAGNOSIS: Atrial flutter. POSTPROCEDURE DIAGNOSES: Atrial flutter. MEDICAL PARASITOLOGIST: Dave Lemon MD BAKERY ASSOCIATE: None. ANESTHESIA: Deep sedation with intravenous etomidate. PROCEDURE: Cardioversion. DESCRIPTION OF PROCEDURE: After informed consent was obtained explaining to thepatient risks, benefits and alternatives, following a transesophageal echocardiogram, which verified no intracardiac thrombus, single 50 joule biphasic synchronized shock was applied via anterior and apical defibrillation pads. This resulted in sinus rhythm. The patient tolerated the procedure well with no complications. CONCLUSION:1. Successful cardioversion.2. No complications. Dictated By: Dave Lemon MD Date Dictated: 10/16/2022 10:20:04Date Transcribed: 10/16/2022 11:27:31GSP/YACJob #: [id number] ID: [id number] CC:Dev Charles MD (F)Authenticated by Dave Lemon MD On 10/17/2022 06:29:38 PM at 0629 PATIENT NAME: DERRICK LOOMIS bllb6094-01-87W96:27:00Z.[id number] ble for patient hxnfMBJYISGZMBMOBQ6539-28-32V60:30:18 [facility] 2022-10-16 09:33:00 [id number] gHxTt+TTdXxyFjnMRh9MdmILZM/uD PvqsTHcbLJSx96NIsxVeLJD1I//8549-68-38F01:33:65220 5-[address] [address] PATIENT NAME: DERRICK LOOMIS ADMIT DATE: 10/15/22ACCOUNT NO: [id number] ROOM NO: [facility] AGE: 72 REPORT TYPE: ELECTROCARDIOGRAM SEX: F ADMITTING PHYSICIAN:Lyle Schaefer MD ATTENDING PHYSICIAN:Lyle Schaefer MD Order:[id number] Reason : POST CARDIOVERSION Test Date/Time Stamp:FriOct 16 2022 09:33:29Blood Pressure : / mmHGVent. Rate : 067 BPM Atrial Rate : 067 BPM P-R Int : 162 ms QRS Dur : 094 ms QT Int : 406 ms P-R-T Axes : 070 -56 077 degrees QTc Int : 429 ms Normal sinus rhythmLeft axis deviationNonspecific ST abnormalityAbnormal ECGWhen compared with ECG of 16-OCT-2022 08:49,Sinus rhythm has replaced Atrial flutterCriteria for Inferior-posterior infarct are no longer presentST no longer depressed in Inferior leadsNonspecific T wave abnormality no longer evident in Inferior leadsT wave inversion no longer evident in Anterolateral leadsConfirmed by DEV CHARLES ([id number]) on 10/16/2022 4:40:39 PM Referred By: Self Referred Confirmed by:DEV CHARLES at 1640 PATIENT NAME: DERRICK LOOMIS .[id number] AVAvailable for patient jvsbBFWMUTOYGSDSCO3352-95-76E82:41:09 [facility] 2022-10-16 08:49:00 [id number] yM98HI0S8rYj2EOhcv21RKjOHc1TO PRkC1yJM/JrUl9bSUSE0woYB9Ps9012-26-02S25:49:88908 5[address] [place] [address] PATIENT NAME: DERRICK LOOMIS ADMIT DATE: 10/15/22ACCOUNT NO: [id number] ROOM NO: [facility] AGE: 72 REPORT TYPE: ELECTROCARDIOGRAM SEX: F ADMITTING PHYSICIAN:Lyle Schaefer MD ATTENDING PHYSICIAN:Lyle Schaefer MD Order:[id number] Reason : PRE PROCEDURE AIXA Test Date/Time Stamp:FriOct 16 2022 08:49:50Blood Pressure : / mmHGVent. Rate : 077 BPM Atrial Rate : 293 BPM P-R Int : 000 ms QRS Dur : 092 ms QT Int : 368 ms P-R-T Axes : 028 -72 -28 degrees QTc Int : 416 ms Atrial flutter with variable AV blockLeft axis deviationInferior-posterior infarct , age undeterminedST and T wave abnormality, consider lateral ischemiaAbnormal ECGWhen compared with ECG of 16-OCT-2022 08:33,Significant changes have occurredConfirmed by DEV CHARLES ([id number]) on 10/16/2022 4:40:11 PM Referred By: Self Referred Confirmed by:DEV CHARLES at 1640 PATIENT NAME: DERRICK LOOMIS .[id number] AVAvailable for patient ambkMMYLTLXMOTALEB1285-85-70U98:40:49 [facility] 2022-10-16 06:57:00 [id number] 2jkdXHkLaQhSMm6pupHKYpq1kpKVk H/OL/V30qyPxmFJvqQIsNySgPjG9657-85-08A77:57:00 [facility]Hospitalist Progress NoteREPORT#:[id number] REPORT STATUS: SignedDATE:10/16/22 TIME: 06 PATIENT: DERRICK LOOMIS UNIT #: [id number]#: [id number] [facility] [birth year] AGE: 72 SEX: F ATTEND: Lyle Schaefer [facility] AUTHOR: Castillo Chao MD R3 * ALL edits or amendments must be made on the electronic/computer document * Castillo Chao 10/16/22 0657:SubjectiveChief complaint:PalpitationsHPI:Patient was seen and examined at bedside. Patient tolerated AIXA and cardioversion without issue and went back to sinus rhythm. Review of SystemsCardiovascular:Reports: palpitations. Denies: chest pain, DIAZ (dyspnea on exertion), edema, orthopnea, parox nocturnal dyspnea. All systems rev neg: except as noted Objective GeneralVS/I O:Vital Signs: Date Time Temp Pulse Resp B/P B/P Pulse O2 O2 Flow FiO2 Mean Ox Delivery Rate 10/16 0441 36.5 74 16 117/73 87.6 87 Room air 10/15 2335 36.7 76 16 121/75 90.4 90 Room air 10/15 1916 120 20 138/79 98 92 Room air 10/15 1736 141 24 108/83 93 10/15 1521 36.3 142 18 134/95 108 95 Room air 24 hour I O ending at 0700: 10/16 0700 03/14 1900 Intake Total Output Total Balance Patient 59.545 kg Weight Weight Stated/Reported Measurement Method PATIENT WEIGHT: Weight (lb): Weight (oz): Weight (kg): 59.545 Medications:Active Meds + DC'd Last 24 HrsDigoxin (LANOXIN) 0.25 MG Q6H IV (DC) Metoprolol Tartrate (LOPRESSOR) 25 MG Q12HR PO (CAN) Enoxaparin Sodium (LOVENOX) 60 MG 0600,1800 SUBQ Sodium Chloride (SODIUM CHLORIDE 0.9%) 250 ML BOLUS ONCE ONE IV (DC) Digoxin (LANOXIN) 0.5 MG NOW ONE IV (DC) Metoprolol Tartrate (LOPRESSOR) 50 MG Q12HR PO Acetaminophen (TYLENOL) 650 MG Q4H PRN PRN PO Hydralazine HCl (APRESOLINE) 10 MG Q4H PRN PRN IV Ondansetron HCl (ZOFRAN) 4 MG Q8H PRN PRN IV Metoprolol Tartrate (LOPRESSOR 5MG IJ) 5 MG ONCE ONE IV (DC) Physical ExamGeneral appearance: alert, awakeHead/Eyes: atraumatic, clear cornea, EOMIENT: moist mucosal membranes, normal ear left, normal ear right, normal noseNeck: full range of motion, non-tenderCardiovascular: normal capillary refill, normal heart sounds, regular rate rhythm, no murmurRespiratory: aerating well, clear to auscultation, symmetric expansion, no distressAbdomen: non-tender, soft, no distentionExtremities: moves all, no edemaMusculoskeletal: normal inspection, painless range of motionNeuro/TEST DESIGN ENGINEER: alert, oriented X 3, CNII-XII intact, no motor deficitsSkin: dry, normal color, no rashPsychiatry: normal affect, normal judgment/insight, normal mood ResultsFindings/Data:Laboratory Tests 10/16 10/15 0457 1545 Chemistry Sodium (137 - 145 MMOL/L) 142 Potassium (3.5 - 5.1 MMOL/L) 4.3 Chloride (98 - 107 MMOL/L) 109 H Carbon Dioxide (22 - 30 MMOL/L) 28 BUN (7 - 17 MG/DL) 20 H Creatinine (0.52 - 1.04 MG/DL) 0.90 Glomerular Filtr Rate > 60 Glucose (74 - 106 MG/DL) 92 Calcium (8.4 - 10.2 MG/DL) 9.3 Phosphorus (2.5 - 4.5 MG/DL) 3.8 Magnesium (1.6 - 2.3 MG/DL) 2.1 Total Bilirubin (0.2 - 1.3 MG/DL) 0.8 AST (14 - 36 UNITS/L) 28 ALT (0 - 34 UNITS/L) 32 Total Alk Phosphatase (38 - 126 UNITS/L) 87 Troponin I (0.012 - 0.033 NG/ML) 0.013 Total Protein (6.3 - 8.2 G/DL) 7.4 Albumin (3.5 - 5.0 G/DL) 4.1 TSH (0.465 - 4.68 MIU/L) 2.970 Laboratory Tests 10/15 1545 Hematology WBC (3.8 - 9.8 K/MM3) 11.6 H RBC (3.58 - 4.97 M/MM3) 5.25 H Hgb (11.2 - 14.9 G/DL) 15.8 H Hct (33.2 - 43.5 %) 47.6 H MCV (80.7 - 99.1 fL) 91 MCH (27.0 - 34.1 pg) 30.1 MCHC (32.2 - 35.7 %) 33.2 RDW (12.1 - 15.2 %) 13.1 Plt Count (129 - 368 K/MM3) 255 MPV (7.4 - 10.4 fl) 10.8 H Neut % (Auto) (43 - 75 %) 70.6 Lymph % (Auto) (14 - 44 %) 20.8 Caroline % (Auto) (4 - 13 %) 6.6 Eos % (Auto) (0 - 6 %) 1.1 Baso % (Auto) (0 - 2 %) 0.3 Neut # (Auto) (2.0 - 7.6 K/mm3) 8.15 H Lymph # (Auto) (1.0 - 3.8 K/mm3) 2.41 Caroline # (Auto) (0.1 - 0.8 K/mm3) 0.76 Eos # (Auto) (0.0 - 0.2 K/mm3) 0.13 Baso # (Auto) (0.0 - 0.2 K/mm3) 0.04 Immature Gran % (0.0 - 2.0 %) 0.6 Nucleated RBC % (0 - 1.0 %) 0.0 Nucleated RBCs # (Man) (0.0 - 0.1 K/mm3) 0.00 Laboratory Tests 10/15 1634 Urines Urine Color (YELLOW) YELLOW Urine Appearance (CLEAR) CLEAR Urine pH (5.0 - 9.0) 6.0 Ur Specific Ten Sleep (1.003 - 1.030) 1.015 Urine Protein (NEGATIVE MG/DL) NEGATIVE Urine Glucose (UA) (NORMAL MG/DL) NORMAL Urine Ketones (NEGATIVE MG/DL) NEGATIVE Urine Blood (NEGATIVE Saw/mm3) 25 H Urine Nitrite (NEGATIVE) NEGATIVE Urine Bilirubin (NEGATIVE MG/DL) NEGATIVE Urine Urobilinogen (NORMAL MG/DL) NORMAL Ur Leukocyte Esterase (NEGATIVE /mm3) NEGATIVE Urine RBC (0 - 3 RBC/HPF) 5-10 H Urine WBC (0 - 5 WBC/HPF) 0-3 Ur Epithelial Cells (FEW EPI/HPF) FEW Urine Bacteria (NONE) RARE Urine Culture Screen (Culture Chk Criteria) NO, WBC>10 EPI>25 Radiology data:Recent Impressions:RADIOLOGY - XR CHEST 1V 10/15 1720 Report Impression - Status: SIGNED Entered: 10/15/2022 1742 IMPRESSION:Cardiomegaly with diffuse congestive changes bilaterally. Impression By: Nuzhat - Ava Ferraro MD Diagnosis, Assessment PlanProblem List/A P: 1. Atrial flutter ECG with probable atrial flutter with 2:1 atrial ventricular conduction 2. Volume overload Mild, likely secondary to tachycardia 3. Leukocytosis Most likely due to dehydration given elevated WBC, Hgb, and Hct 4. Hypertension 5. Heart valve regurgitation unknown which valve 6. COPD (chronic obstructive pulmonary disease) Consultants: cardiology Free Text DxA P NotesFree text DxA P notes:72 year old woman with HTN, COPD, heart valve regurgitation who presents with 4 day history of palpitations and band-like discomfort in her left chest and was found to have atrial fibrillation with RVR. Unclear trigger but post-op steroidsmay be contributory. PTZE9FEQZ is 3. 3Admit to observationElectrophysiology consult (Dr. Lemon), appreciate recsTelemetry monitoringPlan for cardioversionNPO excepting for meds pending procedureIf BP remains elevated, will restart losartanTrend troponins 10/16/2022TEE and cardioversion today with return to sinus rhythmBPs have been stable with improved HRStart cardiac dietTroponin was negative Diet: cardiacDVT ppx: SCDsFull code NOK: Giuliana Loomis (daughter), Quality: Gen Med Crit Care VTE ProphylaxisVTE prophylaxis initiated: yes (mechanical comp device) Current MedicationsCurrent medication review:I attest that the foregoing medication list in the medical record is true, accurate, and complete to the best of my knowledge. Advanced Care Plan 65 or OlderDiscussed with: patient (full code) AttestationsAttestation needed: supervising physician Lyle Schaefer 10/16/22 1326:Quality: Gen Med Crit Care Advanced Care Plan 65 or OlderDiscussion included: code status Attestations Teaching Physician AttestationF/U visit w/ resident:I saw the patient with the resident and . . . agree with the resident's findings and plan. Pt seen after procedure, cardioverted after AIXA on SR at 1309 at 1327 RPT #:[id number] OF REPORTPRProgress eghe5117-61-58M32:57:00Z.LHQA37592413-3849AQMbnny able for patient rptqTNCCSBFAADISEM2590-13-22J54:09:34 [facility] 2022-10-16 06:00:00 [id number]+m Y/1c4Apdmy1V+Lnb/GisiTm4yxG5F dQU5YoYGSabGwNTy5qSPBkK8ZU24103-20-93T90:00:26963 5-[address] [address] PATIENT NAME: DERRICK LOOMIS ADMIT DATE: 10/15/22ACCOUNT NO: [id number] ROOM NO: Z.430 AGE: 72 REPORT TYPE: ELECTROCARDIOGRAM SEX: F ADMITTING PHYSICIAN:Lyle Schaefer MD ATTENDING PHYSICIAN:Lyle Schaefer MD Order:[id number] Reason : AFlutter Test Date/Time Stamp:FriOct 16 2022 06:00:00Blood Pressure : / mmHGVent. Rate : 068 BPM Atrial Rate : 068 BPM P-R Int : 272 ms QRS Dur : 094 ms QT Int : 372 ms P-R-T Axes : 077 -54 059 degrees QTc Int : 395 ms Atrial flutter with variable AV blockLeft axis deviationIncomplete right bundle branch blockNonspecific ST and T wave abnormalityAbnormal ECGWhen compared with ECG of 15-OCT-2022 20:21,Left anterior fascicular block is no longer presentIncomplete right bundle branch block is now presentConfirmed by DEV CHARLES ([id number]) on 10/16/2022 7:09:39 AM Referred By: Self Referred Confirmed by:DEV CHARLES at 0709 PATIENT NAME: DERRICK LOOMIS .[id number] AVAvailable for patient yghvCHZFKNYPHRUEME8129-35-57G59:10:12 [facility] 2022-10-16 06:00:00 [id number] r6wItVFYXQ02TGlkpcnh+AdJLKzde Xv1wuGCcXgnECNlydONN5bvOKVv9169-48-32S98:00:00 [facility] ([facility]ENTERCardiology Progress NoteREPORT#:[id number] REPORT STATUS: SignedDATE:10/16/22 TIME: 0600 PATIENT: DERRICK LOOMIS UNIT #: [id number]#: [id number] ROOM/BED: [facility]-ADOB: [birth year] AGE: 72 SEX: F ATTEND: Lyle Schaefer AUTHOR: Dave Lemon MD * ALL edits or amendments must be made on the electronic/computer document * SubjectiveChief complaint:Atrial FlutterPatient reports:No: chest pain, palpitations, shortness of breath. Objective GeneralVS/I O:24 hour I O ending at 0700: 10/16 0700 10/15 1900 Intake Total Output Total Balance Patient 59.545 kg Weight Weight Stated/Reported Measurement Method Vital Signs: Date Time Temp Pulse Resp B/P B/P Pulse O2 O2 Flow FiO2 Mean Ox Delivery Rate 10/16 0441 97.7 74 16 117/73 87.6 87 Room air 10/15 2335 98.1 76 16 121/75 90.4 90 Room air 10/15 1916 120 20 138/79 98 92 Room air 10/15 1736 141 24 108/83 93 10/15 1521 97.4 142 18 134/95 108 95 Room air PATIENT WEIGHT: Weight (lb): Weight (oz): Weight (kg): 59.545 Medications:Active Meds + DC'd Last 24 HrsDigoxin (LANOXIN) 0.25 MG Q6H IV (DC) Metoprolol Tartrate (LOPRESSOR) 25 MG Q12HR PO (CAN) Enoxaparin Sodium (LOVENOX) 60 MG 0600,1800 SUBQ Sodium Chloride (SODIUM CHLORIDE 0.9%) 250 ML BOLUS ONCE ONE IV (DC) Digoxin (LANOXIN) 0.5 MG NOW ONE IV (DC) Metoprolol Tartrate (LOPRESSOR) 50 MG Q12HR PO Acetaminophen (TYLENOL) 650 MG Q4H PRN PRN PO Hydralazine HCl (APRESOLINE) 10 MG Q4H PRN PRN IV Ondansetron HCl (ZOFRAN) 4 MG Q8H PRN PRN IV Metoprolol Tartrate (LOPRESSOR 5MG IJ) 5 MG ONCE ONE IV (DC) Physical ExamGeneral appearance: alert, awake, orientedHead/Eyes: atraumatic, normocephalicNeck: no JVDCardiovascular: CV assessment: regular rate and rhythmRespiratory: clear to auscultation, no distressLower extremity: LE assessment: no edemaMusculoskeletal: full range of motionNeuro/TEST DESIGN ENGINEER: alert, oriented X 3, CN II-XII intactSkin: dry, intactPsychiatry: normal affect, normal judgment/insight, normal mood ResultsFindings/Data:Laboratory Tests 10/15 1545 Chemistry Sodium (137 - 145 MMOL/L) 142 Potassium (3.5 - 5.1 MMOL/L) 4.3 Chloride (98 - 107 MMOL/L) 109 H Carbon Dioxide (22 - 30 MMOL/L) 28 BUN (7 - 17 MG/DL) 20 H Creatinine (0.52 - 1.04 MG/DL) 0.90 Glomerular Filtr Rate > 60 Glucose (74 - 106 MG/DL) 92 Calcium (8.4 - 10.2 MG/DL) 9.3 Magnesium (1.6 - 2.3 MG/DL) 2.1 Total Bilirubin (0.2 - 1.3 MG/DL) 0.8 AST (14 - 36 UNITS/L) 28 ALT (0 - 34 UNITS/L) 32 Total Alk Phosphatase (38 - 126 UNITS/L) 87 Troponin I (0.012 - 0.033 NG/ML) 0.013 Total Protein (6.3 - 8.2 G/DL) 7.4 Albumin (3.5 - 5.0 G/DL) 4.1 Laboratory Tests 10/15 1545 Hematology WBC (3.8 - 9.8 K/MM3) 11.6 H RBC (3.58 - 4.97 M/MM3) 5.25 H Hgb (11.2 - 14.9 G/DL) 15.8 H Hct (33.2 - 43.5 %) 47.6 H MCV (80.7 - 99.1 fL) 91 MCH (27.0 - 34.1 pg) 30.1 MCHC (32.2 - 35.7 %) 33.2 RDW (12.1 - 15.2 %) 13.1 Plt Count (129 - 368 K/MM3) 255 MPV (7.4 - 10.4 fl) 10.8 H Neut % (Auto) (43 - 75 %) 70.6 Lymph % (Auto) (14 - 44 %) 20.8 Caroline % (Auto) (4 - 13 %) 6.6 Eos % (Auto) (0 - 6 %) 1.1 Baso % (Auto) (0 - 2 %) 0.3 Neut # (Auto) (2.0 - 7.6 K/mm3) 8.15 H Lymph # (Auto) (1.0 - 3.8 K/mm3) 2.41 Caroline # (Auto) (0.1 - 0.8 K/mm3) 0.76 Eos # (Auto) (0.0 - 0.2 K/mm3) 0.13 Baso # (Auto) (0.0 - 0.2 K/mm3) 0.04 Immature Gran % (0.0 - 2.0 %) 0.6 Nucleated RBC % (0 - 1.0 %) 0.0 Nucleated RBCs # (Man) (0.0 - 0.1 K/mm3) 0.00 Laboratory Tests 10/15 1634 Urines Urine Color (YELLOW) YELLOW Urine Appearance (CLEAR) CLEAR Urine pH (5.0 - 9.0) 6.0 Ur Specific Ten Sleep (1.003 - 1.030) 1.015 Urine Protein (NEGATIVE MG/DL) NEGATIVE Urine Glucose (UA) (NORMAL MG/DL) NORMAL Urine Ketones (NEGATIVE MG/DL) NEGATIVE Urine Blood (NEGATIVE Saw/mm3) 25 H Urine Nitrite (NEGATIVE) NEGATIVE Urine Bilirubin (NEGATIVE MG/DL) NEGATIVE Urine Urobilinogen (NORMAL MG/DL) NORMAL Ur Leukocyte Esterase (NEGATIVE /mm3) NEGATIVE Urine RBC (0 - 3 RBC/HPF) 5-10 H Urine WBC (0 - 5 WBC/HPF) 0-3 Ur Epithelial Cells (FEW EPI/HPF) FEW Urine Bacteria (NONE) RARE Urine Culture Screen (Culture Chk Criteria) NO, WBC>10 EPI>25 Laboratory Tests 10/15 1545 Chemistry Magnesium (1.6 - 2.3 MG/DL) 2.1 Troponin I (0.012 - 0.033 NG/ML) 0.013 Radiology data:Recent Impressions:RADIOLOGY - XR CHEST 1V 10/15 1720 Report Impression - Status: SIGNED Entered: 10/15/2022 1742 IMPRESSION:Cardiomegaly with diffuse congestive changes bilaterally. Impression By: Nuzhat - Ava Ferraro MD Diagnosis, Assessment PlanHospital course to date:IMP: Atrial Flutter PLAN: AIXA/cardioversion. Procedure, risks discussed. All questions answered, and she elects to proceed. at 1016 [facility] #:[id number] OF REPORTPRProgress ekjz9438-03-22U86:00:00Z.[id number] able for patient xmleNYPGDWSITQMLLZ3461-93-55S06:16:25 [facility] 2022-10-15 20:21:00 [id number] 13NQqk/Carpenter Assistant Installer/5lo1VMDqQaCQXFb1YZy 6mgI7PSj+RcB2Srv3hf9U1hOOeU2006-96-94X26:21:99403 5-[address] [address] PATIENT NAME: DERRICK LOOMIS ADMIT DATE: 10/15/22ACCOUNT NO: [id number] ROOM NO: Z.430 AGE: 72 REPORT TYPE: ELECTROCARDIOGRAM SEX: F ADMITTING PHYSICIAN:Lyle Schaefer MD ATTENDING PHYSICIAN:Lyle Schaefer MD Order:[id number] Reason : AFlutter Test Date/Time Stamp:FriOct 15 2022 20:21:44Blood Pressure : / mmHGVent. Rate : 090 BPM Atrial Rate : 270 BPM P-R Int : 000 ms QRS Dur : 094 ms QT Int : 352 ms P-R-T Axes : 000 -64 054 degrees QTc Int : 430 ms Atrial flutter with variable AV blockLeft anterior fascicular blockNonspecific ST abnormalityAbnormal ECGNo previous ECGs availableConfirmed by DEV CHARLES ([id number]) on 10/16/2022 7:08:37 AM Referred By: Self Referred Confirmed by:DEV CHARLES at 0708 PATIENT NAME: DERRICK LOOMIS .[id number] AVAvailable for patient xmfyTARNPFUSEAMBCW1528-85-19W10:09:02 [facility] 2022-10-15 18:35:00 [id number] 0oppP0okiUFHIzelVkdZtfvRVMRTW Y8JTFEgE0qcG43kzps5mdCETHkK3605-42-57U71:35:08752 [phone] [address] PATIENT NAME: DERRICK LOOMIS ADMIT DATE: 10/15/22ACCOUNT NO: [id number] ROOM NO: [facility] AGE: 72 REPORT TYPE: CONSULTATION REPORT SEX: F ADMITTING PHYSICIAN:Lyle Schaefer MD ATTENDING PHYSICIAN:Lyle Schaefer MD CONSULTATION DATE: 10/15/2022 REFERRING PHYSICIAN: Dr. Schaefer. REASON FOR CONSULTATION: I was asked to evaluate this patient for atrial flutter. HISTORY OF PRESENT ILLNESS: This is a 72-year-old female with history of hypertension, valvular heart disease, COPD, who developed shortness of breath and weakness over the past 5 days. She was out working when she noticed a decrease in stamina and increasing shortness of breath with exertion. She had been treated with steroids for dental work prior to the presentation of her symptoms. She presented to Dr. Charles's outpatient clinic and was noted to be in atrial flutter. She was advised to present to the Emergency Room. Currently,no chest pain. She has no complaints of resting shortness of breath. PAST MEDICAL HISTORY: Hypertension, valvular heart disease, COPD, nephrolithiasis. PAST SURGICAL HISTORY: Status post hysterectomy, status post wisdom tooth extraction. FAMILY HISTORY: No family history of heart disease. SOCIAL HISTORY: Occasional alcohol. Former smoker. Quit smoking iwjlyzerietih34 years ago. HOME MEDICATIONS: Losartan, albuterol, magnesium, inhaler. ALLERGIES: SULFA. REVIEW OF SYSTEMS:CONSTITUTIONAL: No complaints of fever or chills.ENMT: No complaints of headache.EYES: No complaints of blurred vision.RESPIRATORY: Dyspnea with exertion.CARDIOVASCULAR: Palpitations.GASTROINTESTINAL: No complaints of nausea or vomiting.GENITOURINARY: No complaints of urinary frequency or dysuria.MUSCULOSKELETAL: No complaints of joint pain.SKIN: No complaints of skin rash.NEUROLOGIC: No complaints of focal weakness. PATIENT NAME: DERRICK LOOMIS PHYSICAL EXAMINATION:GENERAL: Well-nourished female in no acute distress.VITAL SIGNS: Temperature 97.4, blood pressure 108/83, pulse 141, respiratory rate 24, O2 saturations 93%.ENMT: Atraumatic, normocephalic.RESPIRATORY: Normal effort.CHEST: Clear to auscultation bilaterally.CARDIOVASCULAR: Tachycardic, regular S1 and S2. No S3 or S4.NECK: JVP is normal. There are no carotid bruits.EXTREMITIES: No edema.NEUROLOGIC: Cranial nerves II-XII are intact. No focal motor deficits noted. LABORATORY DATA: White blood cell count 11.6, hemoglobin 15.8, platelets 255. Sodium 142, potassium 4.3, chloride 109, CO2 of 28, BUN 20, creatinine 0.9, glucose 92, calcium 9.3, magnesium 2.1. Chest x-ray, cardiomegaly with diffuse congestive changes bilaterally. Electrocardiogram shows probable atrial flutter with 2:1 atrial ventricular conduction. IMPRESSION:1. Atrial flutter with 2:1 atrial ventricular conduction.2. Mild volume overload, likely secondary to tachycardia.3. History of hypertension. RECOMMENDATIONS:1. We will add digoxin and metoprolol.2. We will plan AIXA cardioversion in the a.m.3. We will give a dose of Lovenox tonight.4. 2D echo. Dictated By: Dave Lemon MD Date Dictated: 10/15/2022 18:35:39Date Transcribed: 10/15/2022 21:26:02WILLIS/Shirin #: [id number] ID: [id number] CC:Dev Charles MD (F)Authenticated by Dave Lemon MD On 10/16/2022 10:31:58 AM at 1031 PATIENT NAME: DERRICK LOOMIS :26:00Z.[place] [id number] for patient bektQAEOXIOIUVAZOM7652-37-79S79:32:36 [facility] 17:15:00 [id number]+Z P0PjxXfmOBrDHPFvrCi8vndNwTTq2 WPiASTSq/bsQM1QpaheGraW5+Pt4983-17-05X57:15:[address] [address] PATIENT NAME: DERRICK LOOMIS ADMIT DATE: 10/15/22ACCOUNT NO: [id number] ROOM NO: Z.430 AGE: 72 REPORT TYPE: ELECTROCARDIOGRAM SEX: F ADMITTING PHYSICIAN:Lyle Schaefer MD ATTENDING PHYSICIAN:Lyle Schaefer MD Order:[id number] Reason : Test Date/Time Stamp:FriOct 15 2022 17:15:37Blood Pressure : / mmHGVent. Rate : 139 BPM Atrial Rate : 278 BPM P-R Int : 000 ms QRS Dur : 098 ms QT Int : 288 ms P-R-T Axes : 255 -60 018 degrees QTc Int : 438 ms Atrial flutter with 2:1 AV conductionRSR' or QR pattern in V1 suggests right ventricular conduction delayLeft anterior fascicular blockLateral infarct , age undeterminedInferior-posterior infarct , age undeterminedAbnormal ECGNo previous ECGs availableConfirmed by DEV CHARLES ([id number]) on 10/16/2022 4:39:38 PM Referred By: Lyle Schaefer Confirmed by:DEV CHARLES at 1639 PATIENT NAME: DERRICK LOOMIS .[id number] AVAvailable for patient dhomRJGQBQVSZGQNGS3281-01-82T44:40:49 [facility] 2022-10-15 16:07:00 [id number] QHpcd4Wzs5hMf4jmU6Oh2GaRLRUmT cqp5enJq0oDfgr/1ntWAK4s2rSz8807-17-20J56:07:00 [facility] ([facility])EMERGENCY PROVIDER REPORTREPORT#:[id number] REPORT STATUS: SignedDATE:10/15/22 TIME: 1607 PATIENT: DERRICK LOOMIS UNIT #: [id number]#: [id number] ROOM/BED: [facility]-AAGE: 72 SEX: F PCP PHYS: No Primary or Family PhysicianSERVICE AUTHOR: Adithya Ruiz DO R1 LOCATION: [facility] * ALL edits or amendments must be made on the electronic/computer document * JosephAdithya 10/15/22 1607:HPI-Palpit/Arrhyth Free Text HPI NotesFree Text HPI NotesPt is a 72 YO F w/ PMH of COPD (does not need supplemental O2), unknown arrhythmia, and regurgitation of unknown valve who presents to the ED per recommendation of Dr. Charles for evaluation by Dr. Lemon for symptomatic A-fibw/ RVR. Pt states she started feeling SOB w/ a band-like cramping across her chest around midnight on Friday. Pt also endorses intermittent palpitations. Thepatient's smart watch started to alert her of a high heart rate. The patient continued to feel these symptoms over the weekend w/ DIAZ walking short distances. Pt endorses the symptoms worsen w/ activity. The patient tried ibuprofen and lidocaine patches for the pain which provided little relief. The band-like chest pain does not radiate. The patient was evaluate by Dr. Charles in the office earlier today who recommended the pt be evaluated here. Pt continues to feel SOB, DIAZ, w/ band-like chest pain, and generalized fatigue. Ptdenies LACY, LOC, lightheadedness, dizziness, N/V, abd pain. Pt denies PMH of SD or stroke. GeneralInitial Greet Date/Time 10/15/22 1541 PresentationChief Complaint Arrhythmia, Chest pain, Palpitations, Shortness of breath Risk-Palpit/Arrhyth Risk StratificationHEART for MACE HEART for MACE Response Value History Low index of suspicion 0 ECG Interpretation Nonspec repol disturb 1 Age Age 65 or over 2 Risk Factors for CAD 1-2 CAD risk factors 1 Troponin < or = to NL troponin 0 Total 4 HEART Score for MACE 4-7 (mod risk 12%-16.6%)RKF5GX6-RUOt Score HKE4RT0-NDLk Score Response Value CHF: No 0 HTN: No 0 age greater than 75 years: No 0 age between 65 and 74 yrs: Yes 1 hx stroke, TIA, or TE: No 0 vascular disease: No 0 diabetes mellitus: No 0 female: Yes 1 Total 2 DSM7OT8-HGYr Interpretation >1, rec OAC Review of Systems ROS StatementsAll systems rev neg except as marked. Basic Review of SystemsBasic ROS EYES: No redness, : No dysuria/frequency, MS: No ext swelling/pain, HEM: No bleeding/bruising Focused Review of SystemsConstitutionalReports: Fatigue, Weakness - generalized. Denies: Chills, Fever. Ears/Nose/ThroatDenies: Throat pain, Throat swelling, Tongue pain. RespiratoryReports: Dyspnea on exertion, Shortness of breath. Denies: Cough, non-productive, Cough, productive, Pleuritic pain. CardiovascularReports: Chest pain, Dyspnea on exertion, Palpitations. Denies: Syncope. GIDenies: Abdominal pain, Nausea, Vomiting. NeurologicReports: Generalized weakness. Denies: Change LOC, Confusion, Dizziness, Focal weakness, Headache, Lightheaded, Syncope, Unable to speak, Vision change. Past Medical History - AdultStated Complaint A FLUTTERBland MedicationsReported MedicationsLOSARTAN (COZAAR) 50 MG PO DAILY ALBUTEROL (PROAIR HFA 90 MCG/ACT 8.5 GM) 1 PUFF INH RTQ4H PRN PRN DYSPNEA/WHEEZING Calculated Suicide Risk (nurs) No riskAdditional Medical HistoryCOPD, unknown arrhythmia, and regurgitation of unknown valveAdditional Surgical Historyhysterectomy, right ankle surgey, wisdom teeth removal, skin cancer removal on nose (not melenoma), kidney stone removalAdditional Family Historydaughter - strokeAlcohol Use Alcohol use (2-3x/mo)Drug Use Denies recreational drugsSmoking status for patients 13 years old or older: Former SmokerDate last smoked: 10/15/Packs per day: 1Years smoked: 30Pack years: 30 Physical Exam Vital SignsReview of Vital Signs Reviewed Basic Physical ExamBasic PE HEAD: Atraumatic/NC, EYES: PERRL, conj clear, ENT: Membranes moist, NECK: Supple, ABD: Soft/non-tender, EXT: No gross abnormality, SKIN: No rashes, warm/dry, NEURO: alert oriented, NEURO: gross movement NL, PSYCH: NL thought content Focused PEGeneral/Const General/Const Awake, Alert, No acute distressMS Head Head Atraumatic, NormocephalicEyes Eyes Atraumatic, EOMI, No periorbital swellingEars/Nose/Throat Ears/Nose/Throat Atraumatic, Airway patentMS Neck Neck Atraumatic, Full range of motionResp/Chest Respiratory/Chest Breath sounds NL, Breath sounds = bilat, No respiratory distressCardiovascular Heart Rate/Rhythm Tachycardia, Irreg irregular rhythm (w/ RVR). Abdomen/GI Abdomen/GI Soft, Non-tender, No guardingMS Lower Extrem Lower Ext/Pelvis/MS No swelling, Non-tenderSkin Skin Warm, DryNeurologic Neurologic Oriented X3, Speech NL, No motor deficits, No sensory deficits Interpretation Diagnostics Lab Results InterpretationResultsFindings/Data:Laboratory Tests: 10/15 10/15 1634 1545 Chemistry Sodium (137 - 145 MMOL/L) 142 Potassium (3.5 - 5.1 MMOL/L) 4.3 Chloride (98 - 107 MMOL/L) 109 H Carbon Dioxide (22 - 30 MMOL/L) 28 BUN (7 - 17 MG/DL) 20 H Creatinine (0.52 - 1.04 MG/DL) 0.90 Glomerular Filtr Rate > 60 Glucose (74 - 106 MG/DL) 92 Calcium (8.4 - 10.2 MG/DL) 9.3 Magnesium (1.6 - 2.3 MG/DL) 2.1 Total Bilirubin (0.2 - 1.3 MG/DL) 0.8 AST (14 - 36 UNITS/L) 28 ALT (0 - 34 UNITS/L) 32 Total Alk Phosphatase (38 - 126 UNITS/L) 87 Total Protein (6.3 - 8.2 G/DL) 7.4 Albumin (3.5 - 5.0 G/DL) 4.1 Hematology WBC (3.8 - 9.8 K/MM3) 11.6 H RBC (3.58 - 4.97 M/MM3) 5.25 H Hgb (11.2 - 14.9 G/DL) 15.8 H Hct (33.2 - 43.5 %) 47.6 H MCV (80.7 - 99.1 fL) 91 MCH (27.0 - 34.1 pg) 30.1 MCHC (32.2 - 35.7 %) 33.2 RDW (12.1 - 15.2 %) 13.1 Plt Count (129 - 368 K/MM3) 255 MPV (7.4 - 10.4 fl) 10.8 H Neut % (Auto) (43 - 75 %) 70.6 Lymph % (Auto) (14 - 44 %) 20.8 Caroline % (Auto) (4 - 13 %) 6.6 Eos % (Auto) (0 - 6 %) 1.1 Baso % (Auto) (0 - 2 %) 0.3 Neut # (Auto) (2.0 - 7.6 K/mm3) 8.15 H Lymph # (Auto) (1.0 - 3.8 K/mm3) 2.41 Caroline # (Auto) (0.1 - 0.8 K/mm3) 0.76 Eos # (Auto) (0.0 - 0.2 K/mm3) 0.13 Baso # (Auto) (0.0 - 0.2 K/mm3) 0.04 Immature Gran % (0.0 - 2.0 %) 0.6 Nucleated RBC % (0 - 1.0 %) 0.0 Nucleated RBCs # (Man) (0.0 - 0.1 K/mm3) 0.00 Urines Urine Color (YELLOW) YELLOW Urine Appearance (CLEAR) CLEAR Urine pH (5.0 - 9.0) 6.0 Ur Specific Ten Sleep (1.003 - 1.030) 1.015 Urine Protein (NEGATIVE MG/DL) NEGATIVE Urine Glucose (UA) (NORMAL MG/DL) NORMAL Urine Ketones (NEGATIVE MG/DL) NEGATIVE Urine Blood (NEGATIVE Saw/mm3) 25 H Urine Nitrite (NEGATIVE) NEGATIVE Urine Bilirubin (NEGATIVE MG/DL) NEGATIVE Urine Urobilinogen (NORMAL MG/DL) NORMAL Ur Leukocyte Esterase (NEGATIVE /mm3) NEGATIVE Urine RBC (0 - 3 RBC/HPF) 5-10 H Urine WBC (0 - 5 WBC/HPF) 0-3 Ur Epithelial Cells (FEW EPI/HPF) FEW Urine Bacteria (NONE) RARE Urine Culture Screen (Culture Chk Criteria) NO, WBC>10 EPI>25 Laboratory Tests 10/15/22 1545:[Embedded Image Not Available] Lab StatementLab studies reviewed and considered in the medical decision-making. Point of Care TestingPulse Oximetry Pulse Ox % 95 On: Room air Interpretation Interpreted by me, Pulse oximetry normal Time 1521 ECG #1 InterpretationText/Dict NoteA flutter w/ 2:1 AV conduction. VR 139 bpm. QRS 98ms. QT/QTc 288/438. No STEMI. Date 10/15/22Time 1715Interpreted by and reviewed by me Re-Evaluation MDM Free Text MDM NotesFree Text MDM NotesPt is a 72 YO F w/ PMH of COPD (does not need supplemental O2), unknown arrhythmia, and regurgitation of unknown valve who presents to the ED per recommendation of Dr. Charles for evaluation by Dr. Lemon for symptomatic A-fibw/ RVR. On exam, pt is in A-fib RVR w/ HR 144 BP 150/100. CBC significant for leukocytosis, erythrocytosis. CMP significant for Cl 109, BUN 20. Tropinin WNL. UA shows blood but not indicative of UTI. Pt will be admitted under [facility] hospitalist team w/ consult to Dr. Lemon. Discussed case w/ Dr. Lemon at bedside. Dr. Lemon to plan cardioversion w/ AIXA tomorrow morning. Pt is to be NPO after midnight. Patient Discharge Departure Discharge/Care PlanCounseled Regarding Diagnosis, Lab results, Need for admission Admit NoteI have spoken with the patient and/or caregivers. I have explained the patient'scondition, diagnoses and treatment plan based on the information available to meat this time. I have answered the patient's and/or caregiver's questions and addressed any concerns. The patient and/or caregivers have as good an understanding of the patient's diagnosis, condition and treatment plan as can beexpected at this point. The patient has been stabilized within the capability ofthe emergency department. The patient will be transported for further care and management or will be moved to an observation or inpatient service. I have communicated with the staff or medical practitioner taking over this patient's care. Mikey Thompson 10/15/22 1609:Past Medical History - AdultAllergiesCoded Allergies:Sulfa (Sulfonamide Antibiotics) (Intermediate, MIGRAINES 10/16/22) Physical Exam Vital SignsVital SignsFirst Documented: Result Date Time Pulse Ox 95 10/15 1521 B/P 134/95 10/15 1521 B/P Mean 108 10/15 1521 O2 Delivery Room air 10/15 1521 Temp 97.4 10/15 1521 Pulse 142 10/15 1521 Resp 18 10/15 1521 Last Documented: Result Date Time Pulse Ox 95 / 1521 B/P 134/95 / 1521 B/P Mean 108 /14 1521 O2 Delivery Room air 10/15 1521 Temp 97.4 /14 1521 Pulse 142 03/14 1521 Resp 18 10/15 1521 Patient Discharge Departure Vital Signs/ConditionVital SignsFirst Documented: Result Date Time Pulse Ox 95 / 1521 B/P 134/95 03/14 1521 B/P Mean 108 03/14 1521 O2 Delivery Room air 10/15 1521 Temp 97.4 / 1521 Pulse 142 03/14 1521 Resp 18 10/15 1521 Last Documented: Result Date Time Pulse Ox 95 10/15 1521 B/P 134/95 / 1521 B/P Mean 108 /14 1521 O2 Delivery Room air 10/15 1521 Temp 97.4 14 1521 Pulse 142 10/15 1521 Resp 18 10/15 1521 All vital signs available at the time of this entry have been reviewed. Clinical ImpressionClinical ImpressionPrimary Impression: New onset a-fibSecondary Impressions: Atrial fibrillation with RVR Disposition DecisionAdmit Admit Physician Name Lyle Schaefer MD Admit Physician Hospitalist Request Time 1609 Request Date 10/15/22 )( Admission Accepts Yes )( Accepted Time 1609 )( Accepted Date 10/15/22 Call Information will see patient, agrees with eval, agrees with plan Critical CareTime Spent (minutes): 45Services Performed Patient management by me, Time spent at bedside, Reviewing test results, Reviewing imaging, Discussing patient care, Documentation in record, Time with fam/surrogateSeparately billable procedures excluded from time.Patient was critically ill due to:new onset a fib with RVRMy treatment and management were:lopressor iV, digoxcin IV, discussions with multiple medical providers, including admission orders Supervising Physician Note Resident Saw PtThis patient was seen by a resident. I have personally seen the patient, performed the critical or mckeon portions of the service, and participated in the management of the patient. I have reviewed and agree with the resident's note, and I have reviewed all labs, ECGs, and imaging studies or reports. I agree withthis resident's findings, exam and plan. at 1746 at 1331RPT #:[id number] OF REPORTEDBaystate Wing Hospitalrdelta [facility] department [id number]:07:00Z.[id number] ilable for patient [id number]:46:34 [facility] 2022-10-15 15:41:00 [id number]+[id number]:41:00 [facility] ([facility])Hospitalist History PhysicalREPORT#:[id number] REPORT STATUS: SignedDATE:10/15/22 TIME: 154 PATIENT: DERRICK LOOMIS UNIT #: [id number]#: [id number] ROOM/BED: [facility]-ADOB: [birth year] AGE: 72 SEX: F ATTEND: Lyle Schaefer [facility] AUTHOR: Castillo Chao MD R3 * ALL edits or amendments must be made on the electronic/computer document * Castillo Chao 10/15/22 1541:History of Present Illness HPIChief complaint:PalpitationsPCP:PCP: No Primary or Family PhysicianHPI:72 year old woman with HTN, COPD, heart valuve regurgitation who presents with 4day history of palpitations and band-like discomfort in her left chest. She wokeup with the palpitations and they have been intermittent. Symptoms are worse with exertion and improved with rest. Her blood pressure typically is normal at home but has been elevated since the onset of symptoms. She has been compliant with her blood pressure medications. Associated symptoms include generalized fatigue. About 12 hours after onset of symptoms her [employer] smart watch alerted her that her HR was in the 140s. She presented to her outpatient motor bus driver, Dr. Charles, who diagnosed her with atrial fibrillation with RVR and instructed her to come to the hospital. She reports that 1 week ago she had her wisdom teeth extracted. The only new medication was 5 days ago she took post-op steroids prescribed by her dentistInformant/historian: patient, family/other at bedside History Past Medical Surgical HxPatient History: 1. S/P hysterectomy 2. S/P wisdom tooth extraction 3. Nephrolithiasis 4. Hypertension 5. Heart valve regurgitation 6. COPD (chronic obstructive pulmonary disease) Family HistoryFamily history:Denies: Diabetes, Heart disease, Hypertension. Social HistoryAlcohol use: Alcohol use (2-3x/month, 1-2 drinks), In recoveryDrug use: Denies recreational drugsSmoking status for patients 13 years old or older: Former Smoker (quit in 2012)Packs per day: 1Years smoked: 30Pack years: 30Other social history: Retired, Good social support, [place] in [place] Medication/Allergy-Vaccine HxMedications:Home Medications:LOSARTAN (COZAAR) 50 MG PO DAILY ALBUTEROL (PROAIR HFA 90 MCG/ACT 8.5 GM) 1 PUFF INH RTQ4H PRN PRN DYSPNEA/WHEEZING Maintenance inhaler daily (couldn't recall name)Magnesium daily (couldn't recall dose) Review of SystemsConstitutional:Reports: fatigue, generalized weakness. Denies: chills, fever. Skin:Denies: itching, laceration, rash. Allergy/Immun:Denies: itching, rhinorrhea, sneezing. Eyes:Denies: diplopia, eye pain, photophobia. ENT:Denies: nasal congestion, sinus problem, sore throat. Respiratory:Reports: SOB. Denies: DIAZ (dyspnea on exertion), productive cough (sputum). Cardiovascular:Reports: palpitations. Denies: chest pain, edema, orthopnea. GI:Denies: abdominal pain, nausea, vomiting. Musculoskeletal:Denies: myalgias, neck pain, thoracic pain. Neuro:Denies: dizziness, gait problem, lightheaded, numbness. All systems rev neg: except as noted OBJECTIVEVS/I O:Vital Signs Date Temp Pulse Resp B/P B/P Mean Pulse Ox FiO2 10/15 36.3 142 18 134/95 108 95 Last Documented: Result Date Time Pulse Ox 95 10/15 1521 B/P 134/95 10/15 152 B/P Mean 108 10/15 1521 O2 Delivery Room air 10/15 152 Temp 36.3 10/15 152 Pulse 142 10/15 152 Resp 18 10/15 1521 Patient Weight and BMI Weight (kg): 59.545 BMI: 20.6 Medications:Active Meds + DC'd Last 24 HrsAcetaminophen (TYLENOL) 650 MG Q4H PRN PRN PO (UNV) Hydralazine HCl (APRESOLINE) 10 MG Q4H PRN PRN IV (UNV) Ondansetron HCl (ZOFRAN) 4 MG Q8H PRN PRN IV (UNV) Metoprolol Tartrate (LOPRESSOR 5MG IJ) 5 MG ONCE ONE IV (DC) General appearance: alert, awake, orientedHead/Eyes: atraumatic, clear cornea, EOMIENT: moist mucosal membranes, normal ear left, normal ear right, normal noseNeck: full range of motion, non-tenderCardiovascular: irregularly irregular, tachycardic, normal capillary refillRespiratory: aerating well, clear to auscultation, symmetric expansion, no distressAbdomen: non-tender, soft, no distentionExtremities: moves all, no edemaMusculoskeletal: normal inspection, painless range of motionNeuro/TEST DESIGN ENGINEER: alert, oriented X 3, CNII-XII intact, no motor deficitsSkin: dry, normal color, no rashPsychiatry: normal affect, normal judgment/insight, normal mood ResultsFindings/Data:Laboratory Tests: 10/15 10/15 1634 1545 Chemistry Sodium (137 - 145 MMOL/L) 142 Potassium (3.5 - 5.1 MMOL/L) 4.3 Chloride (98 - 107 MMOL/L) 109 H Carbon Dioxide (22 - 30 MMOL/L) 28 BUN (7 - 17 MG/DL) 20 H Creatinine (0.52 - 1.04 MG/DL) 0.90 Glomerular Filtr Rate > 60 Glucose (74 - 106 MG/DL) 92 Calcium (8.4 - 10.2 MG/DL) 9.3 Magnesium (1.6 - 2.3 MG/DL) 2.1 Total Bilirubin (0.2 - 1.3 MG/DL) 0.8 AST (14 - 36 UNITS/L) 28 ALT (0 - 34 UNITS/L) 32 Total Alk Phosphatase (38 - 126 UNITS/L) 87 Total Protein (6.3 - 8.2 G/DL) 7.4 Albumin (3.5 - 5.0 G/DL) 4.1 Hematology WBC (3.8 - 9.8 K/MM3) 11.6 H RBC (3.58 - 4.97 M/MM3) 5.25 H Hgb (11.2 - 14.9 G/DL) 15.8 H Hct (33.2 - 43.5 %) 47.6 H MCV (80.7 - 99.1 fL) 91 MCH (27.0 - 34.1 pg) 30.1 MCHC (32.2 - 35.7 %) 33.2 RDW (12.1 - 15.2 %) 13.1 Plt Count (129 - 368 K/MM3) 255 MPV (7.4 - 10.4 fl) 10.8 H Neut % (Auto) (43 - 75 %) 70.6 Lymph % (Auto) (14 - 44 %) 20.8 Caroline % (Auto) (4 - 13 %) 6.6 Eos % (Auto) (0 - 6 %) 1.1 Baso % (Auto) (0 - 2 %) 0.3 Neut # (Auto) (2.0 - 7.6 K/mm3) 8.15 H Lymph # (Auto) (1.0 - 3.8 K/mm3) 2.41 Caroline # (Auto) (0.1 - 0.8 K/mm3) 0.76 Eos # (Auto) (0.0 - 0.2 K/mm3) 0.13 Baso # (Auto) (0.0 - 0.2 K/mm3) 0.04 Immature Gran % (0.0 - 2.0 %) 0.6 Nucleated RBC % (0 - 1.0 %) 0.0 Nucleated RBCs # (Man) (0.0 - 0.1 K/mm3) 0.00 Urines Urine Color (YELLOW) YELLOW Urine Appearance (CLEAR) CLEAR Urine pH (5.0 - 9.0) 6.0 Ur Specific Ten Sleep (1.003 - 1.030) 1.015 Urine Protein (NEGATIVE MG/DL) NEGATIVE Urine Glucose (UA) (NORMAL MG/DL) NORMAL Urine Ketones (NEGATIVE MG/DL) NEGATIVE Urine Blood (NEGATIVE Saw/mm3) 25 H Urine Nitrite (NEGATIVE) NEGATIVE Urine Bilirubin (NEGATIVE MG/DL) NEGATIVE Urine Urobilinogen (NORMAL MG/DL) NORMAL Ur Leukocyte Esterase (NEGATIVE /mm3) NEGATIVE Urine RBC (0 - 3 RBC/HPF) 5-10 H Urine WBC (0 - 5 WBC/HPF) 0-3 Ur Epithelial Cells (FEW EPI/HPF) FEW Urine Bacteria (NONE) RARE Urine Culture Screen (Culture Chk Criteria) NO, WBC>10 EPI>25 Laboratory Tests 10/15/22 1545:[Embedded Image Not Available] Scores [id number] [id number] Score [id number] Score Response Value CHF: No 0 HTN: Yes 1 age greater than 75 years: No 0 age between 65 and 74 yrs: Yes 1 hx stroke, TIA, or TE: No 0 vascular disease: No 0 diabetes mellitus: No 0 female: Yes 1 Total 3 HEART for MACEHEART for MACE HEART for MACE Response Value History Low index of suspicion 0 ECG Interpretation Nonspec repol disturb 1 Age Age 65 or over 2 Risk Factors for CAD 1-2 CAD risk factors 1 Troponin < or = to NL troponin 0 Total 4 HEART score for MACE: 4-7 (mod risk 12%-16.6%) Diagnosis, Assessment PlanProblem List/A P: 1. New onset a-fib 2. Atrial fibrillation with RVR 3. Hypertension 4. Heart valve regurgitation unknown which valve 5. COPD (chronic obstructive pulmonary disease) 6. Leukocytosis Most likely due to dehydration given elevated WBC, Hgb, and Hct Free Text A P:72 year old woman with HTN, COPD, heart valuve regurgitation who presents with 4day history of palpitations and band-like discomfort in her left chest and was found to have atrial fibrillation with RVR. Unclear trigger but post-op steroidsmay be contributory. [id number] is 3. Admit to observationElectrophysiology consult (Dr. Lemon), appreciate recsTelemetry monitoringPlan for cardioversionNPO excepting for meds pending procedureIf BP remains elevated, will restart losartanTrend troponins Diet: NPO then cardiacDVT ppx: SCDsFull code NOK: Giuliana Loomis (daughter), Xjxhiovzxpw: cardiologyResuscitation discussion: Discussed with: patientCode status: full code Quality: Gen Med Crit Care VTE ProphylaxisVTE prophylaxis initiated: yes Current MedicationsCurrent medication review:I attest that the foregoing medication list in the medical record is true, accurate, and complete to the best of my knowledge. Advanced Care Plan 65 or OlderDiscussed with: patient (full code) AttestationsAttestation needed: supervising physician Lyle Schaefer 10/16/22 1325:History Medication/Allergy-Vaccine HxAllergies:Coded Allergies:Sulfa (Sulfonamide Antibiotics) (Intermediate, MIGRAINES 10/16/22) Quality: Gen Med Crit Care Advanced Care Plan 65 or OlderDiscussion included: code status Attestations Teaching Physician [id number] visit w/ resident:I was present with the resident during the history and exam. I discussed the case with the resident and . . . agree with the findings and plan as documented in the resident's note DW DR lemon and cont beta keo for now, communicated w Dr charles as well, cardioversion planned at 1659 at 1326 RPT #:[id number] OF REPORTHPHistory and physical [id number]:41:00Z.[id number] AVAvailable for patient [id number]:59:51 HCAWU
[2023-12-07] MEDS ORDERED: NA CHLORIDE 0.9% 1,000 ML ONE ×2 (20:58→23:51)
[2023-12-07] MEDS ORDERED: FENTANYL CITR 100 MCG/2 ML ONE ×2 (20:58→22:25)
[2023-12-07 21:14] LABS: Absolute Monocytes 2.1 K/uL (0.1-1.3); Absolute Neutrophil 15.1 K/uL (1.8-8.0); Basophils % 0.2 % (0-1.3); Eosinophils % 0.2 % (0-4.4); Hematocrit 42.3 % (36.0-45.0); Hemoglobin 13.9 g/dL (12.0-15.0); Lymphocytes % 5.6 % (15.3-44.8); MCH 29.9 pg (27.0-35.0); MCHC 32.8 g/dL (32.0-36.0); Monocytes % 11.6 % (3.3-12.3); Neutrophils % 82.4 % (41.7-73.7); Platelets 132 thou/uL (152-406); RBC Red Blood Cell Count 4.65 M/uL (3.86-4.86); Red Cell Distribution Width 12.8 % (12.1-15.2)
[2023-12-07 21:15] LABS: PT Prothrombin Time 25.4 SECONDS (9.5-12.5); PTT, Activated Partial Thromb 29.1 SECONDS (24.3-36.9); Protime INR 2.37
[2023-12-07 21:37] LABS: Albumin 2.8 g/dL (3.4-5.0); Albumin/Globulin Ratio 0.8 (1.1-1.8); Anion Gap 11.2 mEq/L (5.0-15.0); Globulin 3.7 g/dL (2.3-3.5); Potassium 4.2 mEq/L (3.5-5.1); Protein, Total 6.5 g/dL (6.4-8.2)
[2023-12-07] MEDS ORDERED: LEVALBUTEROL 1.25 MG/3 ML NEB ONE (21:38)
[2023-12-07] MEDS ORDERED: METHYLPREDNISOLONE 125 MG INJ ONE (21:38)
[2023-12-07] MEDS ORDERED: AZITHROMYCIN 500 MG INJ IVPB ONE (22:14)
[2023-12-07] MEDS ORDERED: CEFTRIAXONE 1000 MG/VIAL ONE (22:14)
[2023-12-07] MEDS ORDERED: NA CHLORIDE 0.9% 250 ML ONE (22:15)
--- NOTE | 2023-12-07 22:47 | RAD REPORT ---
EXAM DESCRIPTION: Cristi Single View12/07/2023 8:46 pm CLINICAL HISTORY: Shortness of breath COMPARISON: 2022 FINDINGS: Lungs are mildly to moderately hyperaerated Mild left basilar lung opacities Right lung appears clear of acute infiltrate The heart is normal size IMPRESSION: COPD Mild left basilar lung opacities may indicate mild pneumonia
--- NOTE | 2023-12-08 00:01 | EDPHYS ---
Physician Documentation [facility] Name: Nina Alvarado Age: 73 yrs Sex: Female : 1950 Arrival Date: 12/07/2023 Time: 20:32 Bed 3 Private MD: ED Physician Jayme Starr HPI: 12/06 21:03 This 73 yrs old Female presents to ER via Unassigned with complaints of Shortness Of rn Breath. 21:03 The patient has shortness of breath at rest. Onset: The symptoms/episode began/occurred rn at an unknown time. 21:03 Duration: The symptoms are continuous. The patient's shortness of breath has no rn apparent modifying factors. Severity of symptoms: At their worst the symptoms were moderate in the emergency department the symptoms are unchanged. The patient has experienced similar episodes in the past. 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 Patient with increased shortness of breath today. Has history of COPD. No trauma. Patient denies pain other than her regular pain in her mid back. No history of DVT or PE. EMS reports O2 was low 80s.. Historical: - Allergies: 21:12 Sulfa (Sulfonamide Antibiotics); km8 - Home Meds: 21:12 Unable to obtain [Active]; km8 - PMHx: 21:12 cancer mass T2-T12; km8 - PSHx: 21:12 Unable to Obtain; km8 - Immunization history:: Adult Immunizations unknown. - Infectious Disease History:: Denies. - Family history:: not pertinent. - Social history:: Smoking status: Patient/guardian denies using tobacco, Patient uses street drugs, marijuana, Patient/guardian denies using alcohol. - Hospitalizations: : No recent hospitalization is reported. ROS: 21:03 Constitutional: Negative for fever, chills, and weight loss, Eyes: Negative for injury, rn pain, redness, and discharge, Neck: Negative for injury, pain, and swelling, Cardiovascular: Negative for chest pain, palpitations, and edema, Respiratory: Positive for shortness of breath Abdomen/GI: Negative for abdominal pain, nausea, vomiting, diarrhea, and constipation, Back: Positive for chronic back pain MS/Extremity: Negative for injury and deformity, Skin: Negative for injury, rash, and discoloration, Neuro: Positive for generalized weakness Exam: 21:03 Constitutional: This is a well developed, well nourished patient who is awake, alert, rn mild tachypnea Head/Face: Normocephalic, atraumatic. ENT: Dry mucous membranes, no stridor Cardiovascular: Tachycardic, regular. No pulse deficits. Respiratory: Mild tachypnea, wheezing bilaterally, diminished at bases Abdomen/GI: Soft, nontender, nondistended, no peritoneal signs MS/ Extremity: Pulses equal, no cyanosis. Neurovascular intact. Full, normal range of motion. Equal circumference. Neuro: Awake and alert, GCS 15, oriented to person, place, time, and situation. Cranial nerves II-XII grossly intact. Motor strength 5/5 in all extremities. Sensory grossly intact. Cerebellar exam normal. 21:08 ECG was reviewed by the Attending Physician. rn Vital Signs: 20:33 BP 119 / 69; Pulse 107; Resp 20; Temp 98.9; Pulse Ox 99% on R/A; Weight 90.72 kg (R); km8 Height 5 ft. 7 in. (R); Pain 0/10; 20:45 BP 96 / 69; Pulse 114; Resp 22; Pulse Ox 90% on 4 lpm NC; km8 21:00 BP 99 / 58; Pulse 109; Resp 20; Pulse Ox 90% on 4 lpm NC; km8 21:15 BP 103 / 56; Pulse 104; Resp 23; Pulse Ox 91% on 4 lpm NC; km8 21:30 BP 107 / 60; Pulse 102; Resp 25; Pulse Ox 92% on 4 lpm NC; km8 21:45 BP 112 / 52; Pulse 103; Resp 23; Pulse Ox 99% on Nebulizer Mask; km8 22:00 BP 117 / 66; Pulse 101; Resp 23; Pulse Ox 98% on R/A; km8 22:40 BP 97 / 52; Pulse 98; Pulse Ox 91% on 4 lpm NC; km8 23:00 BP 100 / 48; Pulse 96; Resp 21; Pulse Ox 91% on 4 lpm NC; km8 23:30 BP 96 / 57; Pulse 94; Resp 21; Pulse Ox 89% on 4 lpm NC; km8 12/07 00:00 BP 98 / 57; Pulse 91; Resp 19; Pulse Ox 88% on 4 lpm NC; km8 00:15 BP 100 / 60; Pulse 89; Resp 18; Pulse Ox 92% on 5 lpm NC; 8 00:45 BP 114 / 59; Pulse 87; Resp 19; Pulse Ox 92% on 5 lpm NC; km8 01:00 BP 108 / 59; Pulse 90; Resp 23; Pulse Ox 95% on 5 lpm NC; km8 01:30 BP 104 / 57; Pulse 86; Resp 21; Pulse Ox 93% on 5 lpm NC; km8 02:00 BP 98 / 55; Pulse 80; Resp 20; Pulse Ox 92% on 5 lpm NC; 8 02:30 BP 103 / 55; Pulse 76; Resp 18; Pulse Ox 93% on 5 lpm NC; 8 03:00 BP 105 / 61; Pulse 75; Resp 16; Pulse Ox 94% on 5 lpm NC; [facility] 12/06 20:33 Body Mass Index 31.32 (90.72 kg, 170.18 cm) [facility] 12/06 20:33 Pain Scale: Adult 8 Robert Coma Score: 12/06 20:33 Eye Response: spontaneous(4). Motor Response: obeys commands(6). Verbal Response: [facility] oriented(5). Total: 15. MDM: 20:33 Patient medically screened. rn 23:59 Differential diagnosis: Anemia Bronchitis Chronic Obstructive Pulmonary Disease rn Myocardial Infarction pneumonia, Pneumothorax pulmonary edema, Pulmonary Embolism. Data reviewed: vital signs, nurses notes, lab test result(s), EKG, radiologic studies, CT scan, plain films, and as a result, I will admit patient. Consideration of Admission/Observation Patient was admitted/placed on observation. Escalation of care including admission/observation considered. Counseling: I had a detailed discussion with the patient and/or guardian regarding the historical points, exam findings, and any diagnostic results supporting the discharge/admit diagnosis, lab results, radiology results, the need for further work-up and treatment in the hospital. Special discussion:. ED course: Patient with pneumonia, CT PE negative for PE. Stable vital signs, improving with IV fluids and nebulizer treatments. Will admit to hospital service for further care.. 12/06 20:39 Order name: Blood Culture Adult (2) rn 12/06 20:39 Order name: CBC with Diff; Complete Time: 22:07 rn 12/06 20:39 Order name: CMP; Complete Time: 22:07 rn 12/06 20:39 Order name: Lactate w/ 2H reflex if indic.; Complete Time: 22:07 rn 12/06 20:39 Order name: Protime (+inr); Complete Time: 22:07 rn 12/06 20:39 Order name: Ptt, Activated; Complete Time: 22:07 rn 12/06 20:39 Order name: Urinalysis w/ reflexes rn 12/07 02:06 Order name: Urinalysis w/ reflexes EDMS 12/06 20:39 Order name: Chest Single View XRAY; Complete Time: 23:29 rn 12/06 20:39 Order name: CT Head Brain wo Cont rn 12/06 20:39 Order name: CT Chest For PE Angio rn 12/06 20:39 Order name: Accucheck; Complete Time: 22:03 rn 12/06 20:39 Order name: Cardiac monitoring; Complete Time: 21:02 rn 12/06 20:39 Order name: EKG - Nurse/Tech; Complete Time: 21: rn 12/06 20:39 Order name: IV Saline Lock - Large Bore; Complete Time: 21: rn 12/06 20:39 Order name: Labs collected and sent; Complete Time: 21: rn 12/06 20:39 Order name: O2 Per Protocol; Complete Time: 21: rn 12/06 20:39 Order name: O2 Sat Monitoring; Complete Time: 21: rn 12/06 20:39 Order name: Vital Signs; Complete Time: 21:02 rn EC:08 Rate is 113 beats/min. Rhythm is regular. QRS [place] is Normal. AR interval is normal. rn QRS interval is normal. QT interval is normal. No Q waves. T waves are Normal. No ST changes noted. Clinical impression: Sinus tachycardia. Interpreted by me. Reviewed by me. Administered Medications: 21:02 Drug: NS 0.9% IV 1000 ml IV at 1000 ml once Route: IV; Rate: 1000 ml; Site: left [facility] forearm; 23:00 Follow up: IV Status: Completed infusion; IV Intake: 1000ml [facility] 21:02 Drug: fentaNYL (PF) IVP 50 mcg IVP once Route: IVP; Site: left forearm; [facility] 21:45 Follow up: Response: No adverse reaction; Pain is decreased [facility] 21:44 Not Given (given by EMS): [id number] mg IVP once km8 21:45 Drug: Levalbuterol Inhalation 1.25 mg Inhalation once Route: Inhalation; km8 22:22 Drug: Rocephin IV 1 grams IV at calculated rate once; Given slow IV push per pharmacy lg3 instructions Route: IV; Rate: calculated rate; Site: left forearm; 22:25 Follow up: IV Status: Completed infusion; IV Intake: 10ml km8 22:22 Drug: Zithromax IVPB 500 mg IVPB once over 1 hrs; mix in 250 mL NS Route: IVPB; Infused lg3 Over: 1 hrs; Site: left forearm; 23:25 Follow up: Response: No adverse reaction; IV Status: Completed infusion; IV Intake: km8 250ml 22:27 Drug: fentaNYL (PF) IVP 25 mcg IVP once Route: IVP; Site: right antecubital; lg3 23:00 Follow up: Response: No adverse reaction; Pain is decreased [facility] 23:55 Drug: NS 0.9% IV 1000 ml IV at 1000 ml once Route: IV; Rate: 1000 ml; Site: left lg3 forearm; 12/07 03:14 Follow up: IV Status: Completed infusion; IV Intake: 1000ml km8 Disposition Summary: 12/08/23 00:00 Hospitalization Ordered Notes: Hospitalization Status: Inpatient Admission rn Provider: Maurilio Tucker rn Location: Telemetry/[facility] (Inpatient) rn Condition: Stable rn Problem: new rn Symptoms: have improved rn Bed/Room Type: Standard rn Room Assignment: 402(12/08/23 02:11) rv1 Diagnosis - Pneumonia, unspecified organism rn - COPD/ Chronic obstructive pulmonary disease with acute lower respiratory infection rn - Hypoxemia rn Forms: - Medication Reconciliation Form rn - SBAR form rn - Leadership Thank You Letter rn Signatures: Dispatcher [employer] EDMS Jayme Starr MD MD rn Able, Lacie, RN RN 3 Alessia Slaughter rv1 Binta Yung RN RN km8 Corrections: (The following items were deleted from the chart) 12/06 20:39 20:39 BLOOD CULTURE*+BA.LAB.BRZ ordered. EDMS EDMS 20:39 20:39 CBC+H.LAB.BRZ ordered. EDMS EDMS 20:39 20:39 COMPREHENSIVE METABOLIC PANEL+C.LAB.BRZ ordered. EDMS EDMS 20:39 20:39 LACTATE+C.LAB.BRZ ordered. EDMS EDMS 20:39 20:39 PROTIME (+INR)+COAG.LAB.BRZ ordered. EDMS EDMS 20:39 20:39 PTT, ACTIVATED+COAG.LAB.BRZ ordered. EDMS EDMS 20:39 20:39 Urinalysis+U.LAB.BRZ ordered. EDMS EDMS 20:39 20:39 Head Brain Wo Cont+CT.RAD.BRZ ordered. EDMS EDMS 20:39 20:39 Chest For PE Angio+CT.RAD.BRZ ordered. EDMS EDMS 12/07 02:11 00:00 rn rv1
--- NOTE | 2023-12-08 00:01 | ER ---
Nurse's Notes [facility] Name: Nina Alvarado Age: 73 yrs Sex: Female : 1950 Arrival Date: 12/07/2023 Time: 20:32 Bed 3 Private MD: Diagnosis: Pneumonia, unspecified organism;COPD/ Chronic obstructive pulmonary disease with acute lower respiratory infection;Hypoxemia Presentation: 12/06 20:33 Chief complaint: EMS states: toned out for SOB and intermittent confusion; pt currently km8 taking norco for newly diagnosed metastatic cancer from a mass in her spine,T2-T12; pt A\\T\\Ox4 at this time and complaining for SOB for 1 week with "night sweats". Coronavirus screen: Client denies travel out of the [place] in the last 14 days. Ebola Screen: No symptoms or risks identified at this time. Initial Sepsis Screen: Does the patient meet any 2 criteria? HR > 90 bpm. No. Patient's initial sepsis screen is negative. Does the patient have a suspected source of infection? No. Patient's initial sepsis screen is negative. Risk Assessment: Do you want to hurt yourself or someone else? Patient reports no desire to harm self or others. Onset of symptoms was November 30, 2023. Care prior to arrival: Medication(s) given: Albuterol Neb x 2, Normal saline infusion, 500 mL, Solu-Medrol 125mg IV IV initiated. 18 GA, in the right antecubital area, Med neb given. Oxygen administered. via nasal cannula, via a nebulizer mask. 20:33 Method Of Arrival: EMS: [place] [id number] 20:33 Acuity: SURAJ 2 km8 Triage Assessment: 20:33 General: Appears uncomfortable, Behavior is cooperative, appropriate for age, anxious. km8 Pain: Denies pain. EENT: No signs and/or symptoms were reported regarding the EENT system. Neuro: Level of Consciousness is awake, alert, obeys commands, Oriented to person, place, time, situation. Cardiovascular: Denies chest pain, Patient's skin is warm and dry. Rhythm is sinus tachycardia. Respiratory: Reports shortness of breath at rest Airway is patent Respiratory effort is even, labored, Respiratory pattern is regular, symmetrical, Breath sounds with rhonchi Breath sounds with wheezes Onset: The symptoms/episode began/occurred gradually, the patient has moderate shortness of breath. GI: No signs and/or symptoms were reported involving the gastrointestinal system. : No signs and/or symptoms were reported regarding the genitourinary system. Derm: No signs and/or symptoms reported regarding the dermatologic system. Skin is intact, is healthy with good turgor, Skin is dry, Skin is pink, warm \\T\\ dry. normal, Skin temperature is warm. Musculoskeletal: Range of motion: intact in all extremities, Reports chronic back pain; none at this time. Historical: - Allergies: 21:12 Sulfa (Sulfonamide Antibiotics); km8 - Home Meds: 21:12 Unable to obtain [Active]; km8 - PMHx: 21:12 cancer mass T2-T12; km8 - PSHx: 21:12 Unable to Obtain; km8 - Immunization history:: Adult Immunizations unknown. - Infectious Disease History:: Denies. - Family history:: not pertinent. - Social history:: Smoking status: Patient/guardian denies using tobacco, Patient uses street drugs, marijuana, Patient/guardian denies using alcohol. - Hospitalizations: : No recent hospitalization is reported. Screenin:33 [facility] ED Fall Risk Assessment (Adult) History of falling in the last 3 months, km8 including since admission No falls in past 3 months (0 pts) Confusion or Disorientation No (0 pts) Intoxicated or Sedated No (0 pts) Impaired Gait Yes (1 pt) Mobility Assist Device Used No (0 pt) Altered Elimination No (0 pt) Score/Fall Risk Level 0 - 2 = Low Risk Oriented to surroundings, Maintained a safe environment, Educated pt \\T\\ family on fall prevention, incl call for assistance when getting out of bed, Assessed \\T\\ reinforced patient's understanding of fall precautions, Provided non-skid footwear, Hourly rounding (assess needs \\T\\ fall precautionary measures) done, Used ambulatory aids as needed (educated on \\T\\ assisted with). Abuse screen: Denies threats or abuse. Denies injuries from another. Nutritional screening: No deficits noted. Tuberculosis screening: No symptoms or risk factors identified. Assessment: 20:33 Reassessment: see triage assessment/notes. km8 20:55 Reassessment: pt requesting pain medication and neb mask to be removed; pt placed on 4 km8 L via n/c. Cardiovascular: Denies chest pain, Patient's skin is warm and dry. Rhythm is sinus tachycardia. 21:45 Reassessment: Patient appears in no apparent distress at this time. Patient and/or km8 family updated on plan of care and expected duration. Pain level reassessed. Patient is alert, oriented x 3, equal unlabored respirations, skin warm/dry/pink. Patient states symptoms have improved. 22:10 Reassessment: pt placed on 2L O2 via n/c. km8 23:04 Reassessment: Patient appears in no apparent distress at this time. Patient and/or km8 family updated on plan of care and expected duration. Pain level reassessed. Patient is alert, oriented x 3, equal unlabored respirations, skin warm/dry/pink. pain decreased. Respiratory: Airway is patent Respiratory effort is even, unlabored, Respiratory pattern is regular, symmetrical. 23:59 Reassessment: Patient appears in no apparent distress at this time. No changes from km8 previously documented assessment. Patient and/or family updated on plan of care and expected duration. Pain level reassessed. Patient is alert, oriented x 3, equal unlabored respirations, skin warm/dry/pink. 12/07 01:00 Reassessment: Patient appears in no apparent distress at this time. No changes from km8 previously documented assessment. Patient and/or family updated on plan of care and expected duration. Pain level reassessed. Patient is alert, oriented x 3, equal unlabored respirations, skin warm/dry/pink. 02:01 Reassessment: Patient appears in no apparent distress at this time. No changes from km8 previously documented assessment. Patient and/or family updated on plan of care and expected duration. Pain level reassessed. Patient is alert, oriented x 3, equal unlabored respirations, skin warm/dry/pink. 03:13 Reassessment: Patient appears in no apparent distress at this time. No changes from km8 previously documented assessment. Patient and/or family updated on plan of care and expected duration. Pain level reassessed. pt preferred to go up to room in her own gown. Vital Signs: 12/06 20:33 BP 119 / 69; Pulse 107; Resp 20; Temp 98.9; Pulse Ox 99% on R/A; Weight 90.72 kg (R); km8 Height 5 ft. 7 in. (R); Pain 0/10; 20:45 BP 96 / 69; Pulse 114; Resp 22; Pulse Ox 90% on 4 lpm NC; 21:00 BP 99 / 58; Pulse 109; Resp 20; Pulse Ox 90% on 4 lpm NC; 21:15 BP 103 / 56; Pulse 104; Resp 23; Pulse Ox 91% on 4 lpm NC; 21:30 BP 107 / 60; Pulse 102; Resp 25; Pulse Ox 92% on 4 lpm NC; 21:45 BP 112 / 52; Pulse 103; Resp 23; Pulse Ox 99% on Nebulizer Mask; 22:00 BP 117 / 66; Pulse 101; Resp 23; Pulse Ox 98% on R/A; 22:40 BP 97 / 52; Pulse 98; Pulse Ox 91% on 4 lpm NC; 23:00 BP 100 / 48; Pulse 96; Resp 21; Pulse Ox 91% on 4 lpm NC; 23:30 BP 96 / 57; Pulse 94; Resp 21; Pulse Ox 89% on 4 lpm NC; 12/07 00:00 BP 98 / 57; Pulse 91; Resp 19; Pulse Ox 88% on 4 lpm NC; 00:15 BP 100 / 60; Pulse 89; Resp 18; Pulse Ox 92% on 5 lpm NC; 00:45 BP 114 / 59; Pulse 87; Resp 19; Pulse Ox 92% on 5 lpm NC; 01:00 BP 108 / 59; Pulse 90; Resp 23; Pulse Ox 95% on 5 lpm NC; 01:30 BP 104 / 57; Pulse 86; Resp 21; Pulse Ox 93% on 5 lpm NC; 02:00 BP 98 / 55; Pulse 80; Resp 20; Pulse Ox 92% on 5 lpm NC; 02:30 BP 103 / 55; Pulse 76; Resp 18; Pulse Ox 93% on 5 lpm NC; 03:00 BP 105 / 61; Pulse 75; Resp 16; Pulse Ox 94% on 5 lpm NC; 12/06 20:33 Body Mass Index 31.32 (90.72 kg, 170.18 cm) 12/06 20:33 Pain Scale: Adult km8 [place] Coma Score: 12/06 20:33 Eye Response: spontaneous(4). Motor Response: obeys commands(6). Verbal Response: km8 oriented(5). Total: 15. ED Course: 20:33 Patient arrived in ED. rn 20:33 Jayme Starr MD is Attending Physician. rn 20:33 Maintain EMS IV. Dressing intact. Good blood return noted. Site clean \\T\\ dry. Gauge \\T\\ km 8 site: 18 gauge right AC. 20:33 Oxygen administered via a nebulizer mask. km8 20:33 Arm band placed on right wrist. km8 20:33 Patient has correct armband on for positive identification. Bed in low position. Call km8 light in reach. Side rails up X2. Client placed on continuous cardiac and pulse oximetry monitoring. NIBP monitoring applied. monitoring tech on. Pulse ox on. NIBP on. Warm blanket given. 20:37 Binta Yung RN is Primary Nurse. km8 20:48 Chest Single View XRAY In Process Unspecified. EDMS 20:55 Inserted saline lock: 20 gauge in left forearm, using aseptic technique. Blood km8 collected. 20:55 Initial lab(s) drawn, by me, sent to lab. EKG done, by ED staff, reviewed by Jayme Starr MD. 20:56 First set of blood cultures drawn by me. km8 21:02 CBC with Diff Sent. km8 21:02 CMP Sent. km8 21:02 Lactate w/ 2H reflex if indic. Sent. km8 21:02 Protime (+inr) Sent. km8 21:02 Ptt, Activated Sent. km8 21:08 Triage completed. km8 22:[address] km8 22:42 CT Head Brain wo Cont In Process Unspecified. EDMS 22:42 CT Chest For PE Angio In Process Unspecified. EDMS 22:47 Patient moved back from CT. km8 23:59 No provider procedures requiring assistance completed. km8 12/07 00:00 Maurilio Tucker MD is Hospitalizing Provider. rn 01:04 Assisted to bedside commode. Cleaned of incontinence. lg3 01:05 Repositioned patient. lg3 02:02 Patient admitted, IV remains in place. km8 02:02 Provided Education on: admission process. km8 Administered Medications: 12/06 21:02 Drug: NS 0.9% IV 1000 ml IV at 1000 ml once Route: IV; Rate: 1000 ml; Site: left km8 forearm; 23:00 Follow up: IV Status: Completed infusion; IV Intake: 1000ml [facility] 21:02 Drug: fentaNYL (PF) IVP 50 mcg IVP once Route: IVP; Site: left forearm; km8 21:45 Follow up: Response: No adverse reaction; Pain is decreased [facility] 21:44 Not Given (given by EMS): [id number] mg IVP once 21:45 Drug: Levalbuterol Inhalation 1.25 mg Inhalation once Route: Inhalation; [facility] 22:22 Drug: Rocephin IV 1 grams IV at calculated rate once; Given slow IV push per pharmacy lg3 instructions Route: IV; Rate: calculated rate; Site: left forearm; 22:25 Follow up: IV Status: Completed infusion; IV Intake: 10ml [facility] 22:22 Drug: Zithromax IVPB 500 mg IVPB once over 1 hrs; mix in 250 mL NS Route: IVPB; Infused lg3 Over: 1 hrs; Site: left forearm; 23:25 Follow up: Response: No adverse reaction; IV Status: Completed infusion; IV Intake: km8 250ml 22:27 Drug: fentaNYL (PF) IVP 25 mcg IVP once Route: IVP; Site: right antecubital; lg3 23:00 Follow up: Response: No adverse reaction; Pain is decreased [facility] 23:55 Drug: NS 0.9% IV 1000 ml IV at 1000 ml once Route: IV; Rate: 1000 ml; Site: left lg3 forearm; 12/07 03:14 Follow up: IV Status: Completed infusion; IV Intake: 1000ml Medication: 12/06 20:33 VIS not applicable for this client. 8 Intake: 22:25 IV: 10ml; Total: 10ml. 8 23:00 IV: 1000ml; Total: 1010ml. km8 23:25 IV: 250ml; Total: 1260ml. 8 12/07 03:14 IV: 1000ml; Total: 2260ml. [facility] Outcome: 00:00 Decision to Hospitalize by Provider. rn 03:13 Admitted to Med/surg accompanied by nurse, via stretcher, room 402, with oxygen, with km8 chart, 03:13 Condition: stable 03:13 Instructed on the need for admit, Demonstrated understanding of instructions, 03:15 Patient left the ED. km8 Signatures: Dispatcher [employer] EDMS Jayme Starr MD MD rn Able, Lacie, RN RN lg3 Binta Yung RN RN km8 Corrections: (The following items were deleted from the chart) 12/06 20:37 20:37 Chief complaint: km8 km8 12/07 03:17 03:13 Reassessment: Patient appears in no apparent distress at this time. No changes km8 from previously documented assessment. Patient and/or family updated on plan of care and expected duration. Pain level reassessed. km8
--- NOTE | 2023-12-08 01:59 | P.HP ---
Certification for Inpatient Patient admitted to: Inpatient With expected LOS: >2 Midnights Practitioner: I am a practitioner with admitting privileges, knowledge of patient current condition, hospital course, and medical plan of care. Services: Services provided to patient in accordance with Admission requirements found in Title 42 Section 412.3 of the Code of Federal Regulations Patient History Date of Service: 12/08/23 Reason for admission: SOB History of Present Illness: 73 yrs old Female with past medical history of COPD, hypertension, atrial fibrillation, kidney stones who came to ER with shortness of breath. Patient denies any fever or chills. Shortness of breath was insidious in onset. Patient had similar episodes in the past. She states that she has been recently been diagnosed with cancer does not know the details Shortness of breath started all of a sudden and has been progressively worsening. She has mid back pain. No history of trauma. Back pain has been there for longer time. Patient denies any chest pain. No cough. No nausea vomiting or diarrhea. Patient was noted to be hypoxic and was placed on oxygen Patient does not use oxygen at home Patient was assessed in the ER and is admitted for further management of COPD exacerbation : Allergies Sulfa (Sulfonamide Antibiotics) Allergy (Severe, Verified 06/03/23 11:06) Migraines bupropion [From Wellbutrin] Adverse Reaction (Verified 06/03/23 11:06) Paranoid Home medications list reviewed: Yes Home Medications: Budesonide/Glycopyr/Formoterol [Breztri Aerosphere Inhaler] 2 puff IH DAILY 05/19/23 Flecainide Acetate 50 mg PO BID 05/19/23 Levalbuterol Tartrate [Levalbuterol Tartrate Hfa] 2 puff IH PRN PRN 05/19/23 Apixaban [Eliquis] 5 mg PO BID 12/08/23 Losartan Potassium [Cozaar] 25 mg PO DAILY 12/08/23 - Past Medical/Surgical History Past Medical History: Reviewed- Non-Contributory -: HTN, Atrial Fibrillation Past Surgical History: Reviewed- Non-Contributory -: ureteric stone - Family History Family History: Reviewed- Non-Contributory - Social History Smoking Status: Former smoker Review of Systems 10-point ROS is otherwise unremarkable Physical Examination - Vital Signs Temperature: 98.9 F Blood Pressure: 118/68 Pulse: 78 Respirations: 18 Pulse Ox (%): 94 - Physical Exam General: Alert, Oriented x3, Cooperative, Mild distress HEENT: Atraumatic, Normocephalic Neck: Supple Respiratory: Diminished, Crackles/rales, Expiratory wheezes Cardiovascular: Regular rate/rhythm, Normal S1 S2 Capillary refill: <2 Seconds Gastrointestinal: Soft and benign, W/out hepatosplenomegaly Musculoskeletal: No clubbing, No swelling Integumentary: No rashes, No breakdown Neurological: Normal speech, Normal strength at 5/5 x4 extr, Cranial nerves 3-12 intact, Normal reflexes 2+, Normal affect Lymphatics: No axilla or inguinal lymphadenopathy - Studies Laboratory Data (last 24 hrs) 12/07/23 12/07/23 12/07/23 20:56 20:56 20:56 WBC 18.30 H Hgb 13.9 Hct 42.3 Plt Count 132 L PT 25.4 H INR 2.37 APTT 29.1 Sodium 133 L Potassium 4.2 BUN 28 H Creatinine 1.21 H Glucose 139 H Total Bilirubin 2.0 H AST 82 H ALT 61 H Alkaline Phosphatase 289 H Assessment and Plan - Problems (Diagnosis) (1) COPD exacerbation Current Visit: Yes Status: Acute Plan: COPD exacerbation Monitor closely on telemetry Started on bronchodilators Oxygen supplementation Steroids added Chest x-ray findings noted Acute hypoxic respiratory failure Oxygen supplementation Saturating well on 4 L nasal cannula Will try to wean down oxygen requirement Pneumonia left basilar Continue antibiotics Monitor closely Change antibiotic as per sensitivity Hyponatremia Electrolytes monitor and replace accordingly Elevated LFTs Monitor LFTs in a.m. History of atrial fibrillation Continue home medications and titrate as needed Leukocytosis Will start on empiric antibiotics Monitor closely GI/DVT prophylaxis Discharge Plan: Home Plan to discharge in: Greater than 2 days - Advance Directives Does patient have a Living Will: No Does patient have a Durable POA for Healthcare: No - Code Status/Comfort Care Code Status: Full Code Time Spent Managing Pts Care (In Minutes): 48
[2023-12-08 02:01] LABS: Sqamous Epithelial <5 /HPF (None Seen); Urine Bacteria None Seen /HPF (<20); Urine Bilirubin NEGATIVE (Negative); Urine Blood Negative (Negative); Urine Clarity Clear (Clear); Urine Color Yellow (Yellow); Urine Culture Reflex Order NOT NEEDED; Urine Glucose NEGATIVE (Negative); Urine Ketones TRACE (Negative); Urine Microscopic Reflex YN ORDER UMIC; Urine Mucus Slight /HPF (None Seen); Urine Nitrite NEGATIVE (Negative); Urine Protein TRACE (Negative); Urine RBC None Seen /HPF (None Seen); Urine Urobilinogen Normal (Normal); Urine WBC <5 /HPF (<5); Urine pH 5.5 (5.0-7.0)
[2023-12-08 02:04] LABS: Specific Gravity > 1.030 (1.005-1.030)
[2023-12-08] MEDS ORDERED: LEVALBUTEROL TARTRATE AD IH PRN (07:38)
[2023-12-08] MEDS: IPRATROPIUM BROM 0.5MG/2.5ML NEB SCH (07:41)
[2023-12-08] MEDS: ALBUTEROL 2.5 MG/3 ML NEB SOL NEB SCH (07:42)
[2023-12-08] MEDS: INSULIN REGULAR (HUMAN) 100 UNIT/ML SQ SCH (07:49)
[2023-12-08] MEDS: ACETAMINOPHEN 325 MG TABLET PO PRN (08:55)
[2023-12-08] MEDS: CEFTRIAXONE 1,000 MG in NA CHLORIDE 0.9% 50 ML IVPB SCH (08:56)
[2023-12-08] MEDS: AZITHROMYCIN IV 500 MG in NA CHLORIDE 0.9% 250 ML IVPB SCH (08:56)
[2023-12-08] MEDS: FLECAINIDE 100 MG TAB PO SCH (08:56)
[2023-12-08] MEDS: APIXABAN 5 MG TABLET PO SCH (08:57)
[2023-12-08] MEDS: METHYLPREDNISOLONE 40 MG INJ IV SCH (08:57)
[2023-12-08] MEDS ORDERED: HOME MED 1 EA UNK (Losartan Potassium [Cozaar] 25 MG Tablet) PO SCH (09:00)
[2023-12-08] MEDS: **PT MED**Budesonide/Glycopyr/Formoterol [Breztri Aerosphere Inhaler] 10.7 GM Hfa IH SCH (09:00)
[2023-12-08] MEDS ORDERED: ENOXAPARIN 40 MG/0.4 ML SQ SCH (09:00)
--- NOTE | 2023-12-08 11:53 | RAD REPORT ---
EXAM DESCRIPTION: CT - Chest For Pe Angio - 12/08/2023 6:37 am CLINICAL HISTORY: 73 years, Female, DYSPNEA COMPARISON: None TECHNIQUE: Multiple transaxial tomograms of the chest were obtained from the lung apices through the lung bases utilizing 2 mm slice thickness at 2 mm interval reconstruction after the administration o f large bolus of IV contrast for complete opacification of the pulmonary arteries. Subsequent to 2-D and 3-D multiplanar reformats and maximum intensity projection images were generate d in the sagittal and coronal planes. An individualized dose optimization technique, Automated Exposure Control, was utilized for the perfo rmed procedure. Contrast: Intravenous contrast was administered. FINDINGS: Neck base: Visualized thyroid gland and soft tissues are normal. No adenopathy. CTA: Diagnostic quality: Adequate for assessment of the lobar pulmonary arteries. Evaluation of small pulmonary arteries is limited by suboptimal contrast opacification. No evidence of pulmonary emboli or right heart strain. No acute finding in the thoracic aorta. CHEST: Lungs: The lung parenchyma demonstrate diffuse centrilobular emphysematous changes throughout the conchis gs. Small posterior segment right upper lobe pulmonary nodule measuring 9.[address] series #501 imag e 92/141. Focal area of airspace opacity inferior lingula segment adjacent to the inferior aspect lef t major fissure on axial image 501 image [id number] perhaps corresponding to atelectasis and/or ea rly infiltrate. Compressive atelectatic changes posterior segment lower lobes. Airways: The trachea mainstem bronchus demonstrate to be within normal limits. Pleura: No evidence for significant pleural effusions. The diaphragms are well positioned. There is n o evidence for pneumothorax. Mediastinum and dann: There is no significant mediastinal and/or hilar lymphadenopathy. The axillary regions demonstrate to be clear. Heart: Borderline enlarged. No pericardial thickening or effusion. Vessels: Coronary: No significant coronary artery calcifications. Aorta: The thoracic aorta demonstrate to be within normal limits. No evidence for aneurysm. 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 Osseous structures: There is anterior spondylosis within the mid/lower thoracic spine with minimal de generative changes. Musculoskeletal: No soft tissue and/or musculoskeletal abnormality. Visualized upper abdomen: The visualized portions of the upper abdomen demonstrate heterogeneous appe arance of the liver posterior aspect right hepatic lobe and medial segment left hepatic lobe. IMPRESSION: No evidence of pulmonary embolism or right heart strain. Diffuse centrilobular emphysematous changes throughout the lungs. Focal area of airspace opacity inferior lingula segment adjacent to the inferior aspect left major fi ssure perhaps corresponding to atelectasis and/or early infiltrate. Right solid pulmonary nodule within the upper lobe measuring 9.7 mm. Per Fleischner Society Guideline s, consider a non-contrast Chest CT at 3 months, a PET/CT, or tissue sampling. These guidelines do not apply to immunocompromised patients and patients with cancer. Follow up in pa tients with significant comorbidities as clinically warranted. For lung cancer screening, adhere to L [place]-RADS guidelines. Reference: Radiology. 2017; 284(1):228-43. Mildly dilated main pulmonary artery could be related to pulmonary hypertension. Borderline cardiomegaly. 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 Heterogeneous appearance of the liver posterior aspect right hepatic lobe and medial segment left hep atic lobe, consider further evaluation with the ultrasound and/or CT scan of the abdomen and pelvis. Electronically signed by: Tr Roman MD 12/07/2023 11:51 PM CDT Due to temporary technical issues with the PACS/Fluency reporting system, reports are being signed by the in house radiologist without review as a courtesy to ensure prompt reporting. The interpreting r adiologist is fully responsible for the content of the report.
--- NOTE | 2023-12-08 11:59 | RAD REPORT ---
EXAM DESCRIPTION: CT - Head Brain Wo Cont - 12/08/2023 6:37 am CLINICAL HISTORY: AMS TECHNIQUE: Axial computed tomography images of the head/brain without intravenous contrast. Sagitt al and coronal reformatted images were created and reviewed. This CT exam was performed using one o r more of the following dose reduction techniques: automated exposure control, adjustment of the mA and/or kV according to patient size, and/or use of iterative reconstruction technique. COMPARISON: No relevant prior studies available. FINDINGS: Brain: Mild cerebral atrophy. Minimal bilateral periventricular and subcortical white ma tter low attenuation which is nonspecific and can be seen in the setting of chronic microvascular ang iopathy. No hemorrhage. Ventricles: Unremarkable. No ventriculomegaly. Bones/joints: Unremarkable. No acute fracture. Soft tissues: Unremarkable. Vasculature: There is atherosclerotic disease of the internal carotid arteries bilaterally. Sinuses: Unremarkable as visualized. No acute sinusitis. Mastoid air cells: Unremarkable as visualized. No mastoid effusion. IMPRESSION: 1. No acute intracranial or extra-axial abnormality. 2. Other findings as above. Electronically signed by: Brenda Carter MD 12/07/2023 11:42 PM CDT Due to temporary technical issues with the PACS/Fluency reporting system, reports are being signed by the in house radiologist without review as a courtesy to ensure prompt reporting. The interpreting r adiologist is fully responsible for the content of the report.
[2023-12-08] MEDS: HYDROCODONE/APAP 5/325 MG TAB PO PRN (13:24)
--- NOTE | 2023-12-08 14:38 | EKG ---
Test Date: 2023-12-07 Test Time: 20:47:59 Counseling Program Leader: ELISE MEASUREMENT RESULTS: Intervals: Rate: 113 WA: 128 QRSD: 94 QT: 354 QTc: 485 [place]: P: 32 WA: 128 QRS: 80 T: 65 INTERPRETIVE STATEMENTS: Sinus tachycardia Possible Inferior infarct, age undetermined Abnormal ECG Compared to ECG 10/04/2019 17:15:57 Myocardial infarct finding now present Sinus rhythm no longer present Ventricular premature complex(es) no longer present Left-axis deviation no longer present Electronically Signed On 12-08-23 14:37:23 CDT by Stpehan Forman
--- NOTE | 2023-12-08 17:06 | P.PN ---
Date of Service: 12/08/23 Patient seen and examined. She is requiring 5 L of oxygen by nasal cannula. Patient's daughter by her bedside mentioned patient became quite depressed after she was told by the nurse she has cancer. She had CT scans-chest and MRI of the spine reports which were reviewed and noted emphysema, multiple nodules in the lung, liver nodule, multiple hypoattenuating lesions several T-spine vertebra suggestive of metastatic disease. Diagnosis: COPD exacerbation Emphysema Acute respiratory failure with hypoxia Lung nodules Liver nodules Multiple vertebral lesions suggestive of metastatic disease Pneumonia Chronic atrial fibrillation Plan: Patient is on IV antibiotics, bronchodilators and steroids for COPD exacerbation. CD of outside images submitted to radiology to upload and interpret Feasibility of liver biopsy for cancer diagnosis pending radiology read of the images. May need to hold Eliquis for a few days prior to the biopsy Wean oxygen as tolerated.
[2023-12-08] MEDS: methocarbamoL 750 MG TAB PO PRN (22:09)
[2023-12-09] MEDS ORDERED: MORPHINE 2 MG/ML SYR ONE (02:12)
[2023-12-09] MEDS: MORPHINE 2 MG/ML SYR IV ONE (02:16)
[2023-12-09 03:54] LABS: Absolute Lymphocytes (CBC) 0.3 K/uL (0.7-4.9); Absolute Monocytes 0.9 K/uL (0.1-1.3); Basophils % 0.1 % (0-1.3); Hematocrit 37.3 % (36.0-45.0); Hemoglobin 12.4 g/dL (12.0-15.0); MCHC 33.2 g/dL (32.0-36.0); MCV 90.5 fL (80-100); MPV 10.2 fL (7.6-11.3); Monocytes % 5.4 % (3.3-12.3); Neutrophils % 92.5 % (41.7-73.7); Platelets 112 thou/uL (152-406); RBC Red Blood Cell Count 4.12 M/uL (3.86-4.86); Red Cell Distribution Width 12.9 % (12.1-15.2)
[2023-12-09 04:10] LABS: Anion Gap 11.3 mEq/L (5.0-15.0); Potassium 4.3 mEq/L (3.5-5.1)
[2023-12-09 07:27] LABS: Band Neutrophils 2 % (0-1); Differential Total Cells Count 100; Lymphocytes 2 % (15-42); Monocytes 4 % (0-10); Platelet Estimate DECR; Segmented Neutrophils 91 % (40-80)
[2023-12-09 07:28] LABS: Blood Morphology Comment NOT SEEN (NOT SEEN)
--- NOTE | 2023-12-09 10:55 | P.PN ---
Date of Service: 12/09/23 Subjective: Feeling better compared to how she felt on admission denies any new / worsening issues Feels breathing is a little easier today. On 5L NC currently. Doesn't use oxygen at home afebrile ROS: 10 point ROS as noted above, otherwise negative Physical Exam: GEN: Alert, oriented, NAD HEENT: Normal conjunctiva, sclera anicteric CV: Regular rate and rhythm, no edema Pulm: Nonlabored respirations on 5L NC, diminished at bases bilaterally, +expira tory wheezes ABD: Soft, nontender, nondistended Neuro: Normal speech, normal affect vitals reviewed Problem List: Acute hypoxic respiratory failure secondary to acute COPD exacerbation / pneumonia Recent cancer diagnosis now with multiple vertebral lesions suggestive of metastatic disease Lung and liver nodules Chronic a-fib on eliquis Hypertension Acute hypoxic respiratory failure secondary to acute COPD exacerbation / pneumonia Patient reports worsening dyspnea for ~1 week with associated night sweats and intermittent confusion CXR (12/06): COPD. mild left basilar lung opacities. ?possible mild pneumonia CTA chest (12/06): Diffuse centrilobular emphysematous changes. Focal area of airspace opacity inferior lingula segment adjacent to the inferior aspect left major fissure perhaps corresponding to atelectasis and/or early infiltrate. Right solid pulm nodule upper lobe (9.7 mm). Heterogeneous appearance of the liver posterior aspect right hepatic lobe and medial segment left hepatic lobe. Mildly dilated main pulm artery. Borderline cardiomegaly. CT head (12/06): No acute intracranial abnormality. Mild cerebral atrophy. atherosclerotic disease of the internal carotid arteries bilaterally. nonspecific Minimal bilateral periventricular and subcortical white matter low attenuation continue nebs, home inhalers Dr. Prasad, pulm consulted IV steroids deescalated to PO prednisone (12/08) rocephin / azithromycin (12/07-12/08) deescalated to PO augmentin per pulm (12/08-) blood cx (12/06): NGTD afebrile, leukocytosis improving (12/08) PRN analgesics / antiemetics wean oxygen as tolerated. Patient does not have oxygen at home. Recent cancer diagnosis now with multiple vertebral lesions suggestive of metastatic disease Patient reports being recently diagnosed with cancer from a mass in her spine but cannot recall further details. CTA chest this hospitalization with pulmonary / liver nodules as detailed above. had recent CT chest and MRI of the spine reports which were reviewed and noted emphysema, multiple nodules in the lung, liver nodule, multiple hypoattenuating lesions several T-spine vertebra suggestive of metastatic disease CD of outside images submitted to radiology to upload and interpret Feasibility of liver biopsy for cancer diagnosis pending radiology read of the images. PRN norco Chronic a-fib on eliquis continue eliquis Hypertension confirm home meds, restart as appropriate VTE: home eliquis Code: Full Dispo: Home ~2 days Pending pulm recs / off oxygen / remains afebrile
--- NOTE | 2023-12-09 12:17 | P.CNS ---
Date of Consult: 12/09/23 Reason for Consult: Possible pneumonia Chief Complaint: SOB History of Present Illness: Patient has history of COPD admitted with complaining of lower back pain denies any pulmonary complaints denies any cough sputum hemoptysis had a little fever admitted with some bilateral lower lobe infiltrate patient is compliant with her inhalers Allergies Sulfa (Sulfonamide Antibiotics) Allergy (Severe, Verified 06/03/23 11:06) Migraines bupropion [From Wellbutrin] Adverse Reaction (Verified 06/03/23 11:06) Paranoid Home Medications: Budesonide/Glycopyr/Formoterol [Breztri Aerosphere Inhaler] 2 puff IH DAILY 05/19/23 Flecainide Acetate 50 mg PO BID 05/19/23 Levalbuterol Tartrate [Levalbuterol Tartrate Hfa] 2 puff IH PRN PRN 05/19/23 Apixaban [Eliquis] 5 mg PO BID 12/08/23 Hydrocodone Bit/Acetaminophen [Belsano 10-325 Tablet] 750 mg PO Q8H PRN 12/08/23 Losartan Potassium [Cozaar] 25 mg PO DAILY 12/08/23 Metoprolol Tartrate [Lopressor] 25 mg PO BID 12/08/23 methocarbamoL [Robaxin*] 10 - 325 mg PO Q6H PRN 12/08/23 - Past Medical/Surgical History -: HTN, Atrial Fibrillation -: COPD -: ureteric stone - Social History Place of Residence: Home Review of Systems General: Weakness Respiratory: Shortness of Breath Musculoskeletal: Back Pain Physical Examination Temp Pulse Resp BP Pulse Ox 97.6 F 87 16 126/88 95 12/09/23 08:00 12/09/23 08:00 12/09/23 11:50 12/09/23 08:00 12/09/23 11:50 General: Alert, Oriented x3 Respiratory: Clear to auscultation bilaterally Cardiovascular: No edema, Normal pulses, Regular rate/rhythm Gastrointestinal: Normal bowel sounds, Soft and benign - Problems (1) Other nonspecific abnormal finding of lung field Current Visit: Yes Status: Acute Plan: RUL SPN, and LLL infiltrate (2) COPD (chronic obstructive pulmonary disease) Current Visit: Yes Status: Acute Plan: change to augmentin and pred Qualifiers: Emphysema type: unspecified
[2023-12-09] MEDS: HYDROMORPHONE HCL 0.5 MG/0.5 ML INJ IV PRN (20:04)
[2023-12-09] MEDS: AMOX/K CLAV 875 MG TAB PO SCH (20:04)
[2023-12-09] MEDS: predniSONE 20 MG TAB PO SCH (21:41)
[2023-12-10 04:00] LABS: Absolute Lymphocytes (CBC) 0.4 K/uL (0.7-4.9); Absolute Monocytes 1.6 K/uL (0.1-1.3); Absolute Neutrophil 12.3 K/uL (1.8-8.0); Basophils % 0.1 % (0-1.3); Eosinophils % 0.1 % (0-4.4); Hemoglobin 12.2 g/dL (12.0-15.0); MCH 30.2 pg (27.0-35.0); MCV 91.7 fL (80-100); MPV 9.6 fL (7.6-11.3); Monocytes % 11.4 % (3.3-12.3); Nucleated Red Blood Cells % 0.1 % (0-0); Platelets 113 thou/uL (152-406); RBC Red Blood Cell Count 4.04 M/uL (3.86-4.86); Red Cell Distribution Width 12.9 % (12.1-15.2)
[2023-12-10 04:13] LABS: Neutrophils % 85.4 % (41.7-73.7)
[2023-12-10 04:21] LABS: Albumin 2.4 g/dL (3.4-5.0); Albumin/Globulin Ratio 0.7 (1.1-1.8); Anion Gap 8.7 mEq/L (5.0-15.0); Bilirubin Total 0.9 mg/dL (0.2-1.0); Globulin 3.3 g/dL (2.3-3.5); Magnesium 2.3 mg/dL (1.6-2.4); Potassium 4.7 mEq/L (3.5-5.1); Protein, Total 5.7 g/dL (6.4-8.2)
[2023-12-10] MEDS: METOPROLOL TAR 25 MG TAB PO SCH (08:02)
--- NOTE | 2023-12-10 10:05 | P.PN ---
Date of Service: 12/10/23 Subjective: reports back pain worsened with coughing, deep inhales, palpation. Similar area and severity of pain to what shes been dealing with since ~October. physical therapy seemed to help a little but but back pain never completely went away. Saw pain doc that thought it was of msk etiology. otherwise no new / worsening problems breathing a little more comfortably today. Down to 4L NC prior imaging done at [facility] few days prior to admission. ROS: 10 point ROS as noted above, otherwise negative Physical Exam: GEN: Alert, oriented, NAD HEENT: Normal conjunctiva, sclera anicteric CV: Regular rate and rhythm, no edema Pulm: Nonlabored respirations on 4L NC, diminished at bases bilaterally, +expiratory wheezes ABD: Soft, nontender, nondistended Neuro: Normal speech, normal affect vitals reviewed Problem List: Acute hypoxic respiratory failure secondary to acute COPD exacerbation / pneumonia R posterior chest pain Recent cancer diagnosis now with multiple vertebral lesions suggestive of metastatic disease Chronic a-fib on eliquis Hypertension Acute hypoxic respiratory failure secondary to acute COPD exacerbation / pneumonia Patient reports worsening dyspnea for ~1 week with associated night sweats and intermittent confusion CTA chest (12/06): Diffuse centrilobular emphysematous changes. Focal area of airspace opacity - inferior lingula segment inferior aspect LEFT major fissure perhaps corresponding to atelectasis and/or early infiltrate. Right solid pulm nodule upper lobe (9.7 mm). Heterogeneous appearance of the liver posterior aspect right hepatic lobe and medial segment left hepatic lobe. Mildly dilated main pulm artery. Borderline cardiomegaly. CT head (12/06): No acute intracranial abnormality. Mild cerebral atrophy continue nebs, home inhalers Dr. Prasad, pulm consulted IV steroids deescalated to PO prednisone (12/08) rocephin / azithromycin (12/07-12/08) deescalated to PO augmentin per pulm (12/08-) blood cx (12/06): NGTD afebrile, leukocytosis improving (12/09) wean oxygen as tolerated. Patient does not have oxygen at home. R posterior chest pain tender just under R scapula. unclear etiology started in ~. Seen by Spine surgeon, pain management, PCP has been 12/11 pain, until ~10 days prior to admission, became 10/10 pain told it was not spine, and pain doc suspected was MSK in etiology had slight improvement with PT a few weeks ago, then this episode worsened given tenderness and location, could be muscular in etiology, which worsened secondary to COPD/pneumonia - use of muscle no signficiant findings to correlate pain on CT patient brought recent CT and MRI on CDs, given to radiology on 12/07, awaiting upload possible metastatic disease Recent cancer diagnosis now with multiple vertebral lesions suggestive of metastatic disease Patient reports being recently diagnosed with cancer from a mass in her spine but cannot recall further details. CTA chest this hospitalization with pulmonary / liver nodules as detailed above. had recent CT chest and MRI of the spine reports which were reviewed and noted emphysema, multiple nodules in the lung, liver nodule, multiple hypoattenuating lesions several T-spine vertebra suggestive of metastatic disease CD of outside images submitted to radiology to upload and interpret PRN norco Chronic a-fib on eliquis continue eliquis Hypertension confirm home meds, restart as appropriate VTE: home eliquis Code: Full Dispo: Home ~1-2 days Pending pulm recs / off oxygen / remains afebrile
[2023-12-10] MEDS: HYDROCODONE/APAP 10/325 TAB PO PRN (23:59)
[2023-12-11 04:37] LABS: Absolute Lymphocytes (CBC) 0.4 K/uL (0.7-4.9); Absolute Monocytes 1.5 K/uL (0.1-1.3); Absolute Neutrophil 12.1 K/uL (1.8-8.0); Eosinophils % 0.1 % (0-4.4); Hematocrit 40.1 % (36.0-45.0); Lymphocytes % 2.8 % (15.3-44.8); MCH 29.8 pg (27.0-35.0); MCHC 32.3 g/dL (32.0-36.0); MCV 92.1 fL (80-100); MPV 9.8 fL (7.6-11.3); Monocytes % 10.8 % (3.3-12.3); Platelets 105 thou/uL (152-406); RBC Red Blood Cell Count 4.36 M/uL (3.86-4.86); Red Cell Distribution Width 12.9 % (12.1-15.2)
[2023-12-11 04:41] LABS: Neutrophils % 86.3 % (41.7-73.7)
[2023-12-11 04:52] LABS: Albumin 2.7 g/dL (3.4-5.0); Albumin/Globulin Ratio 0.8 (1.1-1.8); Anion Gap 8.3 mEq/L (5.0-15.0); Bilirubin Total 1.1 mg/dL (0.2-1.0); Globulin 3.3 g/dL (2.3-3.5); Magnesium 2.2 mg/dL (1.6-2.4); Potassium 5.3 mEq/L (3.5-5.1)
[2023-12-11] MEDS: HYDROMORPHONE HCL 1 MG/ML INJ IV ONE (05:40)
--- NOTE | 2023-12-11 07:30 | RAD REPORT ---
EXAM DESCRIPTION: Cristi Single View12/11/2023 5:02 am CLINICAL HISTORY: Chest pain COMPARISON: December 07, 2023 FINDINGS: Lingular opacities appear mildly worsened. Right upper lobe pulmonary nodule stable The heart remains enlarged IMPRESSION: Lingular opacities appear mildly worsened which may indicate pneumonia
--- NOTE | 2023-12-11 09:20 | P.PN ---
Date of Service: 12/11/23 Subjective: Reports tried to get lung biopsy ~1 month ago but was too small to be done Had never been told about liver lesions until recently in outpatient by a nurse telling her she "has cancer". Did know about lung nodule for at least a month having some trouble catching her breathing due to what she thinks is a panic attack. +appears very anxious and tearful at times Prior to episode thinks her breathing was a little better last 12-24 hours remains on 3L NC. started process for home oxygen. reportedly desat in 80s on room air with some activity yesterday last colonoscopy 5-10 years ago back pain ~same ROS: 10 point ROS as noted above, otherwise negative Physical Exam: GEN: Alert, oriented, anxious, tearful at times HEENT: Normal conjunctiva, sclera anicteric CV: Regular rate and rhythm, no edema Pulm: Nonlabored respirations on 3L NC, diminished at bases bilaterally, +expiratory wheezes ABD: Soft, nontender, nondistended Neuro: Normal speech, normal affect vitals reviewed Problem List: Acute hypoxic respiratory failure secondary to acute COPD exacerbation / pneumonia R posterior chest pain Recent cancer diagnosis now with multiple vertebral lesions suggestive of metastatic disease Elevated LFTs Chronic a-fib on eliquis Hypertension Acute hypoxic respiratory failure secondary to acute COPD exacerbation / pneumonia Patient reports worsening dyspnea for ~1 week with associated night sweats and intermittent confusion CTA chest (12/06): Diffuse centrilobular emphysematous changes. Focal area of airspace opacity - inferior lingula segment inferior aspect LEFT major fissure perhaps corresponding to atelectasis and/or early infiltrate. Right solid pulm nodule upper lobe (9.7 mm). Heterogeneous appearance of the liver posterior aspect right hepatic lobe and medial segment left hepatic lobe. Mildly dilated main pulm artery. Borderline cardiomegaly. CT head (12/06): No acute intracranial abnormality. Mild cerebral atrophy CXR (12/10): lingular opacities mildly worsened continue nebs, home inhalers Dr. Prasad, pulm consulted IV steroids deescalated to PO prednisone (12/08) rocephin / azithromycin (12/07-12/08) deescalated to PO augmentin per pulm (12/08-) blood cx (12/06): NGTD afebrile, leukocytosis improving (12/10) Remains on 3L NC. started process for home oxygen. reportedly desat in 80s on room air with some activity yesterday. Not on oxygen prior to this hospitalization .5 mg IV ativan ordered d/t panic attack / anxiety. Doesn't take anything at home for anxiety. R posterior chest pain tender just under R scapula. unclear etiology started in ~. Seen by Spine surgeon, pain management, PCP has been / pain, until ~10 days prior to admission, became 10/10 pain told it was not spine, and pain doc suspected was MSK in etiology had slight improvement with PT a few weeks ago, then this episode worsened given tenderness and location, could be muscular in etiology, which worsened secondary to COPD/pneumonia - use of muscle no signficiant findings to correlate pain on CT patient brought recent CT and MRI on CDs, given to radiology on 12/07, awaiting upload multiple lesions suggestive of metastatic disease. discussed with radiology on 12/09 evening - none easily amenable for biopsy. liver lesions small, but not all liver was visualized due to CT chest only check liver U/S to eval for further lesions Recent cancer diagnosis now with multiple vertebral lesions suggestive of metastatic disease Patient reports being recently diagnosed with cancer from a mass in her spine but cannot recall further details. CTA chest this hospitalization with pulmonary / liver nodules as detailed above. had recent CT chest and MRI of the spine reports which were reviewed and noted emphysema, multiple nodules in the lung, liver nodule, multiple hypoattenuating lesions several T-spine vertebra suggestive of metastatic disease CD of outside images submitted to radiology to upload and interpret PRN norco Elevated LFTs liver ultrasound (12/10): ordered to further eval liver LFTs fluctuating this hospitalization hepatitis labs ordered Chronic a-fib on eliquis continue eliquis Hypertension confirm home meds, restart as appropriate VTE: home eliquis Code: Full Dispo: Home ~1-2 days Pending pulm recs / home O2 setup / remains afebrile
[2023-12-11] MEDS: LORazepam 2 MG/ML VIAL IV ONE (09:45)
[2023-12-11 13:35] LABS: Hepatitis B Core IgM Nonreactive (Nonreactive); Hepatitis B surface AG Interp. Nonreactive (Nonreactive); Hepatitis C Virus Ab Nonreactive (Nonreactive)
[2023-12-11 13:36] LABS: HBsAG Nonreactive Report Report
--- NOTE | 2023-12-11 21:11 | RAD REPORT ---
EXAM DESCRIPTION: US - Liver Only - 12/11/2023 3:11 pm CLINICAL HISTORY: eval liver/gallbladder,liver lesions, elevated lft COMPARISON: Chest For Pe Angio dated 12/07/2023; Chest Single View dated 12/11/2023; Head Brain Wo Cont dated 12/07/2023 TECHNIQUE: Sonographic grayscale and color flow images of the upper abdomen were obtained. FINDINGS: Liver demonstrates heterogeneous echotexture and increased echogenicity. Multiple ill-defi noreen hypoattenuating lesions throughout the right and left lobe. Mild contour nodularity. Hepatopetal flow appreciated in the main portal vein. The liver demonstrates no findings of intrahepatic biliary dilatation. Spleen is mildly enlarged, measuring 13.6 centimeter in long axis. Gallbladder is shows normal distention. Small mildly echogenic foci adherent to the wall, may represe nt small polyps or adherent sludge. Mild free perihepatic and perisplenic fluid. IMPRESSION: Heterogeneous appearance of the liver parenchyma with multiple ill-defined hypoattenuati ng lesions. Additional characterization by liver protocol CT or MRI would be helpful. Small adherent echogenic gallbladder wall foci, may represent small polyps or adherent sludge. Mild free perihepatic and perisplenic ascites.
[2023-12-11] MEDS: HYDROMORPHONE HCL 1 MG/ML INJ IV PRN (21:46)
[2023-12-12 06:37] LABS: Absolute Basophils 0.1 K/uL (0-0.5); Absolute Eosinophils 0.1 K/uL (0-0.5); Absolute Lymphocytes (CBC) 0.5 K/uL (0.7-4.9); Absolute Monocytes 1.8 K/uL (0.1-1.3); Absolute Neutrophil 16.5 K/uL (1.8-8.0); Basophils % 0.5 % (0-1.3); Eosinophils % 0.4 % (0-4.4); Hematocrit 40.3 % (36.0-45.0); Hemoglobin 13.2 g/dL (12.0-15.0); Lymphocytes % 2.7 % (15.3-44.8); MCH 29.8 pg (27.0-35.0); MCHC 32.7 g/dL (32.0-36.0); MCV 91.4 fL (80-100); MPV 9.4 fL (7.6-11.3); Monocytes % 9.3 % (3.3-12.3); Neutrophils % 87.1 % (41.7-73.7); Platelets 109 thou/uL (152-406); RBC Red Blood Cell Count 4.41 M/uL (3.86-4.86)
[2023-12-12 06:56] LABS: Albumin 2.7 g/dL (3.4-5.0); Albumin/Globulin Ratio 0.8 (1.1-1.8); Anion Gap 7.8 mEq/L (5.0-15.0); Bilirubin Total 1.7 mg/dL (0.2-1.0); Globulin 3.3 g/dL (2.3-3.5); Magnesium 2.2 mg/dL (1.6-2.4); Potassium 4.8 mEq/L (3.5-5.1)
--- NOTE | 2023-12-12 10:58 | P.PN ---
Date of Service: 12/12/23 Subjective: Reports some difficulty breathing similar to yesterday. anxious/tearful increased to 5L NC overnight Room sats checked yesterday evening; desat to 86% on room air at rest continues with back pain, denies any other pains afebrile ROS: 10 point ROS as noted above, otherwise negative Physical Exam: GEN: Alert, oriented, anxious, tearful at times HEENT: Normal conjunctiva, sclera anicteric CV: Regular rate and rhythm, no edema Pulm: Nonlabored respirations on 5L NC, diminished at bases bilaterally, +expiratory wheezes ABD: Soft, nontender, nondistended Neuro: Normal speech, normal affect vitals reviewed Problem List: Acute hypoxic respiratory failure secondary to acute COPD exacerbation / pneumonia R posterior chest pain Recent cancer diagnosis now with multiple vertebral lesions suggestive of metastatic disease Elevated LFTs Chronic a-fib on eliquis Hypertension Acute hypoxic respiratory failure secondary to acute COPD exacerbation / pneumonia Patient reports worsening dyspnea for ~1 week with associated night sweats and intermittent confusion CTA chest (12/06): Diffuse centrilobular emphysematous changes. Focal area of airspace opacity - inferior lingula segment inferior aspect LEFT major fissure perhaps corresponding to atelectasis and/or early infiltrate. Right solid pulm nodule upper lobe (9.7 mm). Heterogeneous appearance of the liver posterior aspect right hepatic lobe and medial segment left hepatic lobe. Mildly dilated main pulm artery. Borderline cardiomegaly. CT head (12/06): No acute intracranial abnormality. Mild cerebral atrophy CXR (12/10): lingular opacities mildly worsened CXR (12/11): ordered to f/u opacities continue nebs, home inhalers Dr. Prasad, pulm consulted IV steroids deescalated to PO prednisone (12/08) rocephin / azithromycin (12/07-12/08) deescalated to PO augmentin per pulm (12/08-) blood cx (12/06): NGTD afebrile, leukocytosis 14 -> 18.9 (11/11) Increased to 5L NC. started process for home oxygen. Room sats checked yesterday evening; desat to 86% on room air at rest . Not on oxygen prior to this hospitalization .5 mg IV ativan ordered 5/9 d/t panic attack / anxiety. Doesn't take anything at home for anxiety. add fentanyl patch (12/11) R posterior chest pain tender just under R scapula. unclear etiology started in ~. Seen by Spine surgeon, pain management, PCP has been 12/11 pain, until ~10 days prior to admission, became 10/ pain told it was not spine, and pain doc suspected was MSK in etiology had slight improvement with PT a few weeks ago, then this episode worsened given tenderness and location, could be muscular in etiology, which worsened secondary to COPD/pneumonia - use of muscle no signficiant findings to correlate pain on CT patient brought recent CT and MRI on CDs, given to radiology on 12/07, awaiting upload multiple lesions suggestive of metastatic disease. discussed with radiology on 12/09 evening - none easily amenable for biopsy. liver lesions small, but not all liver was visualized due to CT chest only liver U/S (12/10): multiple ill-defined hypoattenuating liver lesions. Mild free perihepatic and perisplenic ascites. Possible small polyp/adherent sludge Recent cancer diagnosis now with multiple vertebral lesions suggestive of metastatic disease Patient reports being recently diagnosed with cancer from a mass in her spine but cannot recall further details. CTA chest this hospitalization with pulmonary / liver nodules as detailed above. had recent CT chest and MRI of the spine reports which were reviewed and noted emphysema, multiple nodules in the lung, liver nodule, multiple hypoattenuating lesions several T-spine vertebra suggestive of metastatic disease CD of outside images submitted to radiology to upload and interpret PRN norco Elevated LFTs liver U/S (12/10): Heterogeneous appearance of the liver parenchyma with multiple ill-defined hypoattenuating lesions. Small adherent echogenic gallbladder wall foci, may represent small polyps or adherent sludge. Mild free perihepatic and perisplenic ascites. LFTs fluctuating this hospitalization hepatitis labs negative Chronic a-fib on eliquis continue eliquis Hypertension confirm home meds, restart as appropriate VTE: home eliquis Code: Full Dispo: Home ~1-2 days Pending pulm recs / home O2 setup / remains afebrile
[2023-12-12] MEDS: HYDROMORPHONE HCL 0.5 MG/0.5 ML INJ IV ONE ×2 (11:05→16:51)
[2023-12-12] MEDS: FENTANYL 25 MCG/PATCH TD SCH (11:58)
--- NOTE | 2023-12-12 14:10 | RAD REPORT ---
EXAM DESCRIPTION: Cristi Single View12/12/2023 1:48 pm CLINICAL HISTORY: Chest pain COMPARISON: December 11, 2023 FINDINGS: Lingular opacities have partially resolved Interstitial pattern within right lung base appears mildly prominent which may represent a mild infil trate Heart remains enlarged
--- NOTE | 2023-12-12 17:04 | P.PN ---
Subjective Date of Service: 12/12/23 Chief Complaint: Generalized pain Patient's condition is worsening she now complained of generalized pain not comfortable Review of Systems General: Weakness, Other (Severe generalized pain) Respiratory: Shortness of Breath Cardiovascular: Chest Pain Physical Examination - Vital Signs Temperature: 97.2 F Blood Pressure: 143/67 Pulse: 78 Respirations: 20 Pulse Ox (%): 95 - Physical Exam General: Alert, Moderate distress Respiratory: Clear to auscultation bilaterally Cardiovascular: No edema, Regular rate/rhythm, Normal S1 S2 Gastrointestinal: Normal bowel sounds, Soft and benign Assessment And Plan - Current Problems (Diagnosis) (1) Other nonspecific abnormal finding of lung field Current Visit: Yes Status: Acute Plan: RUL SPN, and LLL infiltrate,Previous MRI shows diffuse metastatic disease to the spineUltrasound of the chest shows multiple hypotensive lesions I suspect is consistent with metastasesLiver function tests have worsened. Recommend pain relief with the fentanyl patches prognosis poor (2) COPD (chronic obstructive pulmonary disease) Current Visit: Yes Status: Acute Plan: I have discontinued Augmentin the possibility of liver toxicity as a liver function tests of worsened Qualifiers: Emphysema type: unspecified
[2023-12-12] MEDS: HYDROMORPHONE HCL 0.5 MG/0.5 ML INJ IV PRN (19:18)
--- NOTE | 2023-12-12 20:06 | RAD REPORT ---
EXAM DESCRIPTION: CT - Abdomen W/Wo Contrast - 12/12/2023 6:53 pm CLINICAL HISTORY: Abdominal pain COMPARISON: December 11, 2023 ultrasound TECHNIQUE: Computed axial tomography of the abdomen and pelvis was obtained. IV was not requested. O ral contrast was given. Coronal reconstructions performed. All CT scans are performed using dose optimization technique as appropriate and may include automated exposure control or mA/KV adjustment according to patient size. FINDINGS: The evaluation of solid organs and vessels is limited secondary to the lack of contrast a dministration. The liver contains many low to intermediate density lesions. The largest lies within the left lobe me asuring 3.7 centimeters. 1.9 centimeter pancreatic tail mass. Small to moderate amount of ascites Small nonobstructing left renal calculus. Right kidney and adrenal glands unremarkable Low-density is present throughout the spleen. In addition there is a subcapsular splenic fluid collec tion extending into the left subphrenic space. It is heterogeneous. The subphrenic component contains increased density after the administration of contrast indicating active extravasation. IMPRESSION: Splenic rupture with active bleeding. It is possible that the patient initially had a sp lenic infarction 1.9 centimeter pancreatic tail mass likely primary neoplasm Hepatic lesions likely metastases Examination was discussed with Dr. Starr
[2023-12-12] MEDS: NA CHLORIDE 0.9% 1,000 ML IV SCH (21:07)
[2023-12-12 21:13] LABS: Hematocrit 42.6 % (36.0-45.0); Hemoglobin 13.5 g/dL (12.0-15.0); MCH 29.3 pg (27.0-35.0); MCHC 31.7 g/dL (32.0-36.0); MCV 92.2 fL (80-100); MPV 9.8 fL (7.6-11.3); Platelets 112 thou/uL (152-406); RBC Red Blood Cell Count 4.62 M/uL (3.86-4.86); Red Cell Distribution Width 13.4 % (12.1-15.2)
[2023-12-12] MEDS: TRANEXAMIC ACID 1,000 MG/10 ML VIAL IV ONE (21:24)
[2023-12-12] MEDS: TRANEXAMIC ACID 1,000 MG in NA CHLORIDE 0.9% 50 ML IV STA (21:26)
[2023-12-12] MEDS: VITAMIN K (ADULT) 10 MG/ML IVP ONE (21:27)
[2023-12-12] MEDS: NA CHLORIDE 0.9% 50 ML ONE (21:27)
--- NOTE | 2023-12-12 21:45 | P.PN ---
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 Patient is currently stable although complaining of generalized pain was started on narcotics hemodynamically stable questions transfer to a tertiary care trauma center will transfuse as per pharmacy recommendations transxanic acid, recheck of blood count possible blood transfusion and vitamin K patient is in some distress otherwise hemodynamically stable family members at the bedside chest clear very alert and responsive on examination abdomen has some generalized tenderness deep tenderness no rebound positive bowel sounds CT scan reviewed report reviewed
[2023-12-12 21:56] LABS: INFLUENZA A NAA NEGATIVE (NEGATIVE); RESPIRATORY SYNCYTIAL VIR NAA NEGATIVE (NEGATIVE); SARS-COV-2 RT PCR NEGATIVE (NEGATIVE)
[2023-12-12] MEDS: HYDROMORPHONE HCL 1 MG/ML INJ IV PRN (22:12)
[2023-12-12] MEDS: PIPER TAZO 3.375 GM in NA CHLORIDE 0.9% 100 ML IV SCH (22:59)
[2023-12-12] MEDS: NA CHLORIDE 0.9% 250 ML ONE (23:21)
[2023-12-13 02:42] VITALS: BMI 36.3
[2023-12-13 06:25] LABS: Absolute Basophils 0.1 K/uL (0-0.5); Absolute Eosinophils 0.1 K/uL (0-0.5); Absolute Lymphocytes (CBC) 0.6 K/uL (0.7-4.9); Absolute Monocytes 2.1 K/uL (0.1-1.3); Absolute Neutrophil 16.9 K/uL (1.8-8.0); Basophils % 0.3 % (0-1.3); Eosinophils % 0.5 % (0-4.4); Hematocrit 38.8 % (36.0-45.0); Hemoglobin 12.5 g/dL (12.0-15.0); Lymphocytes % 2.9 % (15.3-44.8); MCH 29.4 pg (27.0-35.0); MCHC 32.1 g/dL (32.0-36.0); MCV 91.7 fL (80-100); MPV 8.9 fL (7.6-11.3); Monocytes % 10.6 % (3.3-12.3); Neutrophils % 85.7 % (41.7-73.7); Nucleated Red Blood Cells % 0.1 % (0-0); Platelets 93 thou/uL (152-406); RBC Red Blood Cell Count 4.23 M/uL (3.86-4.86); Red Cell Distribution Width 13.5 % (12.1-15.2)
[2023-12-13 06:40] LABS: Albumin 2.3 g/dL (3.4-5.0); Albumin/Globulin Ratio 0.8 (1.1-1.8); Anion Gap 8.6 mEq/L (5.0-15.0); Bilirubin Total 2.1 mg/dL (0.2-1.0); Potassium 4.6 mEq/L (3.5-5.1); Protein, Total 5.3 g/dL (6.4-8.2)
[2023-12-13 07:14] LABS: Blood Morphology Comment NOTED (NOT SEEN); Hypochromasia 1+; Platelet Estimate DECR; White Blood Cell Scan OK (OK)
--- NOTE | 2023-12-13 10:02 | P.PN ---
Date of Service: 12/13/23 Subjective: feels worse overall compared to yesterday; unable to elaborate further initiated transfer to tertiary level of care facility yesterday following CT results per nursing note: Interventional Radiologist Dr. Fernandes from [facility] felt transfer for IR was not appropriate after reviewing CTA abdomen didn't show any extravasation feels back pain is slightly more tolerable after fentanyl patch Down to 3L NC. no BM, +flatus. Doesn't feel constipated. minimal PO intake / appetite Denies trouble urinating. Feels like she is fully emptying bladder when she has to go afebrile ROS: 10 point ROS as noted above, otherwise negative Physical Exam: GEN: anxious, appears uncomfortable, restless HEENT: Normal conjunctiva, sclera anicteric CV: Regular rate and rhythm, trace edema Pulm: Nonlabored respirations on 3L NC, diminished at bases bilaterally, +expiratory wheezes ABD: Soft, nontender, mild abdominal distention Neuro: Normal speech, normal affect vitals reviewed Problem List: Acute, spontaneous splenic rupture Acute hypoxic respiratory failure secondary to acute COPD exacerbation / pneumonia Elevated LFTs Recent cancer diagnosis now with multiple vertebral and liver lesions, suggestive of metastatic disease 1.9 cm Pancreatic tail mass; new finding 12/12; suspected primary mass R posterior chest pain Chronic a-fib on eliquis Hypertension Acute, spontaneous splenic rupture CT abdomen (12/11): splenic rupture with active bleeding. possible that patient initially had splenic infarction. 1.9cm pancreatic tail mass. multiple hepatic lesions. CTA abdomen (12/12): Wedge shaped hypodensitiy centrally within the spleen possibly representing splenic rupture with surrounding free fluid. No active contrast extravasation seen on this study. Large amount of free fluid throughout abdomen 1.9 cm pancreatic tail mass. Multiple hypodensities throughout the liver. acute or subacute compression fracture of L3. Diverticulosis IVF started overnight after CT findings per Dr. Prasad will dc today to avoid worsening edema/ascites Initiated transfer to tertiary level of care facility 12/[address] results with splenic rupture and active extravasation per nursing note 12/12: Interventional Radiologist Dr. Fernandes from [facility] felt transfer for IR was not appropriate after reviewing CTA abdomen Given 1 uPRBC overnight and stopped eliquis; given vit k , tranexamic acid asymptomatic. Vitals stable. hgb stable. Discussed with family possibility of transferring to ICU as a precaution for close monitoring. They would like to keep patient of the floor for now. Amenable to ICU if absolutely needed. serial H&H q12h. Will monitor closely repeat CT abdomen friday to ensure no active bleeding discussed all findings in detail with patient and daughter Acute hypoxic respiratory failure secondary to acute COPD exacerbation / pneumonia Patient reports worsening dyspnea for ~1 week with associated night sweats and intermittent confusion CTA chest (12/06): Diffuse centrilobular emphysematous changes. Focal area of airspace opacity - inferior lingula segment inferior aspect LEFT major fissure perhaps corresponding to atelectasis and/or early infiltrate. CXR (12/11): lingular opacities partially resolved. Interstitial pattern within right lung base may represent mild infiltrate Qualified for home oxygen. In process of being setup. Not on oxygen prior to this hospitalization Dr. Prasad, pulm consulted continue nebs, home inhalers, PO prednisone rocephin / azithromycin (12/07-12/08) deescalated to PO augmentin per pulm (12/08-) afebrile, leukocytosis improving blood cx (12/06): NGTD augmentin DC'd 12/12 due to possibly contributing to elevated LFTs Elevated LFTs liver U/S (12/10): Heterogeneous appearance of the liver parenchyma with multiple ill-defined hypoattenuating lesions. Mild free perihepatic and perisplenic ascites. Small adherent echogenic gallbladder wall foci, may represent small polyps or adherent sludge. CTA abdomen (12/12): splenic rupture without evidence of active bleeding. 1.9 cm pancreatic tail mass. Multiple hypodensities throughout the liver. LFTs fluctuating this hospitalization. hepatitis labs negative secondary to lesions / cancer vs medication vs congestion Recent cancer diagnosis now with multiple vertebral and liver lesions, suggestive of metastatic disease 1.9 cm Pancreatic tail mass; new finding 12/12; suspected primary mass Patient reports being recently diagnosed with cancer from a mass in her spine but cannot recall further details. had recent CT chest and MRI of the spine reports which were reviewed and noted emphysema, multiple nodules in the lung, liver nodule, multiple hypoattenuating lesions several T-spine vertebra suggestive of metastatic disease CTA chest (12/06): Right solid pulm nodule upper lobe (9.7 mm). Heterogeneous appearance of the liver posterior aspect right hepatic lobe and medial segment left hepatic lobe. CT abdomen / liver ultrasound / CTA abdomen with multiple multiple hypodensities throughout the liver / 1.9 cm pancreatic tail mass. CD of outside images submitted to radiology to upload and interpret CTA abdomen with newly discovered pancreatic mass 1.9 cm. Suspect pancreatic tail mass may be original source of metastatic disease May be able to get biopsy once more stable pain control PRN ativan .5 mg IV for anxiety R posterior chest pain tender just under R scapula. Unclear etiology started in ~. Seen by Spine surgeon, pain management, PCP. told it was not spine, and pain doc suspected was MSK in etiology has been 5/10 pain and had slight improvement with PT a few weeks ago. until ~10 days prior to admission, became 10/10 pain given tenderness and location, could be muscular in etiology, which worsened secondary to COPD/pneumona no signficiant findings to correlate pain on CT patient brought recent CT and MRI on CDs, given to radiology on 12/07, awaiting upload multiple lesions suggestive of metastatic disease. discussed with radiology on 12/09 evening - none easily amenable for biopsy. liver lesions small, but not all liver was visualized due to CT chest only liver U/S (12/10): multiple ill-defined hypoattenuating liver lesions. Mild free perihepatic and perisplenic ascites. Possible small polyp/adherent sludge pain control - added fentanyl patch (12/11) Chronic a-fib on eliquis hold eliquis for now given splenic rupture Hypertension confirm home meds, restart as appropriate VTE: hold eliquis for now given splenic rupture Code: Full Dispo: Pending transfer Initiated transfer to tertiary level of care facility yesterday following CT re sults with splenic rupture given risks / possibility of active bleeding.
[2023-12-13] MEDS ORDERED: POLYETHYL GLY 3350 17 GM/DOSE PO PRN (11:09)
[2023-12-13] MEDS: LORazepam 2 MG/ML VIAL IV PRN (12:51)
[2023-12-13 16:13] VITALS: O2SAT 95
[2023-12-13 18:49] LABS: Hematocrit 43.7 % (36.0-45.0); Hemoglobin 14.3 g/dL (12.0-15.0)
[2023-12-13 20:26] VITALS: BP 149/71; TEMP 97.1
[2023-12-13] MEDS ORDERED: PIPER TAZO 3.375 GM in NA CHLORIDE 0.9% 100 ML IV SCH (22:30)
--- NOTE | 2023-12-14 06:55 | P.DS ---
Admission Date: 12/08/23 Discharge Date: 12/14/23 Disposition: TRANSFER TO [facility] Discharge Condition: GOOD Reason for Admission: Generalized pain Consultations: Pulmonlogy - Dr. Prasad Brief History of Present Illness: 73yo F, PMH: COPD, hypertension, atrial fibrillation, kidney stones Patient presented to the ED with shortness of breath. Patient denies any fever or chills. Shortness of breath was insidious in onset. Patient had similar episodes in the past. She states that she has been recently been diagnosed with cancer does not know the details. Shortness of breath started all of a sudden and has been progressively worsening. She has mid back pain. No history of trauma. Back pain has been there for longer time. Patient denies any chest pain. No cough. No nausea vomiting or diarrhea. Patient was noted to be hypoxic and was placed on oxygen. Patient does not use oxygen at home. Patient was assessed in the ER and is admitted for further management of COPD exacerbation Hospital Course: Problem List: Acute, spontaneous splenic rupture Acute hypoxic respiratory failure secondary to acute COPD exacerbation / pneum onia Elevated LFTs Recent cancer diagnosis now with multiple vertebral and liver lesions, suggestive of metastatic disease 1.9 cm Pancreatic tail mass; new finding 12/12; suspected primary mass R posterior chest pain Chronic a-fib on eliquis Hypertension Physical Exam: GEN: anxious, appears uncomfortable, restless HEENT: Normal conjunctiva, sclera anicteric CV: Regular rate and rhythm, trace edema Pulm: Nonlabored respirations on 3L NC, diminished at bases bilaterally, +expiratory wheezes ABD: Soft, nontender, mild abdominal distention Neuro: Normal speech, normal affect Vital Signs/Physical Exam: Temp Pulse Resp BP Pulse Ox 97.1 F 87 16 149/71 H 97 12/13/23 20:00 12/13/23 20:00 12/13/23 20:39 12/13/23 20:00 12/13/23 20:39 Laboratory Data at Discharge: WBC 19.70 thou/uL (4.3-10.9) H 12/13/23 06:09 Hgb 14.3 g/dL (12.0-15.0) D 12/13/23 18:38 Hct 43.7 % (36.0-45.0) 12/13/23 18:38 Plt Count 93 thou/uL (152-406) L 12/13/23 06:09 PT 25.4 SECONDS (9.5-12.5) H 12/07/23 20:56 INR 2.37 12/07/23 20:56 APTT 29.1 SECONDS (24.3-36.9) 12/07/23 20:56 Sodium 136 mEq/L (136-145) 12/13/23 06:09 Potassium 4.6 mEq/L (3.5-5.1) 12/13/23 06:09 BUN 27 mg/dL (7-18) H 12/13/23 06:09 Creatinine 0.74 mg/dL (0.55-1.02) 12/13/23 06:09 Glucose 105 mg/dL (74-106) 12/13/23 06:09 Magnesium 2.2 mg/dL (1.6-2.4) 12/12/23 06:12 Total Bilirubin 2.1 mg/dL (0.2-1.0) H 12/13/23 06:09 AST 114 U/L (15-37) H 12/13/23 06:09 ALT 128 U/L (13-56) H 12/13/23 06:09 Alkaline Phosphatase 306 U/L (45-117) H 12/13/23 06:09 Home Medications: Budesonide/Glycopyr/Formoterol [Breztri Aerosphere Inhaler] 2 puff IH DAILY 05/19/23 Flecainide Acetate 50 mg PO BID 05/19/23 Levalbuterol Tartrate [Levalbuterol Tartrate Hfa] 2 puff IH PRN PRN 05/19/23 Apixaban [Eliquis] 5 mg PO BID 12/08/23 Hydrocodone Bit/Acetaminophen [[place] 10-325 Tablet] 750 mg PO Q8H PRN 12/08/23 Losartan Potassium [Cozaar] 25 mg PO DAILY 12/08/23 Metoprolol Tartrate [Lopressor] 25 mg PO BID 12/08/23 methocarbamoL [Robaxin*] 10 - 325 mg PO Q6H PRN 12/08/23 Physician Discharge Instructions: Home Oxygen Arrangements: [place] [address] [id number] [email or web address] Followup: Ethan Hernandez MD [Primary Care Provider] - Time spent managing pt's care (in minutes): 45
--- NOTE | 2023-12-15 11:20 | RAD REPORT ---
EXAM DESCRIPTION: Abdomen Angio CLINICAL HISTORY: Splenic rupture COMPARISON: 12/12/2023 TECHNIQUE: CTA of the abdomen and pelvis performed following IV administration of iodinated contra st. 3-D/MIP reformatted imaging available. This exam was performed according to our departmental dose -optimization program, which includes automated exposure control, adjustment of the mA and/or kV acco rding to patient size and/or use of iterative reconstruction technique. FINDINGS: Lung Bases: Mild bibasilar dependent opacities. Bones: Multilevel degenerative disc height narrowing, endplate spondylosis, and facet arthropathy thr oughout the visualized spine. Acute or subacute compression fracture of L3 with approximately 10% los s of anterior vertebral body height. Osteoarthritic change of the hips. Abdomen: Liver: Multiple hypodensities throughout the liver again identified. Gallbladder: No calcified gallstones. Spleen, Pancreas, and Adrenal Glands: 1.9 cm pancreatic tail mass again identified. Adrenal glands are unremarkable. Wedge-shaped hypodensity centrally within the spleen possibly representing splenic rupture again identified with surrounding free fluid. No active contrast extravasation identified on this study. Kidneys: No hydronephrosis or obstructing calculus. Vasculature: Normal caliber abdominal aorta with straight line flow into the common iliac, external i liac, and common femoral arteries. The visceral and renal arteries are patent. No pseudoaneurysm iden tified. The portal vein is patent. The proximal visceral and renal arteries are patent. Stomach: Small hiatal hernia. Other: No free intraperitoneal air. Large amount of free fluid. Infiltrative appearance of the an terior abdominal mesentery. Pelvis: Bladder: Urinary bladder is unremarkable. Urinary bladder diverticula Bowel: No dilated loops of large or small bowel. Scattered diverticula of the colon. Appendix: Normal appendix. Pelvis: Hysterectomy. IMPRESSION: 1. Wedge-shaped hypodensity centrally within the spleen possibly representing splenic rupture again identified with surrounding free fluid. No active contrast extravasation identified on this study. 2. Large amount of free fluid throughout the abdomen. 3. 1.9 cm pancreatic tail mass again identified concerning for neoplasm. 4. Acute or subacute compression fracture of L3 with approximately 10% loss of anterior vertebral b stevo height. 5. Diverticulosis without evidence of acute diverticulitis. 6. Multiple hypodensities throughout the liver again identified concerning for metastatic disease. Electronically signed by: Kolby Jordan DO 12/13/2023 05:16 AM CDT M Due to temporary technical issues with the PACS/Fluency reporting system, reports are being signed by the in house radiologist without review as a courtesy to ensure prompt reporting. The interpreting r adiologist is fully responsible for the content of the report.
== END 2023-12-13 21:32 | disposition short-term general hospital (02) | DRG 193 ==
LOC: ER 20:32 → ERHOLD 12-08 02:00 → 4TH 12-08 02:12
PROVIDERS: ADMIT Family Medicine; ATTEND Hospitalist
PROC: 30233N1 Transfusion of Nonautologous Red Blood Cells into Peripheral Vein, Percutaneous Approach (ICD-10-PCS; principal; 2023-12-12)
DX: J18.9 Pneumonia, unspecified organism (principal); J96.01 Acute respiratory failure with hypoxia; C78.7 Secondary malignant neoplasm of liver and intrahepatic bile duct; E87.1 Hypo-osmolality and hyponatremia; I48.20 Chronic atrial fibrillation, unspecified; R18.8 Other ascites; C25.9 Malignant neoplasm of pancreas, unspecified; C79.51 Secondary malignant neoplasm of bone; D73.5 Infarction of spleen; J43.9 Emphysema, unspecified; F41.9 Anxiety disorder, unspecified; I10 Essential (primary) hypertension; R91.8 Other nonspecific abnormal finding of lung field; R79.89 Other specified abnormal findings of blood chemistry; Z88.2 Allergy status to sulfonamides; Z11.52 Encounter for screening for COVID-19; Z79.01 Long term (current) use of anticoagulants; Z87.891 Personal history of nicotine dependence; Z79.899 Other long term (current) drug therapy
CPT/HCPCS: 0241U; 36415; 70450; 71045; 71275; 74170; 74175; 76705; 80048; 80053; 80074; 81001; 82947; 83605; 83735; 85014; 85018; 85025; 85027; 85610; 85730; 86301; 86850; 86900; 86901; 86920; 87040; 93005; 94640; 94760; 99285; J0696; J1170; J1815; J2270; J2543; J2919; J2920; J3010; J3430; J7030; J7050; J7512; J7613; J7614; J7644; P9016; Q9967